=== PATIENT | female | born 1930 | race Asian ===

== ENCOUNTER 2017-04-20 22:50 | Inpatient (IN) | payer BC ==
[~2017-04-20] VITALS: Ht 160 cm; Wt 69.9 kg
[~2017-04-20 22:50] MED LIST: APIX2.5T PO; FAMO-129 PO; FERR-57 PO; FURO-150 PO; GABA-531 PO; GLIM4TAB PO; LEVO75TA7 PO; POTA20TA83 PO; SOLI5TAB6 PO; TRAM50TA2 PO
[2017-04-20 22:52] VITALS: BP_SYST 154
[2017-04-20] MEDS ORDERED: NACL 0.9% 1,000 ML IV ONE (22:59)
[2017-04-20] MEDS ORDERED: ONDANSETRON HCL 4 MG/2 ML VIAL IVP ONE (23:00)
[2017-04-20] MEDS ORDERED: FURO20TA4 PO (23:13)
[2017-04-20 23:25] LABS: BASOPHILS # (AUTO) 0.2 K/uL (0.0-0.2); BASOPHILS % (AUTO) 1.8 % (0.0-2.0); HEMATOCRIT 35.2 % (36-48); HEMOGLOBIN 11.8 g/dL (12.0-16.0); LYMPHOCYTES # (AUTO) 0.6 K/uL (1.0-5.5); LYMPHOCYTES % (AUTO) 4.3 % (20.5-51.5); MEAN CORPUSCULAR HEMOGLOBIN 30 pg (27-31); MEAN CORPUSCULAR HGB CONC 34 % (32-36); MEAN CORPUSCULAR VOLUME 91 fL (79.0-98.0); MONOCYTES % (AUTO) 7.7 % (1.7-9.3); NEUTROPHILS # (AUTO) 11.6 K/uL (1.8-7.7); NEUTROPHILS % (AUTO) 86.2 % (40.0-70.0); PLATELET COUNT (AUTO) 216 K/uL (130-430); RED BLOOD CELL COUNT(AUTO) 3.89 MIL/uL (4.2-6.2); RED CELL DISTRIBUTION WIDTH 13.2 % (9.0-15.0); WHITE BLOOD COUNT (AUTO) 13.4 K/uL (4.8-10.8)
[2017-04-20 23:33] LABS: ANION GAP 9 (5-15); CALCIUM 8.4 mg/dL (8.4-11.0); CHLORIDE 95 mmol/L (98-107); CREATININE 1.43 mg/dL (0.55-1.30); GLUCOSE 311 mg/dL (70-99); POTASSIUM 3.5 mmol/L (3.5-5.1); SODIUM SERUM 127 mmol/L (136-145); UREA NITROGEN, BLOOD 26 mg/dL (8-21)
[2017-04-20 23:37] LABS: PROTHROMBIN TIME 10.8 SECS (9.5-12.5)
[2017-04-20 23:38] LABS: ALANINE AMINOTRANSFERASE 17 U/L (12-78); AMYLASE 35 U/L (0-100); ASPARTATE AMINOTRANSFERASE 18 U/L (10-37); LIPASE 145 U/L (73-393); TOTAL BILIRUBIN 1.3 mg/dL (0.0-1.0); TOTAL PROTEIN, SERUM 7.7 g/dL (6.4-8.3)
[2017-04-21] VITALS (25 sets, daily range): BP systolic 86–164
[2017-04-21] MEDS ORDERED: LOSA25TA3 PO (00:53)
[2017-04-21] MEDS ORDERED: RALO60TA PO (00:53)
[2017-04-21] MEDS ORDERED: INSU100V9 SUBCUT (00:53)
[2017-04-21] MEDS ORDERED: ASPI-1063 PO (00:53)
[2017-04-21 01:10] LABS: BILIRUBIN,URINE NEGATIVE (NEGATIVE); BLOOD, URINE 3+ (NEGATIVE); CLARITY/URINE CLOUDY (CLEAR); COLOR,URINE YELLOW (YELLOW); GLUCOSE,URINE 3+ (NEGATIVE); KETONES,URINE 1+ (NEGATIVE); LEUKOCYTE ESTERASE ,URINE 1+ (NEGATIVE); NITRITE, URINE NEGATIVE (NEGATIVE); PROTEIN URINE 3+ (NEGATIVE); UROBILINOGEN,URINE 0.2 (0.2-1.0)
[2017-04-21 01:37] LABS: BACTERIA,URINE FEW /HPF (None Seen); WBC,URINE 50-80 /HPF (0-3)
[2017-04-21 01:38] LABS: MUCUS,URINE None Seen /LPF (None Seen)
[2017-04-21] MEDS: NACL 0.9% 1,000 ML IV SCH ×3 (01:45→18:46)
[2017-04-21] MEDS ORDERED: INSULIN REGULAR, HUMAN 100 UNITS/ML, 10 ML VIAL (novoLIN R) SUBCUT PRN (01:45)
[2017-04-21] MEDS ORDERED: FERR-57 PO (01:50)
[2017-04-21] MEDS ORDERED: ALBU8.5H8 INH (01:50)
[2017-04-21] MEDS ORDERED: MULT-1164 PO (01:50)
[2017-04-21] MEDS ORDERED: PIPERACILLIN/TAZO 3.375/DEX-IS 50 ML IV SCH (03:15)
[2017-04-21] MEDS ORDERED: PIPERACILLIN/TAZO 3.375/DEX-IS 50 ML IV ONE (04:00)
[2017-04-21] MEDS ORDERED: PIPERACILLIN/TAZOBACTAM 3.375 GM/VIAL (ZOSYN) IV ONE (04:16)
[2017-04-21] MEDS ORDERED: HEPARIN SODIUM,PORCINE 3000 UNITS/0.6 ML BOLUS IVP PRN ×2 (06:00→18:30)
[2017-04-21] MEDS ORDERED: HEPARIN 25,000 UNITS in 250 ML PREMIX IV PRN (06:00)
[2017-04-21] MEDS ORDERED: HEPARIN SODIUM,PORCINE 5000 UNITS/ML VIAL IV ONE (06:00)
[2017-04-21] MEDS ORDERED: HEPARIN SODIUM,PORCINE 2000 UNITS/0.4 ML BOLUS IVP PRN ×2 (06:00→18:30)
[2017-04-21] MEDS ORDERED: LevALBUTEROL HCL 1.25 MG/0.5 ML *CONC.* VIAL.NEB (XOPENEX CONC.) INH PRN (06:15)
[2017-04-21] MEDS ORDERED: DILTIAZEM HCL 25 MG/5 ML VIAL IVP ONE (06:15)
[2017-04-21] MEDS ORDERED: methylPREDNISolone SOD SUCC 40 MG/ML VIAL ONE (06:28)
[2017-04-21 06:30] LABS: BLOOD GAS PH 7.371 (7.350-7.450)
[2017-04-21] MEDS ORDERED: methylPREDNISolone SOD SUCC 40 MG/ML VIAL IVP ONE (06:30)
[2017-04-21 06:31] LABS: ABG TOTAL HEMOGLOBIN 14.1 G/dL (12.0-18.0)
[2017-04-21 06:32] LABS: BLOOD GAS COHb% 0.4 % (0.5-1.5); BLOOD GAS HHB 11.1 % (0.0-6.0); BLOOD O2Hb% 88.2 % (94.0-97.0)
[2017-04-21] MEDS ORDERED: FUROSEMIDE 40 MG/4 ML VIAL IVP ONE (06:40)
[2017-04-21] MEDS ORDERED: FUROSEMIDE 40 MG/4 ML VIAL ONE (06:47)
[2017-04-21] MEDS: LevALBUTEROL HCL 1.25 MG/0.5 ML *CONC.* VIAL.NEB (XOPENEX CONC.) INH SCH ×5 (06:53→23:16)
[2017-04-21] MEDS ORDERED: BUDESONIDE 0.5 MG/2 ML AMPUL.NEB INH SCH ×2 (07:00→09:00)
[2017-04-21] MEDS ORDERED: NACL 0.9% 1,000 ML IV SCH (07:17)
[2017-04-21] MEDS ORDERED: ACETAMINOPHEN 325 MG TABLET PO PRN (07:30)
[2017-04-21] MEDS ORDERED: MORPHINE 2 MG/ML INJ. SYRINGE IVP PRN ×2 (07:30→11:45)
[2017-04-21] MEDS ORDERED: ONDANSETRON HCL 4 MG/2 ML VIAL IVP PRN (07:30)
[2017-04-21] MEDS ORDERED: cefTRIAXone 1 GM in D5W 50 ML IV SCH (07:30)
[2017-04-21] MEDS ORDERED: DEXTROSE 50%-WATER 50 ML DISP.SYRIN IVP PRN ×2 (08:00)
[2017-04-21] MEDS ORDERED: GLUCOSE 15 GM GEL (in 37.5 GM TUBE) PO PRN ×2 (08:00)
[2017-04-21] MEDS ORDERED: SUCCINYLCHOLINE CHLORIDE 20 MG/ML(QUELICIN) ONE (08:00)
[2017-04-21] MEDS ORDERED: ETOMIDATE 20 MG/ 10 ML VIAL (AMIDATE) ONE (08:00)
[2017-04-21 08:13] LABS: ALANINE AMINOTRANSFERASE 19 U/L (12-78); ALBUMIN 2.9 g/dL (3.4-4.8); AMYLASE 46 U/L (0-100); ANION GAP 11 (5-15); ASPARTATE AMINOTRANSFERASE 31 U/L (10-37); CALCIUM 8.3 mg/dL (8.4-11.0); CHLORIDE 98 mmol/L (98-107); CREATININE 1.59 mg/dL (0.55-1.30); GLUCOSE 370 mg/dL (70-99); LIPASE 110 U/L (73-393); PHOSPHORUS 3.6 mg/dL (2.7-4.5); POTASSIUM 3.8 mmol/L (3.5-5.1); SODIUM SERUM 130 mmol/L (136-145); THYROID STIMULATING HORMONE 0.35 uIu/mL (0.34-4.82); TOTAL BILIRUBIN 1.4 mg/dL (0.0-1.0); UREA NITROGEN, BLOOD 26 mg/dL (8-21)
[2017-04-21 08:20] LABS: HEMATOCRIT 40.5 % (36-48); MEAN CORPUSCULAR HEMOGLOBIN 30 pg (27-31); MEAN CORPUSCULAR HGB CONC 32 % (32-36); MEAN CORPUSCULAR VOLUME 92 fL (79.0-98.0); PLATELET COUNT (AUTO) 232 K/uL (130-430); RED BLOOD CELL COUNT(AUTO) 4.39 MIL/uL (4.2-6.2); RED CELL DISTRIBUTION WIDTH 13.3 % (9.0-15.0); WHITE BLOOD COUNT (AUTO) 17.7 K/uL (4.8-10.8)
[2017-04-21 08:21] LABS: BILIRUBIN,URINE NEGATIVE (NEGATIVE); BLOOD, URINE 2+ (NEGATIVE); CLARITY/URINE CLOUDY (CLEAR); COLOR,URINE YELLOW (YELLOW); GLUCOSE,URINE 3+ (NEGATIVE); KETONES,URINE NEGATIVE (NEGATIVE); LEUKOCYTE ESTERASE ,URINE 3+ (NEGATIVE); NITRITE, URINE NEGATIVE (NEGATIVE); PROTEIN URINE 2+ (NEGATIVE); UROBILINOGEN,URINE 0.2 (0.2-1.0)
[2017-04-21] MEDS: PROPOFOL DRIP 100 ML IV PRN ×2 (08:22→21:56)
[2017-04-21] MEDS ORDERED: LEVOTHYROXINE SODIUM 0.075 MG TABLET PO ONE (08:30)
[2017-04-21 08:52] LABS: BACTERIA,URINE FEW /HPF (None Seen); WBC,URINE >100 /HPF (0-3)
[2017-04-21] MEDS ORDERED: DOCUSATE SODIUM 100 MG CAPSULE PO SCH (09:00)
[2017-04-21] MEDS ORDERED: HEPARIN SODIUM,PORCINE 5000 UNITS/ML VIAL SUBCUT SCH (09:00)
[2017-04-21] MEDS ORDERED: ASPIRIN 81 MG TABLET(ECOTRIN) PO SCH (09:00)
[2017-04-21] MEDS ORDERED: APIXABAN 2.5 MG TABLET PO SCH (09:00)
[2017-04-21] MEDS ORDERED: *HEPARIN PER PHARMACY XX PRN (09:00)
[2017-04-21] MEDS ORDERED: RALOXIFENE HCL 60 MG TABLET (EVISTA) PO SCH (09:00)
[2017-04-21] MEDS ORDERED: POTASSIUM CHLORIDE 20 MEQ TAB.PRT.SR PO SCH (09:00)
[2017-04-21] MEDS ORDERED: LOSARTAN POTASSIUM 25 MG TABLET PO SCH (09:00)
[2017-04-21] MEDS: METOPROLOL TARTRATE 25 MG TABLET PO SCH ×2 (09:00→21:00)
[2017-04-21] MEDS ORDERED: NACL 0.9% 1,000 ML IV ONE (10:00)
[2017-04-21 10:24] LABS: BLOOD GAS PH 7.405 (7.350-7.450)
[2017-04-21] MEDS: FERROUS SULFATE 325 MG TABLET.DR PO SCH ×2 (10:24→21:00)
[2017-04-21] MEDS: GABAPENTIN 300 MG CAPSULE PO SCH ×2 (10:24→22:06)
[2017-04-21 10:25] LABS: ABG TOTAL HEMOGLOBIN 13.2 G/dL (12.0-18.0); BLOOD GAS BASE EXCESS -5.8 mmol/L (-3.0-3.0); BLOOD GAS COHb% 0.2 % (0.5-1.5); BLOOD GAS HHB 2.2 % (0.0-6.0); BLOOD O2Hb% 97.1 % (94.0-97.0)
[2017-04-21 10:38] LABS: BAND % (MANUAL) 14 % (0-6)
[2017-04-21 10:39] LABS: ATYPICAL LYMPHOCYTES % 4 % (0-0); BASOPHILS % (MANUAL) 0 % (0-2); EOSINOPHILS % (MANUAL) 0 % (0-7); LYMPHOCYTES % (MANUAL) 3 % (20-46); MONOCYTES % (MANUAL) 3 % (0-11)
[2017-04-21] MEDS: PIPERACILLIN/TAZO 2.25G/DEX-IS 50 ML IV SCH ×2 (11:08→18:12)
[2017-04-21] MEDS ORDERED: LORazepam 2 MG/ML VIAL IVP PRN (11:45)
[2017-04-21] MEDS ORDERED: INSULIN REGULAR, HUMAN 100 UNITS/ML, 10 ML VIAL SUBCUT ONE ×2 (13:15→18:15)
[2017-04-21] MEDS ORDERED: SUCCINYLCHOLINE CHLORIDE 20 MG/ML(QUELICIN) IVP ONE (15:00)
[2017-04-21] MEDS ORDERED: ETOMIDATE 20 MG/ 10 ML VIAL (AMIDATE) IVP ONE (15:00)
[2017-04-21] MEDS: INSULIN REGULAR, HUMAN 100 UNITS/ML, 10 ML VIAL (novoLIN R) SUBCUT PRN ×2 (17:01→22:27)
[2017-04-21] MEDS ORDERED: COMMUNICATION ORDER XX ONE (17:45)
[2017-04-21] MEDS: NOREPINEPHRINE BITARTRATE 4 MG in D5W 246 ML IV PRN (18:15)
[2017-04-21] MEDS: HEPARIN 25,000 UNITS/D5W 250ML 250 ML IV PRN (18:49)
[2017-04-21 19:33] LABS: ANION GAP 9 (5-15); CALCIUM 7.9 mg/dL (8.4-11.0); CHLORIDE 103 mmol/L (98-107); CREATININE 1.89 mg/dL (0.55-1.30); POTASSIUM 3.5 mmol/L (3.5-5.1); SODIUM SERUM 133 mmol/L (136-145); UREA NITROGEN, BLOOD 36 mg/dL (8-21)
[2017-04-21 19:36] LABS: GLUCOSE 424 mg/dL (70-99)
[2017-04-21] MEDS ORDERED: INSULIN GLARGINE 100 UNITS/ML 10 ML VIAL SUBCUT SCH (21:00)
[2017-04-21] MEDS ORDERED: methylPREDNISolone SOD SUCC 40 MG/ML VIAL IVP SCH (21:00)
[2017-04-21] MEDS ORDERED: SIMVASTATIN 20 MG TABLET PO SCH (21:00)
[2017-04-22] VITALS (29 sets, daily range): BP systolic 90–125
[2017-04-22] MEDS: PIPERACILLIN/TAZO 2.25G/DEX-IS 50 ML IV SCH ×4 (00:45→17:37)
[2017-04-22] MEDS: LevALBUTEROL HCL 1.25 MG/0.5 ML *CONC.* VIAL.NEB (XOPENEX CONC.) INH SCH ×6 (04:12→23:04)
[2017-04-22] MEDS: INSULIN REGULAR, HUMAN 100 UNITS/ML, 10 ML VIAL (novoLIN R) SUBCUT PRN ×3 (06:46→21:23)
[2017-04-22] MEDS: NACL 0.9% 1,000 ML IV SCH (06:47)
[2017-04-22 06:49] LABS: BASOPHILS % (AUTO) 0.1 % (0.0-2.0); HEMATOCRIT 31.2 % (36-48); HEMOGLOBIN 10.4 g/dL (12.0-16.0); LYMPHOCYTES # (AUTO) 0.6 K/uL (1.0-5.5); LYMPHOCYTES % (AUTO) 3.2 % (20.5-51.5); MEAN CORPUSCULAR HEMOGLOBIN 31 pg (27-31); MEAN CORPUSCULAR HGB CONC 34 % (32-36); MEAN CORPUSCULAR VOLUME 92 fL (79.0-98.0); MONOCYTES # (AUTO) 1.5 K/uL (0.0-1.0); MONOCYTES % (AUTO) 8.6 % (1.7-9.3); NEUTROPHILS # (AUTO) 15.6 K/uL (1.8-7.7); NEUTROPHILS % (AUTO) 88.1 % (40.0-70.0); PLATELET COUNT (AUTO) 180 K/uL (130-430); RED BLOOD CELL COUNT(AUTO) 3.38 MIL/uL (4.2-6.2); RED CELL DISTRIBUTION WIDTH 13.4 % (9.0-15.0)
[2017-04-22 06:54] LABS: WHITE BLOOD COUNT (AUTO) 17.7 K/uL (4.8-10.8)
[2017-04-22] MEDS ORDERED: LEVOTHYROXINE SODIUM 0.075 MG TABLET PO SCH (07:00)
[2017-04-22 07:26] LABS: ALANINE AMINOTRANSFERASE 19 U/L (12-78); ALBUMIN 2.1 g/dL (3.4-4.8); ANION GAP 9 (5-15); ASPARTATE AMINOTRANSFERASE 40 U/L (10-37); CALCIUM 7.8 mg/dL (8.4-11.0); CHLORIDE 106 mmol/L (98-107); CHOLESTEROL 141 mg/dL (<200); CREATININE 1.68 mg/dL (0.55-1.30); GLUCOSE 290 mg/dL (70-99); HDL CHOLESTEROL 42 mg/dL (>55); LDL CHOLESTEROL 74 mg/dL (<100); SODIUM SERUM 137 mmol/L (136-145); TOTAL BILIRUBIN 0.4 mg/dL (0.0-1.0); TOTAL PROTEIN, SERUM 6.2 g/dL (6.4-8.3); TRIGLYCERIDES 96 mg/dL (30-150); UREA NITROGEN, BLOOD 38 mg/dL (8-21)
[2017-04-22 07:34] LABS: POTASSIUM 2.9 mmol/L (3.5-5.1)
[2017-04-22 07:38] LABS: BLOOD GAS BASE EXCESS -2.4 mmol/L (-3.0-3.0); BLOOD GAS COHb% 0.3 % (0.5-1.5); BLOOD GAS PH 7.405 (7.350-7.450)
[2017-04-22 07:39] LABS: BLOOD GAS HHB 2.4 % (0.0-6.0)
[2017-04-22 08:08] LABS: T4 (THYROXINE) 5.8 ug/dL (4.5-12.0)
[2017-04-22] MEDS ORDERED: POTASSIUM CHLORIDE 40 MEQ, LIDOCAINE JECT 2% PF 100 MG 50 MG in NS 250 ML IV ONE (08:15)
[2017-04-22] MEDS ORDERED: D5NS 1,000 ML IV SCH (08:45)
[2017-04-22] MEDS ORDERED: ACETAMINOPHEN 325 MG TABLET GT PRN ×2 (08:45→09:00)
[2017-04-22] MEDS ORDERED: MAGNESIUM SULFATE 50 ML IV PRN (08:45)
[2017-04-22] MEDS ORDERED: POTASSIUM CHLORIDE 10 MEQ TAB.PRT.SR GT PRN (08:45)
[2017-04-22] MEDS ORDERED: ONDANSETRON HCL 4 MG/2 ML VIAL IVP PRN (08:45)
[2017-04-22] MEDS ORDERED: ZOLPIDEM TARTRATE 5 MG TABLET GT PRN (08:45)
[2017-04-22] MEDS ORDERED: DOCUSATE SODIUM 100 MG/10 ML UDC GT PRN (08:45)
[2017-04-22] MEDS ORDERED: LORazepam 2 MG/ML VIAL IVP PRN ×2 (08:45→10:00)
[2017-04-22] MEDS: METOPROLOL TARTRATE 25 MG TABLET GT SCH ×2 (09:00→21:00)
[2017-04-22] MEDS ORDERED: GLUCOSE 15 GM GEL (in 37.5 GM TUBE) GT PRN ×2 (09:00)
[2017-04-22] MEDS: RALOXIFENE HCL 60 MG TABLET (EVISTA) GT SCH (09:13)
[2017-04-22] MEDS: GABAPENTIN 300 MG CAPSULE GT SCH ×2 (09:15→21:02)
[2017-04-22] MEDS: FERROUS SULFATE 325 MG TABLET.DR GT SCH ×2 (09:17→21:01)
[2017-04-22] MEDS: POTASSIUM CHLORIDE 20 MEQ TAB.PRT.SR GT SCH (09:18)
[2017-04-22] MEDS: LOSARTAN POTASSIUM 25 MG TABLET GT SCH (09:18)
[2017-04-22] MEDS: ASPIRIN 81 MG TABLET(ECOTRIN) GT SCH (09:24)
[2017-04-22] MEDS: PROPOFOL DRIP 100 ML IV PRN (09:45)
[2017-04-22] MEDS ORDERED: VANCOMYCIN HCL 1,000 MG in NS 250 ML IV SCH (10:00)
[2017-04-22] MEDS: 0.45% NACL 1,000 ML IV SCH (11:56)
[2017-04-22] MEDS: NOREPINEPHRINE BITARTRATE 4 MG in D5W 246 ML IV PRN (15:58)
[2017-04-22 17:02] LABS: HEMOGLOBIN A1C 7.4 % (4.8-5.6)
[2017-04-22] MEDS: SIMVASTATIN 20 MG TABLET GT SCH (21:02)
[2017-04-22] MEDS: HEPARIN 25,000 UNITS/D5W 250ML 250 ML IV PRN (21:06)
[2017-04-22] MEDS: MORPHINE 2 MG/ML INJ. SYRINGE IVP PRN (22:18)
[2017-04-23] VITALS (30 sets, daily range): BP systolic 91–131
[2017-04-23] MEDS: PIPERACILLIN/TAZO 2.25G/DEX-IS 50 ML IV SCH ×5 (00:34→23:51)
[2017-04-23] MEDS: LevALBUTEROL HCL 1.25 MG/0.5 ML *CONC.* VIAL.NEB (XOPENEX CONC.) INH SCH ×6 (03:08→23:14)
[2017-04-23] MEDS: 0.45% NACL 1,000 ML IV SCH (05:03)
[2017-04-23] MEDS: LEVOTHYROXINE SODIUM 0.075 MG TABLET GT SCH (06:04)
[2017-04-23 06:38] LABS: BASOPHILS % (AUTO) 0.1 % (0.0-2.0); EOSINOPHILS % (AUTO) 0.1 % (0.0-4.0); HEMATOCRIT 29.8 % (36-48); HEMOGLOBIN 9.9 g/dL (12.0-16.0); LYMPHOCYTES # (AUTO) 0.7 K/uL (1.0-5.5); LYMPHOCYTES % (AUTO) 5.3 % (20.5-51.5); MEAN CORPUSCULAR HEMOGLOBIN 30 pg (27-31); MEAN CORPUSCULAR HGB CONC 33 % (32-36); MEAN CORPUSCULAR VOLUME 92 fL (79.0-98.0); MONOCYTES % (AUTO) 7.2 % (1.7-9.3); NEUTROPHILS % (AUTO) 87.3 % (40.0-70.0); PLATELET COUNT (AUTO) 183 K/uL (130-430); RED BLOOD CELL COUNT(AUTO) 3.25 MIL/uL (4.2-6.2); RED CELL DISTRIBUTION WIDTH 13.8 % (9.0-15.0); WHITE BLOOD COUNT (AUTO) 13.7 K/uL (4.8-10.8)
[2017-04-23 07:11] LABS: ALANINE AMINOTRANSFERASE 20 U/L (12-78); ALBUMIN 2.1 g/dL (3.4-4.8); ANION GAP 8 (5-15); ASPARTATE AMINOTRANSFERASE 30 U/L (10-37); CALCIUM 7.7 mg/dL (8.4-11.0); CHLORIDE 111 mmol/L (98-107); CREATININE 1.51 mg/dL (0.55-1.30); GLUCOSE 110 mg/dL (70-99); POTASSIUM 3.6 mmol/L (3.5-5.1); SODIUM SERUM 141 mmol/L (136-145); TOTAL BILIRUBIN 0.4 mg/dL (0.0-1.0); UREA NITROGEN, BLOOD 37 mg/dL (8-21)
[2017-04-23] MEDS: ASPIRIN 81 MG TABLET(ECOTRIN) GT SCH (09:00)
[2017-04-23] MEDS: GABAPENTIN 300 MG CAPSULE GT SCH ×2 (09:01→21:45)
[2017-04-23] MEDS: FERROUS SULFATE 325 MG TABLET.DR GT SCH ×2 (09:01→21:45)
[2017-04-23] MEDS: RALOXIFENE HCL 60 MG TABLET (EVISTA) GT SCH (09:01)
[2017-04-23] MEDS: POTASSIUM CHLORIDE 20 MEQ TAB.PRT.SR GT SCH (09:02)
[2017-04-23] MEDS: LOSARTAN POTASSIUM 25 MG TABLET GT SCH (09:02)
[2017-04-23] MEDS ORDERED: FUROSEMIDE 20 MG/2 ML VIAL IVP ONE (09:15)
[2017-04-23] MEDS: METOPROLOL TARTRATE 25 MG TABLET GT SCH ×2 (09:30→21:46)
[2017-04-23 09:39] LABS: BLOOD GAS BASE EXCESS -3.7 mmol/L (-3.0-3.0); BLOOD GAS PH 7.381 (7.350-7.450)
[2017-04-23 09:40] LABS: ABG TOTAL HEMOGLOBIN 10.5 G/dL (12.0-18.0); BLOOD GAS COHb% 0.3 % (0.5-1.5); BLOOD GAS HHB 2.5 % (0.0-6.0); BLOOD O2Hb% 96.9 % (94.0-97.0)
[2017-04-23] MEDS: MORPHINE 2 MG/ML INJ. SYRINGE IVP PRN (10:11)
[2017-04-23] MEDS ORDERED: GENTAMICIN 100 mg/50 mL NS 50 ML IV ONE (11:00)
[2017-04-23 11:04] LABS: ABG TOTAL HEMOGLOBIN 10.3 G/dL (12.0-18.0); BLOOD GAS COHb% 0.1 % (0.5-1.5); BLOOD GAS PH 7.376 (7.350-7.450)
[2017-04-23] MEDS: D5NS 1,000 ML IV SCH (12:58)
[2017-04-23] MEDS: INSULIN REGULAR, HUMAN 100 UNITS/ML, 10 ML VIAL (novoLIN R) SUBCUT PRN (21:10)
[2017-04-23] MEDS: SIMVASTATIN 20 MG TABLET GT SCH (21:45)
[2017-04-23] MEDS: HEPARIN 25,000 UNITS/D5W 250ML 250 ML IV PRN (21:52)
[2017-04-24] VITALS (20 sets, daily range): BP systolic 102–132
[2017-04-24] MEDS: LevALBUTEROL HCL 1.25 MG/0.5 ML *CONC.* VIAL.NEB (XOPENEX CONC.) INH SCH ×6 (03:14→23:48)
[2017-04-24] MEDS: D5NS 1,000 ML IV SCH (05:08)
[2017-04-24] MEDS: PIPERACILLIN/TAZO 2.25G/DEX-IS 50 ML IV SCH ×2 (05:38→11:27)
[2017-04-24] MEDS: LEVOTHYROXINE SODIUM 0.075 MG TABLET GT SCH (06:28)
[2017-04-24] MEDS: INSULIN REGULAR, HUMAN 100 UNITS/ML, 10 ML VIAL (novoLIN R) SUBCUT PRN ×4 (06:42→20:47)
[2017-04-24 07:03] LABS: BASOPHILS % (AUTO) 0.3 % (0.0-2.0); EOSINOPHILS % (AUTO) 0.6 % (0.0-4.0); HEMATOCRIT 28.6 % (36-48); HEMOGLOBIN 9.5 g/dL (12.0-16.0); LYMPHOCYTES # (AUTO) 1.6 K/uL (1.0-5.5); LYMPHOCYTES % (AUTO) 19.9 % (20.5-51.5); MEAN CORPUSCULAR HEMOGLOBIN 31 pg (27-31); MEAN CORPUSCULAR HGB CONC 33 % (32-36); MEAN CORPUSCULAR VOLUME 92 fL (79.0-98.0); MONOCYTES # (AUTO) 0.6 K/uL (0.0-1.0); NEUTROPHILS # (AUTO) 5.6 K/uL (1.8-7.7); NEUTROPHILS % (AUTO) 71.2 % (40.0-70.0); PLATELET COUNT (AUTO) 189 K/uL (130-430); RED BLOOD CELL COUNT(AUTO) 3.12 MIL/uL (4.2-6.2); RED CELL DISTRIBUTION WIDTH 13.6 % (9.0-15.0)
[2017-04-24 07:04] LABS: ALANINE AMINOTRANSFERASE 19 U/L (12-78); ALBUMIN 1.9 g/dL (3.4-4.8); ANION GAP 6 (5-15); ASPARTATE AMINOTRANSFERASE 21 U/L (10-37); CHLORIDE 111 mmol/L (98-107); CREATININE 1.39 mg/dL (0.55-1.30); GLUCOSE 221 mg/dL (70-99); POTASSIUM 3.5 mmol/L (3.5-5.1); SODIUM SERUM 140 mmol/L (136-145); TOTAL BILIRUBIN 0.5 mg/dL (0.0-1.0); TOTAL PROTEIN, SERUM 5.7 g/dL (6.4-8.3); UREA NITROGEN, BLOOD 28 mg/dL (8-21)
[2017-04-24 07:06] LABS: WHITE BLOOD COUNT (AUTO) 7.8 K/uL (4.8-10.8)
[2017-04-24] MEDS: FERROUS SULFATE 325 MG TABLET.DR GT SCH ×2 (08:17→20:39)
[2017-04-24] MEDS: GABAPENTIN 300 MG CAPSULE GT SCH ×2 (08:17→20:39)
[2017-04-24] MEDS: LOSARTAN POTASSIUM 25 MG TABLET GT SCH (08:17)
[2017-04-24] MEDS: ASPIRIN 81 MG TABLET(ECOTRIN) GT SCH (08:17)
[2017-04-24] MEDS: POTASSIUM CHLORIDE 20 MEQ TAB.PRT.SR GT SCH (08:17)
[2017-04-24] MEDS: RALOXIFENE HCL 60 MG TABLET (EVISTA) GT SCH (08:19)
[2017-04-24] MEDS: METOPROLOL TARTRATE 25 MG TABLET GT SCH ×2 (08:29→20:39)
[2017-04-24] MEDS ORDERED: FUROSEMIDE 20 MG/2 ML VIAL IVP ONE (09:30)
[2017-04-24] MEDS: NACL 0.9% 1,000 ML IV SCH ×2 (11:09→22:03)
[2017-04-24] MEDS ORDERED: APIXABAN 2.5 MG TABLET PO ONE (12:15)
[2017-04-24] MEDS: SIMVASTATIN 20 MG TABLET GT SCH (20:40)
[2017-04-24] MEDS: APIXABAN 2.5 MG TABLET PO SCH (20:40)
[2017-04-25] MEDS: LevALBUTEROL HCL 1.25 MG/0.5 ML *CONC.* VIAL.NEB (XOPENEX CONC.) INH SCH ×5 (03:47→20:05)
[2017-04-25] MEDS: NACL 0.9% 1,000 ML IV SCH (06:09)
[2017-04-25] MEDS: LEVOTHYROXINE SODIUM 0.075 MG TABLET GT SCH (07:04)
[2017-04-25 08:02] VITALS: BP_SYST 128
[2017-04-25 08:02] LABS: BASOPHILS % (AUTO) 0.2 % (0.0-2.0); EOSINOPHILS # (AUTO) 0.1 K/uL (0.0-0.4); EOSINOPHILS % (AUTO) 1.8 % (0.0-4.0); HEMATOCRIT 30.2 % (36-48); HEMOGLOBIN 9.9 g/dL (12.0-16.0); LYMPHOCYTES # (AUTO) 1.7 K/uL (1.0-5.5); LYMPHOCYTES % (AUTO) 24.4 % (20.5-51.5); MEAN CORPUSCULAR HEMOGLOBIN 30 pg (27-31); MEAN CORPUSCULAR HGB CONC 33 % (32-36); MEAN CORPUSCULAR VOLUME 92 fL (79.0-98.0); MONOCYTES # (AUTO) 0.6 K/uL (0.0-1.0); MONOCYTES % (AUTO) 8.7 % (1.7-9.3); NEUTROPHILS # (AUTO) 4.6 K/uL (1.8-7.7); NEUTROPHILS % (AUTO) 64.9 % (40.0-70.0); PLATELET COUNT (AUTO) 218 K/uL (130-430); RED BLOOD CELL COUNT(AUTO) 3.28 MIL/uL (4.2-6.2); RED CELL DISTRIBUTION WIDTH 13.4 % (9.0-15.0)
[2017-04-25 08:19] LABS: ANION GAP 6 (5-15); CHLORIDE 110 mmol/L (98-107); CREATININE 1.07 mg/dL (0.55-1.30); GLUCOSE 103 mg/dL (70-99); POTASSIUM 3.2 mmol/L (3.5-5.1); SODIUM SERUM 142 mmol/L (136-145); UREA NITROGEN, BLOOD 18 mg/dL (8-21)
[2017-04-25] MEDS: POTASSIUM CHLORIDE 20 MEQ TAB.PRT.SR GT SCH (08:56)
[2017-04-25] MEDS: APIXABAN 2.5 MG TABLET PO SCH ×2 (08:56→21:08)
[2017-04-25] MEDS: LOSARTAN POTASSIUM 25 MG TABLET GT SCH (08:57)
[2017-04-25] MEDS: ASPIRIN 81 MG TABLET(ECOTRIN) GT SCH (08:57)
[2017-04-25] MEDS: GABAPENTIN 300 MG CAPSULE GT SCH (08:57)
[2017-04-25] MEDS: FERROUS SULFATE 325 MG TABLET.DR GT SCH (08:57)
[2017-04-25] MEDS: METOPROLOL TARTRATE 25 MG TABLET GT SCH (08:58)
[2017-04-25] MEDS: RALOXIFENE HCL 60 MG TABLET (EVISTA) GT SCH (09:26)
[2017-04-25] MEDS: MORPHINE 2 MG/ML INJ. SYRINGE IVP PRN (10:45)
[2017-04-25] MEDS ORDERED: COMMUNICATION ORDER XX ONE (11:45)
[2017-04-25 12:01] LABS: BILIRUBIN,URINE NEGATIVE (NEGATIVE); BLOOD, URINE 3+ (NEGATIVE); CLARITY/URINE SL HAZY (CLEAR); COLOR,URINE RED (YELLOW); GLUCOSE,URINE NEGATIVE (NEGATIVE); KETONES,URINE NEGATIVE (NEGATIVE); LEUKOCYTE ESTERASE ,URINE TRACE (NEGATIVE); NITRITE, URINE NEGATIVE (NEGATIVE); PH,URINE 6.5 (5.0-8.0); PROTEIN URINE 2+ (NEGATIVE); UROBILINOGEN,URINE 0.2 (0.2-1.0)
[2017-04-25 12:09] LABS: BACTERIA,URINE FEW /HPF (None Seen); MUCUS,URINE 1+ /LPF (None Seen); RBC,URINE 50-80 /HPF (0-3)
[2017-04-25] MEDS: INSULIN REGULAR, HUMAN 100 UNITS/ML, 10 ML VIAL (novoLIN R) SUBCUT PRN ×3 (12:13→21:23)
[2017-04-25 12:19] VITALS: BP_SYST 116
[2017-04-25] MEDS ORDERED: GLUCOSE 15 GM GEL (in 37.5 GM TUBE) PO PRN ×2 (12:30)
[2017-04-25] MEDS ORDERED: DOCUSATE SODIUM 100 MG CAPSULE PO PRN (12:30)
[2017-04-25] MEDS ORDERED: POTASSIUM CHLORIDE 10 MEQ TAB.PRT.SR PO PRN (12:30)
[2017-04-25] MEDS ORDERED: ACETAMINOPHEN 325 MG TABLET PO PRN (14:00)
[2017-04-25 16:03] VITALS: BP_SYST 121
[2017-04-25 19:05] VITALS: BP_SYST 118
[2017-04-25] MEDS: SIMVASTATIN 20 MG TABLET PO SCH (21:08)
[2017-04-25] MEDS: GABAPENTIN 300 MG CAPSULE PO SCH (21:08)
[2017-04-25] MEDS: FERROUS SULFATE 325 MG TABLET.DR PO SCH (21:09)
[2017-04-25] MEDS: METOPROLOL TARTRATE 25 MG TABLET PO SCH (21:10)
[2017-04-25 23:45] VITALS: BP_SYST 122
[2017-04-26] VITALS (7 sets, daily range): BP systolic 126–138
[2017-04-26] MEDS: LevALBUTEROL HCL 1.25 MG/0.5 ML *CONC.* VIAL.NEB (XOPENEX CONC.) INH SCH ×7 (00:37→23:05)
[2017-04-26] MEDS: NACL 0.9% 1,000 ML IV SCH ×2 (06:17→10:47)
[2017-04-26] MEDS: LEVOTHYROXINE SODIUM 0.075 MG TABLET PO SCH (06:18)
[2017-04-26 07:25] LABS: BASOPHILS % (AUTO) 0.4 % (0.0-2.0); EOSINOPHILS # (AUTO) 0.2 K/uL (0.0-0.4); EOSINOPHILS % (AUTO) 2.2 % (0.0-4.0); HEMATOCRIT 30.2 % (36-48); HEMOGLOBIN 10.1 g/dL (12.0-16.0); LYMPHOCYTES # (AUTO) 1.8 K/uL (1.0-5.5); MEAN CORPUSCULAR HEMOGLOBIN 31 pg (27-31); MEAN CORPUSCULAR HGB CONC 33 % (32-36); MEAN CORPUSCULAR VOLUME 92 fL (79.0-98.0); MONOCYTES # (AUTO) 0.5 K/uL (0.0-1.0); MONOCYTES % (AUTO) 7.4 % (1.7-9.3); NEUTROPHILS # (AUTO) 4.5 K/uL (1.8-7.7); PLATELET COUNT (AUTO) 259 K/uL (130-430); RED BLOOD CELL COUNT(AUTO) 3.28 MIL/uL (4.2-6.2); RED CELL DISTRIBUTION WIDTH 13.3 % (9.0-15.0)
[2017-04-26 07:47] LABS: ANION GAP 5 (5-15); CALCIUM 8.1 mg/dL (8.4-11.0); CHLORIDE 111 mmol/L (98-107); CREATININE 1.05 mg/dL (0.55-1.30); GLUCOSE 138 mg/dL (70-99); SODIUM SERUM 141 mmol/L (136-145); UREA NITROGEN, BLOOD 17 mg/dL (8-21)
[2017-04-26] MEDS: POTASSIUM CHLORIDE 20 MEQ TAB.PRT.SR PO SCH (08:43)
[2017-04-26] MEDS: GABAPENTIN 300 MG CAPSULE PO SCH ×2 (08:43→20:43)
[2017-04-26] MEDS: ASPIRIN 81 MG TABLET(ECOTRIN) PO SCH (08:43)
[2017-04-26] MEDS: LOSARTAN POTASSIUM 25 MG TABLET PO SCH (08:43)
[2017-04-26] MEDS: METOPROLOL TARTRATE 25 MG TABLET PO SCH ×2 (08:44→20:45)
[2017-04-26] MEDS: APIXABAN 2.5 MG TABLET PO SCH ×2 (08:44→20:43)
[2017-04-26] MEDS: FERROUS SULFATE 325 MG TABLET.DR PO SCH ×2 (08:44→20:43)
[2017-04-26] MEDS ORDERED: POTASSIUM CHLORIDE 20 MEQ TAB.PRT.SR PO SCH (09:00)
[2017-04-26] MEDS: RALOXIFENE HCL 60 MG TABLET (EVISTA) PO SCH (10:06)
[2017-04-26] MEDS: INSULIN REGULAR, HUMAN 100 UNITS/ML, 10 ML VIAL (novoLIN R) SUBCUT PRN ×3 (11:38→20:54)
[2017-04-26] MEDS: SIMVASTATIN 20 MG TABLET PO SCH (20:44)
[2017-04-27 03:41] VITALS: BP_SYST 137
[2017-04-27] MEDS: LevALBUTEROL HCL 1.25 MG/0.5 ML *CONC.* VIAL.NEB (XOPENEX CONC.) INH SCH ×6 (04:11→23:30)
[2017-04-27] MEDS: NACL 0.9% 1,000 ML IV SCH (05:26)
[2017-04-27] MEDS: LEVOTHYROXINE SODIUM 0.075 MG TABLET PO SCH (06:40)
[2017-04-27 06:50] LABS: BASOPHILS % (AUTO) 0.3 % (0.0-2.0); EOSINOPHILS # (AUTO) 0.2 K/uL (0.0-0.4); EOSINOPHILS % (AUTO) 2.9 % (0.0-4.0); HEMATOCRIT 30.5 % (36-48); LYMPHOCYTES # (AUTO) 1.8 K/uL (1.0-5.5); LYMPHOCYTES % (AUTO) 29.2 % (20.5-51.5); MEAN CORPUSCULAR HEMOGLOBIN 30 pg (27-31); MEAN CORPUSCULAR HGB CONC 33 % (32-36); MEAN CORPUSCULAR VOLUME 92 fL (79.0-98.0); MONOCYTES # (AUTO) 0.5 K/uL (0.0-1.0); NEUTROPHILS # (AUTO) 3.6 K/uL (1.8-7.7); NEUTROPHILS % (AUTO) 59.6 % (40.0-70.0); PLATELET COUNT (AUTO) 292 K/uL (130-430); RED CELL DISTRIBUTION WIDTH 13.4 % (9.0-15.0); WHITE BLOOD COUNT (AUTO) 6.1 K/uL (4.8-10.8)
[2017-04-27 07:35] LABS: ANION GAP 5 (5-15); CALCIUM 8.5 mg/dL (8.4-11.0); CHLORIDE 110 mmol/L (98-107); CREATININE 1.03 mg/dL (0.55-1.30); GLUCOSE 137 mg/dL (70-99); POTASSIUM 3.9 mmol/L (3.5-5.1); SODIUM SERUM 140 mmol/L (136-145); UREA NITROGEN, BLOOD 15 mg/dL (8-21)
[2017-04-27 08:00] VITALS: BP_SYST 131
[2017-04-27] MEDS: POTASSIUM CHLORIDE 20 MEQ TAB.PRT.SR PO SCH (10:08)
[2017-04-27] MEDS: APIXABAN 2.5 MG TABLET PO SCH ×2 (10:08→20:54)
[2017-04-27] MEDS: LOSARTAN POTASSIUM 25 MG TABLET PO SCH (10:08)
[2017-04-27] MEDS: GABAPENTIN 300 MG CAPSULE PO SCH ×2 (10:08→20:54)
[2017-04-27] MEDS: METOPROLOL TARTRATE 25 MG TABLET PO SCH ×2 (10:11→20:56)
[2017-04-27] MEDS: ASPIRIN 81 MG TABLET(ECOTRIN) PO SCH (10:12)
[2017-04-27] MEDS: RALOXIFENE HCL 60 MG TABLET (EVISTA) PO SCH (10:19)
[2017-04-27 11:30] VITALS: BP_SYST 143
[2017-04-27] MEDS: INSULIN REGULAR, HUMAN 100 UNITS/ML, 10 ML VIAL (novoLIN R) SUBCUT PRN ×3 (12:55→21:29)
[2017-04-27 14:35] VITALS: BP_SYST 140
[2017-04-27] MEDS: FERROUS SULFATE 325 MG TABLET.DR PO SCH ×2 (15:11→20:55)
[2017-04-27 17:03] VITALS: BP_SYST 126
[2017-04-27 20:00] VITALS: BP_SYST 129
[2017-04-27] MEDS: SIMVASTATIN 20 MG TABLET PO SCH (20:54)
[2017-04-28] VITALS (7 sets, daily range): BP systolic 120–137
[2017-04-28] MEDS: LevALBUTEROL HCL 1.25 MG/0.5 ML *CONC.* VIAL.NEB (XOPENEX CONC.) INH SCH ×5 (03:46→19:43)
[2017-04-28] MEDS: LEVOTHYROXINE SODIUM 0.075 MG TABLET PO SCH (06:44)
[2017-04-28] MEDS: INSULIN REGULAR, HUMAN 100 UNITS/ML, 10 ML VIAL (novoLIN R) SUBCUT PRN ×4 (06:45→21:17)
[2017-04-28] MEDS: GABAPENTIN 300 MG CAPSULE PO SCH ×2 (08:36→21:10)
[2017-04-28] MEDS: FERROUS SULFATE 325 MG TABLET.DR PO SCH ×2 (08:37→21:10)
[2017-04-28] MEDS: ASPIRIN 81 MG TABLET(ECOTRIN) PO SCH (08:37)
[2017-04-28] MEDS: POTASSIUM CHLORIDE 20 MEQ TAB.PRT.SR PO SCH (08:37)
[2017-04-28] MEDS: APIXABAN 2.5 MG TABLET PO SCH ×2 (08:37→21:10)
[2017-04-28] MEDS: RALOXIFENE HCL 60 MG TABLET (EVISTA) PO SCH (08:38)
[2017-04-28] MEDS: METOPROLOL TARTRATE 25 MG TABLET PO SCH ×2 (08:39→21:10)
[2017-04-28] MEDS: LOSARTAN POTASSIUM 25 MG TABLET PO SCH (08:39)
[2017-04-28] MEDS: SIMVASTATIN 20 MG TABLET PO SCH (21:10)
== END 2017-04-28 22:10 | DRG 871 ==
LOC: SED 22:50 → STU 04-21 01:34 → SIC 04-21 07:01 → STU 04-24 15:10
PROVIDERS: ADMIT Family Medicine; ATTEND Family Medicine
PROC: 5A1945Z Respiratory Ventilation, 24-96 Consecutive Hours (ICD-10-PCS; principal; 2017-04-21)
PROC: 0BH17EZ Insertion of Endotracheal Airway into Trachea, Via Natural or Artificial Opening (ICD-10-PCS; 2017-04-21)
PROC: 06HM33Z Insertion of Infusion Device into Right Femoral Vein, Percutaneous Approach (ICD-10-PCS; 2017-04-21)
PROC: B54BZZA Ultrasonography of Right Lower Extremity Veins, Guidance (ICD-10-PCS; 2017-04-21)
PROC: 5A09357 Assistance with Respiratory Ventilation, Less than 24 Consecutive Hours, Continuous Positive Airway Pressure (ICD-10-PCS; 2017-04-23)
DX: A41.50 Gram-negative sepsis, unspecified (principal); J69.0 Pneumonitis due to inhalation of food and vomit; R65.21 Severe sepsis with septic shock; N17.0 Acute kidney failure with tubular necrosis; J96.01 Acute respiratory failure with hypoxia; I21.3 ST elevation (STEMI) myocardial infarction of unspecified site; E87.1 Hypo-osmolality and hyponatremia; I13.0 Hypertensive heart and chronic kidney disease with heart failure and stage 1 through stage 4 chronic kidney disease, or unspecified chronic kidney disease; N10 Acute pyelonephritis; I24.9 Acute ischemic heart disease, unspecified; K21.9 Gastro-esophageal reflux disease without esophagitis; E11.22 Type 2 diabetes mellitus with diabetic chronic kidney disease; N18.9 Chronic kidney disease, unspecified; I50.9 Heart failure, unspecified; E11.65 Type 2 diabetes mellitus with hyperglycemia; G89.4 Chronic pain syndrome; E11.40 Type 2 diabetes mellitus with diabetic neuropathy, unspecified; I25.10 Atherosclerotic heart disease of native coronary artery without angina pectoris; E03.9 Hypothyroidism, unspecified; E86.0 Dehydration; B96.20 Unspecified Escherichia coli [E. coli] as the cause of diseases classified elsewhere; Z79.01 Long term (current) use of anticoagulants; Z79.899 Other long term (current) drug therapy; Z79.82 Long term (current) use of aspirin; Z86.718 Personal history of other venous thrombosis and embolism; Z95.5 Presence of coronary angioplasty implant and graft
CPT/HCPCS: 36415; 36600; 71010; 80048; 80053; 80061; 81000-TC; 82150-TC; 82803-TC; 82962; 83036; 83605; 83690-TC; 83735-TC; 83880; 84100-TC; 84436; 84439; 84443-TC; 84479; 84484; 85007; 85025; 85027; 85610-TC; 85730-TC; 87040-TC; 87070-TC; 87081; 87086; 87186-TC; 87205-TC; 93005; 93306; 94002; 94003; 94640; 94660; 94760; 96361; 96374; 97116-GP; 97530-GP; 99285; C1751; J0330; J0696; J1030; J1580; J1644; J1815; J1940; J2270; J2405; J2543; J2704; J3370; J3480; J3490; J7030; J7042; J7050; J7060

== ENCOUNTER 2017-05-23 15:53 | Inpatient (IN) | payer BC ==
[~2017-05-23] VITALS: Ht 160 cm; Wt 59.9 kg
[~2017-05-23 15:53] MED LIST changes: +ALBU8.5H8 INH; +ASPI-1063 PO; -FURO-150 PO; +FURO20TA4 PO; +INSU100V9 SUBCUT; +LOSA25TA3 PO; +MULT-1164 PO; +RALO60TA PO
[2017-05-23 16:06] VITALS: BP_SYST 102
[2017-05-23] MEDS ORDERED: ACETAMINOPHEN 325 MG TABLET PO ONE (16:45)
[2017-05-23 17:02] LABS: HEMATOCRIT 33.8 % (36-48); HEMOGLOBIN 11.3 g/dL (12.0-16.0); MEAN CORPUSCULAR HEMOGLOBIN 31 pg (27-31); MEAN CORPUSCULAR HGB CONC 33 % (32-36); MEAN CORPUSCULAR VOLUME 92 fL (79.0-98.0); PLATELET COUNT (AUTO) 288 K/uL (130-430); RED BLOOD CELL COUNT(AUTO) 3.67 MIL/uL (4.2-6.2); RED CELL DISTRIBUTION WIDTH 13.4 % (9.0-15.0)
[2017-05-23 17:12] LABS: ANION GAP 11 (5-15); CALCIUM 8.7 mg/dL (8.4-11.0); CHLORIDE 98 mmol/L (98-107); CREATININE 1.96 mg/dL (0.55-1.30); GLUCOSE 108 mg/dL (70-99); POTASSIUM 4.5 mmol/L (3.5-5.1); SODIUM SERUM 128 mmol/L (136-145); UREA NITROGEN, BLOOD 31 mg/dL (8-21)
[2017-05-23 17:16] LABS: PROTHROMBIN TIME 10.8 SECS (9.5-12.5); WHITE BLOOD COUNT (AUTO) 34.5 K/uL (4.8-10.8)
[2017-05-23] MEDS ORDERED: INSU100V11 SQ (17:16)
[2017-05-23] MEDS ORDERED: SIMV20TA2 PO (17:16)
[2017-05-23] MEDS ORDERED: SSREG SUBCUT (17:16)
[2017-05-23] MEDS ORDERED: METO25TA6 PO (17:16)
[2017-05-23] MEDS ORDERED: [UNRECOGNIZED DRUG - OTHER] PO (17:16)
[2017-05-23] MEDS ORDERED: LEVA1.25 INH (17:16)
[2017-05-23] MEDS ORDERED: ACET-2165 PO (17:16)
[2017-05-23 17:17] LABS: ALANINE AMINOTRANSFERASE 15 U/L (12-78); ALBUMIN 2.6 g/dL (3.4-4.8); ASPARTATE AMINOTRANSFERASE 15 U/L (10-37); TOTAL BILIRUBIN 0.7 mg/dL (0.0-1.0)
[2017-05-23 17:23] LABS: ALCOHOL, BLOOD < 3 mg/dL (<10)
[2017-05-23] MEDS ORDERED: PIPERACILLIN/TAZO 3.375 GM in NS 50 ML IV ONE (17:30)
[2017-05-23] MEDS ORDERED: PIPERACILLIN/TAZOBACTAM 3.375 GM/VIAL (ZOSYN) IV ONE (17:36)
[2017-05-23 17:40] LABS: FREE T4 (FREE THYROXINE) 1.3 ng/dL (0.6-1.6)
[2017-05-23 17:40] LABS: BILIRUBIN,URINE NEGATIVE (NEGATIVE); BLOOD, URINE 2+ (NEGATIVE); CLARITY/URINE SL CLOUDY (CLEAR); COLOR,URINE YELLOW (YELLOW); GLUCOSE,URINE NEGATIVE (NEGATIVE); KETONES,URINE NEGATIVE (NEGATIVE); LEUKOCYTE ESTERASE ,URINE 3+ (NEGATIVE); NITRITE, URINE POSITIVE (NEGATIVE); PROTEIN URINE 2+ (NEGATIVE); UROBILINOGEN,URINE 0.2 (0.2-1.0)
[2017-05-23 17:49] LABS: ATYPICAL LYMPHOCYTES % 4 % (0-0); BAND % (MANUAL) 24 % (0-6); BASOPHILS % (MANUAL) 0 % (0-2); EOSINOPHILS % (MANUAL) 0 % (0-7); LYMPHOCYTES % (MANUAL) 6 % (20-46); METAMYELOCYTES % 1 % (0-0); MONOCYTES % (MANUAL) 1 % (0-11)
[2017-05-23 17:51] LABS: BARBITURATE, URINE NEGATIVE (NEG <=200); BENZODIAZEPINE, URINE NEGATIVE (NEG <=150); CANNABINOID, URINE NEGATIVE (NEG <=50); COCAINE, URINE NEGATIVE (NEG <=150); METHAMPHETAMINES SCREEN,URINE NEGATIVE (NEG <=500); OPIATE, URINE NEGATIVE (NEG <=100); PHENCYCLIDINE SCREEN,URINE NEGATIVE (NEG <=25); UR TRICYCLIC ANTIDEPRESSANTS NEGATIVE (NEG <=300); URINE AMPHETAMINE NEGATIVE (NEG <=500); URINE METHADONE NEGATIVE (NEG <=200); URINE OXYCODONE SCREEN NEGATIVE (NEG <=100); URINE PROPOXYPHENE SCREEN NEGATIVE (NEG <=300)
[2017-05-23 18:05] LABS: BACTERIA,URINE MANY /HPF (None Seen); WBC,URINE >100 /HPF (0-3)
[2017-05-23 18:58] VITALS: BP_SYST 106
[2017-05-23] MEDS ORDERED: ACETAMINOPHEN 325 MG TABLET PO PRN ×2 (19:30→19:45)
[2017-05-23] MEDS ORDERED: NACL 0.9% 1,000 ML IV SCH (19:30)
[2017-05-23] MEDS: GLIMEPIRIDE 2 MG TABLET PO SCH (21:00)
[2017-05-23] MEDS ORDERED: [UNRECOGNIZED DRUG - OTHER] PO SCH (21:00)
[2017-05-23] MEDS: GABAPENTIN 300 MG CAPSULE PO SCH (21:08)
[2017-05-23] MEDS: FERROUS SULFATE 325 MG TABLET.DR PO SCH (21:09)
[2017-05-23] MEDS: APIXABAN 2.5 MG TABLET PO SCH (21:09)
[2017-05-23] MEDS: SIMVASTATIN 20 MG TABLET PO SCH (21:12)
[2017-05-23] MEDS ORDERED: metroNIDAZOLE 500 mg/NS 200 ML IV ONE (21:24)
[2017-05-23] MEDS ORDERED: PIPERACILLIN/TAZOBACTAM 2.25 GM VIAL IV ONE (21:25)
[2017-05-23] MEDS: OXYBUTYNIN CHLORIDE 5 MG TABLET PO SCH (21:41)
[2017-05-23] MEDS: metroNIDAZOLE 500 mg/NS 100 ML IV SCH (21:43)
[2017-05-23] MEDS ORDERED: DEXTROSE 50% JECT 50 ML DISP.SYRIN IVP PRN ×2 (22:00)
[2017-05-23] MEDS ORDERED: GLUCOSE 15 GM GEL (in 37.5 GM TUBE) PO PRN ×2 (22:00)
[2017-05-23] MEDS: D5NS 1,000 ML IV SCH (22:18)
[2017-05-24] VITALS (8 sets, daily range): BP systolic 66–111
[2017-05-24] MEDS: PIPERACILLIN/TAZO 2.25G/DEX-IS 50 ML IV SCH ×2 (00:20→05:33)
[2017-05-24] MEDS: traMADol HCL HCL 50 MG TABLET (ULTRAM) PO PRN (03:19)
[2017-05-24] MEDS: LEVOTHYROXINE SODIUM 0.075 MG TABLET PO SCH (06:26)
[2017-05-24] MEDS: metroNIDAZOLE 500 mg/NS 100 ML IV SCH ×3 (06:27→22:11)
[2017-05-24] MEDS: INSULIN REGULAR, HUMAN 100 UNITS/ML, 10 ML VIAL (novoLIN R) SUBCUT PRN ×4 (06:28→22:09)
[2017-05-24 07:56] LABS: BASOPHILS % (AUTO) 0.1 % (0.0-2.0); LYMPHOCYTES # (AUTO) 0.9 K/uL (1.0-5.5)
[2017-05-24 08:12] LABS: EOSINOPHILS # (AUTO) 0.2 K/uL (0.0-0.4); EOSINOPHILS % (AUTO) 0.6 % (0.0-4.0); HEMATOCRIT 30.7 % (36-48); HEMOGLOBIN 10.5 g/dL (12.0-16.0); LYMPHOCYTES % (AUTO) 2.1 % (20.5-51.5); MEAN CORPUSCULAR HEMOGLOBIN 32 pg (27-31); MEAN CORPUSCULAR HGB CONC 34 % (32-36); MEAN CORPUSCULAR VOLUME 92 fL (79.0-98.0); MONOCYTES # (AUTO) 1.8 K/uL (0.0-1.0); MONOCYTES % (AUTO) 4.5 % (1.7-9.3); NEUTROPHILS # (AUTO) 37.9 K/uL (1.8-7.7); NEUTROPHILS % (AUTO) 92.7 % (40.0-70.0); PLATELET COUNT (AUTO) 275 K/uL (130-430); RED BLOOD CELL COUNT(AUTO) 3.33 MIL/uL (4.2-6.2); RED CELL DISTRIBUTION WIDTH 13.5 % (9.0-15.0)
[2017-05-24 08:19] LABS: WHITE BLOOD COUNT (AUTO) 40.8 K/uL (4.8-10.8)
[2017-05-24 08:34] LABS: CHLORIDE 99 mmol/L (98-107); POTASSIUM 4.5 mmol/L (3.5-5.1); SODIUM SERUM 130 mmol/L (136-145)
[2017-05-24 08:35] LABS: ALANINE AMINOTRANSFERASE 11 U/L (12-78); ANION GAP 12 (5-15); ASPARTATE AMINOTRANSFERASE 11 U/L (10-37); CALCIUM 7.9 mg/dL (8.4-11.0); GLUCOSE 244 mg/dL (70-99); UREA NITROGEN, BLOOD 36 mg/dL (8-21)
[2017-05-24 08:36] LABS: ALBUMIN 2.1 g/dL (3.4-4.8); CHOLESTEROL 62 mg/dL (<200); HDL CHOLESTEROL 45 mg/dL (>55); LDL CHOLESTEROL 16 mg/dL (<100); TRIGLYCERIDES 72 mg/dL (30-150)
[2017-05-24] MEDS ORDERED: SOLIFENACIN SUCCINATE 5 MG TABLET PO SCH (09:00)
[2017-05-24] MEDS: OXYBUTYNIN CHLORIDE 5 MG TABLET PO SCH ×2 (09:07→21:55)
[2017-05-24] MEDS: APIXABAN 2.5 MG TABLET PO SCH ×2 (09:07→21:54)
[2017-05-24] MEDS: GLIMEPIRIDE 2 MG TABLET PO SCH ×2 (09:07→21:55)
[2017-05-24] MEDS: FAMOTIDINE 20 MG TABLET PO SCH (09:08)
[2017-05-24] MEDS: GABAPENTIN 300 MG CAPSULE PO SCH ×2 (09:08→22:03)
[2017-05-24] MEDS: LOSARTAN POTASSIUM 25 MG TABLET PO SCH (09:08)
[2017-05-24] MEDS: METOPROLOL TARTRATE 25 MG TABLET PO SCH (09:09)
[2017-05-24] MEDS: ASPIRIN 81 MG TABLET(ECOTRIN) PO SCH (09:09)
[2017-05-24] MEDS: POTASSIUM CHLORIDE 20 MEQ TAB.PRT.SR PO SCH (09:10)
[2017-05-24] MEDS: FERROUS SULFATE 325 MG TABLET.DR PO SCH ×2 (09:10→21:54)
[2017-05-24] MEDS: FUROSEMIDE 20 MG TABLET PO SCH (09:10)
[2017-05-24] MEDS: MULTIVITS,CA,MINERALS/IRON/FA 1 TABLET PO SCH (09:11)
[2017-05-24] MEDS: RALOXIFENE HCL 60 MG TABLET (EVISTA) PO SCH (09:11)
[2017-05-24] MEDS: VANCOMYCIN HCL 250 MG CAPSULE PO SCH ×3 (10:19→21:55)
[2017-05-24] MEDS: D5NS 1,000 ML IV SCH (18:33)
[2017-05-24] MEDS: SIMVASTATIN 20 MG TABLET PO SCH (21:55)
[2017-05-24] MEDS ORDERED: NACL 0.9% 1,000 ML IV ONE (23:15)
[2017-05-24] MEDS ORDERED: NOREPINEPHRINE 4 MG/4 ML VIAL IV ONE (23:58)
[2017-05-25] VITALS (24 sets, daily range): BP systolic 81–133
[2017-05-25] MEDS: NOREPINEPHRINE BITARTRATE 4 MG in NS 246 ML IV PRN ×3 (01:13→22:52)
[2017-05-25] MEDS: D5NS 1,000 ML IV SCH ×3 (05:20→20:15)
[2017-05-25] MEDS: metroNIDAZOLE 500 mg/NS 100 ML IV SCH ×3 (05:20→21:26)
[2017-05-25] MEDS: INSULIN REGULAR, HUMAN 100 UNITS/ML, 10 ML VIAL (novoLIN R) SUBCUT PRN ×4 (05:27→20:32)
[2017-05-25 06:48] LABS: HEMATOCRIT 30.2 % (36-48); HEMOGLOBIN 10.2 g/dL (12.0-16.0); MEAN CORPUSCULAR HEMOGLOBIN 31 pg (27-31); MEAN CORPUSCULAR HGB CONC 34 % (32-36); MEAN CORPUSCULAR VOLUME 92 fL (79.0-98.0); PLATELET COUNT (AUTO) 277 K/uL (130-430); RED BLOOD CELL COUNT(AUTO) 3.27 MIL/uL (4.2-6.2); RED CELL DISTRIBUTION WIDTH 13.3 % (9.0-15.0)
[2017-05-25 06:57] LABS: ALANINE AMINOTRANSFERASE 11 U/L (12-78); ALBUMIN 1.9 g/dL (3.4-4.8); ANION GAP 12 (5-15); ASPARTATE AMINOTRANSFERASE 10 U/L (10-37); CALCIUM 7.5 mg/dL (8.4-11.0); CHLORIDE 100 mmol/L (98-107); GLUCOSE 170 mg/dL (70-99); POTASSIUM 3.8 mmol/L (3.5-5.1); SODIUM SERUM 129 mmol/L (136-145); TOTAL BILIRUBIN 0.6 mg/dL (0.0-1.0); UREA NITROGEN, BLOOD 42 mg/dL (8-21)
[2017-05-25] MEDS: LEVOTHYROXINE SODIUM 0.075 MG TABLET PO SCH (07:00)
[2017-05-25 07:17] LABS: CREATININE 2.72 mg/dL (0.55-1.30)
[2017-05-25 07:33] LABS: WHITE BLOOD COUNT (AUTO) 38.4 K/uL (4.8-10.8)
[2017-05-25] MEDS: RALOXIFENE HCL 60 MG TABLET (EVISTA) PO SCH (08:48)
[2017-05-25] MEDS: MULTIVITS,CA,MINERALS/IRON/FA 1 TABLET PO SCH (08:49)
[2017-05-25] MEDS: GABAPENTIN 300 MG CAPSULE PO SCH ×2 (08:49→20:16)
[2017-05-25] MEDS: FAMOTIDINE 20 MG TABLET PO SCH (08:49)
[2017-05-25] MEDS: APIXABAN 2.5 MG TABLET PO SCH ×2 (08:49→20:16)
[2017-05-25] MEDS: FERROUS SULFATE 325 MG TABLET.DR PO SCH ×2 (08:49→20:16)
[2017-05-25] MEDS: GLIMEPIRIDE 2 MG TABLET PO SCH ×2 (08:49→20:16)
[2017-05-25] MEDS: ASPIRIN 81 MG TABLET(ECOTRIN) PO SCH (08:49)
[2017-05-25] MEDS: VANCOMYCIN HCL 250 MG CAPSULE PO SCH ×3 (08:50→20:15)
[2017-05-25] MEDS: POTASSIUM CHLORIDE 20 MEQ TAB.PRT.SR PO SCH (08:50)
[2017-05-25] MEDS: LOSARTAN POTASSIUM 25 MG TABLET PO SCH (08:50)
[2017-05-25] MEDS: OXYBUTYNIN CHLORIDE 5 MG TABLET PO SCH ×2 (08:50→20:16)
[2017-05-25] MEDS: FUROSEMIDE 20 MG TABLET PO SCH (08:51)
[2017-05-25] MEDS: METOPROLOL TARTRATE 25 MG TABLET PO SCH (08:51)
[2017-05-25 09:35] LABS: BAND % (MANUAL) 12 % (0-6)
[2017-05-25 09:36] LABS: ATYPICAL LYMPHOCYTES % 0 % (0-0); BASOPHILS % (MANUAL) 0 % (0-2); EOSINOPHILS % (MANUAL) 0 % (0-7); LYMPHOCYTES % (MANUAL) 2 % (20-46); MONOCYTES % (MANUAL) 3 % (0-11)
[2017-05-25] MEDS ORDERED: NOREPINEPHRINE 4 MG/4 ML VIAL IV ONE ×2 (09:52→23:10)
[2017-05-25] MEDS ORDERED: NEPHROVITE, (FOLIC ACID/VITAMIN B COMP W-C 1 TAB) PO ONE (16:45)
[2017-05-25] MEDS: SIMVASTATIN 20 MG TABLET PO SCH (20:16)
[2017-05-26] VITALS (25 sets, daily range): BP systolic 88–132
[2017-05-26] MEDS: metroNIDAZOLE 500 mg/NS 100 ML IV SCH ×3 (06:02→21:55)
[2017-05-26] MEDS: LEVOTHYROXINE SODIUM 0.075 MG TABLET PO SCH (06:04)
[2017-05-26] MEDS: NOREPINEPHRINE BITARTRATE 4 MG in NS 246 ML IV PRN ×2 (06:04→14:39)
[2017-05-26] MEDS: INSULIN REGULAR, HUMAN 100 UNITS/ML, 10 ML VIAL (novoLIN R) SUBCUT PRN ×4 (06:13→21:04)
[2017-05-26 07:53] LABS: INR 1.3 (0.8-1.2); PROTHROMBIN TIME 13.7 SECS (9.5-12.5)
[2017-05-26] MEDS: LOSARTAN POTASSIUM 25 MG TABLET PO SCH (09:00)
[2017-05-26] MEDS: MULTIVITS,CA,MINERALS/IRON/FA 1 TABLET PO SCH (09:19)
[2017-05-26] MEDS: RALOXIFENE HCL 60 MG TABLET (EVISTA) PO SCH (09:19)
[2017-05-26] MEDS: VANCOMYCIN HCL 250 MG CAPSULE PO SCH ×3 (09:19→20:53)
[2017-05-26] MEDS: GABAPENTIN 300 MG CAPSULE PO SCH ×2 (09:20→20:53)
[2017-05-26] MEDS: POTASSIUM CHLORIDE 20 MEQ TAB.PRT.SR PO SCH (09:20)
[2017-05-26] MEDS: NEPHROVITE, (FOLIC ACID/VITAMIN B COMP W-C 1 TAB) PO SCH (09:20)
[2017-05-26] MEDS: FERROUS SULFATE 325 MG TABLET.DR PO SCH ×2 (09:20→20:53)
[2017-05-26] MEDS: GLIMEPIRIDE 2 MG TABLET PO SCH ×2 (09:20→20:53)
[2017-05-26] MEDS: ASPIRIN 81 MG TABLET(ECOTRIN) PO SCH (09:21)
[2017-05-26] MEDS: OXYBUTYNIN CHLORIDE 5 MG TABLET PO SCH ×2 (09:21→20:53)
[2017-05-26] MEDS: FAMOTIDINE 20 MG TABLET PO SCH (09:21)
[2017-05-26] MEDS: APIXABAN 2.5 MG TABLET PO SCH ×2 (09:21→20:53)
[2017-05-26] MEDS: FUROSEMIDE 20 MG TABLET PO SCH (09:22)
[2017-05-26] MEDS: METOPROLOL TARTRATE 25 MG TABLET PO SCH (09:25)
[2017-05-26] MEDS: D5NS 1,000 ML IV SCH (09:50)
[2017-05-26 13:11] LABS: ANION GAP 11 (5-15); CALCIUM 7.5 mg/dL (8.4-11.0); CHLORIDE 107 mmol/L (98-107); CREATININE 1.92 mg/dL (0.55-1.30); GLUCOSE 171 mg/dL (70-99); POTASSIUM 3.5 mmol/L (3.5-5.1); SODIUM SERUM 132 mmol/L (136-145); UREA NITROGEN, BLOOD 37 mg/dL (8-21)
[2017-05-26 13:15] LABS: MEAN CORPUSCULAR HEMOGLOBIN 31 pg (27-31)
[2017-05-26 13:17] LABS: HEMATOCRIT 31.1 % (36-48); HEMOGLOBIN 10.4 g/dL (12.0-16.0); MEAN CORPUSCULAR HGB CONC 33 % (32-36); MEAN CORPUSCULAR VOLUME 91 fL (79.0-98.0)
[2017-05-26 13:18] LABS: PLATELET COUNT (AUTO) 273 K/uL (130-430); RED CELL DISTRIBUTION WIDTH 13.6 % (9.0-15.0); WHITE BLOOD COUNT (AUTO) 23.3 K/uL (4.8-10.8)
[2017-05-26 14:01] LABS: ATYPICAL LYMPHOCYTES % 0 % (0-0); BAND % (MANUAL) 15 % (0-6); BASOPHILS % (MANUAL) 0 % (0-2); EOSINOPHILS % (MANUAL) 1 % (0-7); LYMPHOCYTES % (MANUAL) 2 % (20-46); MONOCYTES % (MANUAL) 3 % (0-11)
[2017-05-26] MEDS ORDERED: LOPERAMIDE HCL 2 MG CAPSULE PO PRN (19:15)
[2017-05-26] MEDS: SIMVASTATIN 20 MG TABLET PO SCH (20:53)
[2017-05-27] VITALS (24 sets, daily range): BP systolic 87–139
[2017-05-27] MEDS: D5NS 1,000 ML IV SCH ×2 (00:10→11:32)
[2017-05-27] MEDS: NOREPINEPHRINE BITARTRATE 4 MG in NS 246 ML IV PRN (02:21)
[2017-05-27] MEDS: traMADol HCL HCL 50 MG TABLET (ULTRAM) PO PRN (02:38)
[2017-05-27] MEDS: metroNIDAZOLE 500 mg/NS 100 ML IV SCH ×3 (05:29→21:51)
[2017-05-27] MEDS: INSULIN REGULAR, HUMAN 100 UNITS/ML, 10 ML VIAL (novoLIN R) SUBCUT PRN (06:20)
[2017-05-27] MEDS: LEVOTHYROXINE SODIUM 0.075 MG TABLET PO SCH (06:21)
[2017-05-27 06:39] LABS: BASOPHILS # (AUTO) 0.1 K/uL (0.0-0.2); BASOPHILS % (AUTO) 0.8 % (0.0-2.0); EOSINOPHILS # (AUTO) 0.2 K/uL (0.0-0.4); EOSINOPHILS % (AUTO) 1.4 % (0.0-4.0); HEMATOCRIT 29.8 % (36-48); HEMOGLOBIN 9.7 g/dL (12.0-16.0); LYMPHOCYTES # (AUTO) 0.6 K/uL (1.0-5.5); LYMPHOCYTES % (AUTO) 3.7 % (20.5-51.5); MEAN CORPUSCULAR HEMOGLOBIN 30 pg (27-31); MEAN CORPUSCULAR HGB CONC 33 % (32-36); MEAN CORPUSCULAR VOLUME 92 fL (79.0-98.0); MONOCYTES # (AUTO) 0.3 K/uL (0.0-1.0); MONOCYTES % (AUTO) 2.2 % (1.7-9.3); NEUTROPHILS # (AUTO) 14.5 K/uL (1.8-7.7); NEUTROPHILS % (AUTO) 91.9 % (40.0-70.0); PLATELET COUNT (AUTO) 277 K/uL (130-430); RED BLOOD CELL COUNT(AUTO) 3.24 MIL/uL (4.2-6.2); RED CELL DISTRIBUTION WIDTH 13.4 % (9.0-15.0)
[2017-05-27 06:56] LABS: ANION GAP 12 (5-15); CALCIUM 7.5 mg/dL (8.4-11.0); CHLORIDE 108 mmol/L (98-107); GLUCOSE 95 mg/dL (70-99); POTASSIUM 3.1 mmol/L (3.5-5.1); SODIUM SERUM 134 mmol/L (136-145); UREA NITROGEN, BLOOD 28 mg/dL (8-21)
[2017-05-27 07:01] LABS: WHITE BLOOD COUNT (AUTO) 15.7 K/uL (4.8-10.8)
[2017-05-27] MEDS: MULTIVITS,CA,MINERALS/IRON/FA 1 TABLET PO SCH (08:24)
[2017-05-27] MEDS: APIXABAN 2.5 MG TABLET PO SCH ×2 (08:24→21:49)
[2017-05-27] MEDS: FAMOTIDINE 20 MG TABLET PO SCH (08:24)
[2017-05-27] MEDS: OXYBUTYNIN CHLORIDE 5 MG TABLET PO SCH ×2 (08:25→21:50)
[2017-05-27] MEDS: NEPHROVITE, (FOLIC ACID/VITAMIN B COMP W-C 1 TAB) PO SCH (08:25)
[2017-05-27] MEDS: GLIMEPIRIDE 2 MG TABLET PO SCH (08:25)
[2017-05-27] MEDS: VANCOMYCIN HCL 250 MG CAPSULE PO SCH ×3 (08:25→21:49)
[2017-05-27] MEDS: FERROUS SULFATE 325 MG TABLET.DR PO SCH ×2 (08:25→21:50)
[2017-05-27] MEDS: ASPIRIN 81 MG TABLET(ECOTRIN) PO SCH (08:25)
[2017-05-27] MEDS: POTASSIUM CHLORIDE 20 MEQ TAB.PRT.SR PO SCH (08:25)
[2017-05-27] MEDS: GABAPENTIN 300 MG CAPSULE PO SCH ×2 (08:25→21:49)
[2017-05-27] MEDS: RALOXIFENE HCL 60 MG TABLET (EVISTA) PO SCH (08:26)
[2017-05-27] MEDS: METOPROLOL TARTRATE 25 MG TABLET PO SCH (08:26)
[2017-05-27] MEDS: FUROSEMIDE 20 MG TABLET PO SCH (08:27)
[2017-05-27] MEDS: LOSARTAN POTASSIUM 25 MG TABLET PO SCH (08:27)
[2017-05-27] MEDS ORDERED: QUEtiapine FUMARATE 25 MG TABLET PO SCH (09:00)
[2017-05-27] MEDS ORDERED: *TPN PER PHARMACY XX PRN (14:00)
[2017-05-27] MEDS ORDERED: KCL 40 mEq in 100 mL (PREMIX) 100 ML IV ONE (14:00)
[2017-05-27] MEDS ORDERED: DEXTROSE 50% JECT 50 ML DISP.SYRIN IVP PRN (14:00)
[2017-05-27] MEDS: D5LR 1,000 ML IV SCH (16:43)
[2017-05-27] MEDS: QUEtiapine FUMARATE 25 MG TABLET PO SCH (21:49)
[2017-05-27] MEDS: SIMVASTATIN 20 MG TABLET PO SCH (21:49)
[2017-05-28] VITALS (25 sets, daily range): BP systolic 83–126
[2017-05-28] MEDS: D5LR 1,000 ML IV SCH ×2 (02:27→12:53)
[2017-05-28] MEDS: LevALBUTEROL HCL 1.25 MG/0.5 ML *CONC.* VIAL.NEB (XOPENEX CONC.) INH SCH ×5 (02:41→20:48)
[2017-05-28] MEDS ORDERED: COMMUNICATION ORDER XX ONE (04:30)
[2017-05-28] MEDS: metroNIDAZOLE 500 mg/NS 100 ML IV SCH ×3 (06:16→23:18)
[2017-05-28 06:28] LABS: BASOPHILS % (AUTO) 0.1 % (0.0-2.0); EOSINOPHILS # (AUTO) 0.1 K/uL (0.0-0.4); EOSINOPHILS % (AUTO) 0.8 % (0.0-4.0); HEMATOCRIT 28.5 % (36-48); HEMOGLOBIN 9.5 g/dL (12.0-16.0); LYMPHOCYTES # (AUTO) 0.6 K/uL (1.0-5.5); LYMPHOCYTES % (AUTO) 4.9 % (20.5-51.5); MEAN CORPUSCULAR HEMOGLOBIN 31 pg (27-31); MEAN CORPUSCULAR HGB CONC 33 % (32-36); MEAN CORPUSCULAR VOLUME 91 fL (79.0-98.0); MONOCYTES # (AUTO) 0.2 K/uL (0.0-1.0); MONOCYTES % (AUTO) 1.9 % (1.7-9.3); NEUTROPHILS # (AUTO) 10.4 K/uL (1.8-7.7); NEUTROPHILS % (AUTO) 92.3 % (40.0-70.0); PLATELET COUNT (AUTO) 280 K/uL (130-430); RED BLOOD CELL COUNT(AUTO) 3.13 MIL/uL (4.2-6.2); RED CELL DISTRIBUTION WIDTH 13.7 % (9.0-15.0); WHITE BLOOD COUNT (AUTO) 11.3 K/uL (4.8-10.8)
[2017-05-28] MEDS: LEVOTHYROXINE SODIUM 0.075 MG TABLET PO SCH (06:29)
[2017-05-28 06:41] LABS: ALANINE AMINOTRANSFERASE 7 U/L (12-78); ALBUMIN 1.7 g/dL (3.4-4.8); ANION GAP 9 (5-15); ASPARTATE AMINOTRANSFERASE 15 U/L (10-37); CALCIUM 7.7 mg/dL (8.4-11.0); CHLORIDE 112 mmol/L (98-107); CREATININE 1.35 mg/dL (0.55-1.30); GLUCOSE 132 mg/dL (70-99); PHOSPHORUS 2.5 mg/dL (2.7-4.5); POTASSIUM 3.7 mmol/L (3.5-5.1); SODIUM SERUM 137 mmol/L (136-145); TOTAL BILIRUBIN 0.4 mg/dL (0.0-1.0); TRIGLYCERIDES 53 mg/dL (30-150); UREA NITROGEN, BLOOD 22 mg/dL (8-21)
[2017-05-28 06:55] LABS: TOTAL IRON BIND. CAPACITY 89 ug/dL (250-450)
[2017-05-28 07:01] LABS: FREE T4 (FREE THYROXINE) 1.3 ng/dl (0.8-1.5)
[2017-05-28] MEDS: NOREPINEPHRINE BITARTRATE 4 MG in NS 246 ML IV PRN ×2 (09:01→23:18)
[2017-05-28] MEDS: RALOXIFENE HCL 60 MG TABLET (EVISTA) PO SCH (09:01)
[2017-05-28] MEDS: LOSARTAN POTASSIUM 25 MG TABLET PO SCH (09:02)
[2017-05-28] MEDS: NEPHROVITE, (FOLIC ACID/VITAMIN B COMP W-C 1 TAB) PO SCH (09:02)
[2017-05-28] MEDS: MULTIVITS,CA,MINERALS/IRON/FA 1 TABLET PO SCH (09:02)
[2017-05-28] MEDS: FERROUS SULFATE 325 MG TABLET.DR PO SCH ×2 (09:02→23:35)
[2017-05-28] MEDS: FAMOTIDINE 20 MG TABLET PO SCH (09:03)
[2017-05-28] MEDS: METOPROLOL TARTRATE 25 MG TABLET PO SCH (09:03)
[2017-05-28] MEDS: POTASSIUM CHLORIDE 20 MEQ TAB.PRT.SR PO SCH (09:04)
[2017-05-28] MEDS: ASPIRIN 81 MG TABLET(ECOTRIN) PO SCH (09:04)
[2017-05-28] MEDS: APIXABAN 2.5 MG TABLET PO SCH (09:04)
[2017-05-28] MEDS: VANCOMYCIN HCL 250 MG CAPSULE PO SCH (09:04)
[2017-05-28] MEDS: FUROSEMIDE 20 MG TABLET PO SCH (09:04)
[2017-05-28] MEDS: GABAPENTIN 300 MG CAPSULE PO SCH ×2 (09:04→23:18)
[2017-05-28] MEDS: OXYBUTYNIN CHLORIDE 5 MG TABLET PO SCH ×2 (09:04→23:19)
[2017-05-28] MEDS: traMADol HCL HCL 50 MG TABLET (ULTRAM) PO PRN (09:20)
[2017-05-28] MEDS: MORPHINE 2 MG/ML INJ. SYRINGE IVP PRN ×3 (10:30→18:54)
[2017-05-28] MEDS: VANCOMYCIN HCL ORAL SOLUTION 250 MG/5 ML, 80 ML NG SCH ×3 (11:40→21:00)
[2017-05-28] MEDS: INSULIN REGULAR, HUMAN 100 UNITS/ML, 10 ML VIAL (novoLIN R) SUBCUT PRN ×2 (12:36→23:37)
[2017-05-28] MEDS ORDERED: EPOETIN ALFA 4,000 UNITS/ML VIAL SUBCUT ONE (13:00)
[2017-05-28] MEDS ORDERED: NAPH,MB-DB/K PH,MBDB 250 MG TAB PO ONE (13:30)
[2017-05-28] MEDS: ERGOCALCIFEROL 8000 UNITS/ML ORAL SOLUTION, 60 ML BOTTLE PO SCH (14:29)
[2017-05-28] MEDS ORDERED: D5LR 1,000 ML IV SCH (18:00)
[2017-05-28] MEDS: K PHOS IV SCH ×10 (18:46)
[2017-05-28] MEDS: [UNRECOGNIZED DRUG - OTHER] IV SCH ×10 (18:46)
[2017-05-28] MEDS: SODIUM ACETATE IV SCH ×10 (18:46)
[2017-05-28] MEDS: POTASSIUM ACETATE IV SCH ×10 (18:46)
[2017-05-28] MEDS: TPN CENTRAL IV SCH ×10 (18:46)
[2017-05-28] MEDS: FAT EMULSIONS 250 ML IV SCH (18:51)
[2017-05-28] MEDS: CALCIUM CARBONATE 500 MG/ TAB.CHEW PO SCH ×2 (18:52→23:18)
[2017-05-28] MEDS: NAPH,MB-DB/K PH,MBDB 250 MG TAB PO SCH ×2 (18:52→23:18)
[2017-05-28] MEDS ORDERED: ENOXAPARIN SODIUM 30 MG/0.3 ML SYRINGE SUBCUT SCH (21:00)
[2017-05-28] MEDS: QUEtiapine FUMARATE 25 MG TABLET PO SCH (23:18)
[2017-05-28] MEDS: SIMVASTATIN 20 MG TABLET PO SCH (23:36)
[2017-05-29] VITALS (23 sets, daily range): BP systolic 83–139
[2017-05-29] MEDS: LORazepam 2 MG/ML VIAL IVP PRN ×3 (00:19→21:02)
[2017-05-29] MEDS: MORPHINE 2 MG/ML INJ. SYRINGE IVP PRN (01:03)
[2017-05-29] MEDS: metroNIDAZOLE 500 mg/NS 100 ML IV SCH ×3 (05:40→22:25)
[2017-05-29] MEDS: LEVOTHYROXINE SODIUM 0.075 MG TABLET PO SCH (06:07)
[2017-05-29] MEDS: INSULIN REGULAR, HUMAN 100 UNITS/ML, 10 ML VIAL (novoLIN R) SUBCUT PRN ×4 (06:07→20:53)
[2017-05-29] MEDS: D5LR 1,000 ML IV SCH (06:08)
[2017-05-29] MEDS: LevALBUTEROL HCL 1.25 MG/0.5 ML *CONC.* VIAL.NEB (XOPENEX CONC.) INH SCH ×4 (07:45→23:55)
[2017-05-29] MEDS: NEPHROVITE, (FOLIC ACID/VITAMIN B COMP W-C 1 TAB) PO SCH (08:26)
[2017-05-29] MEDS: OXYBUTYNIN CHLORIDE 5 MG TABLET PO SCH ×2 (08:26→20:54)
[2017-05-29] MEDS: CALCIUM CARBONATE 500 MG/ TAB.CHEW PO SCH ×4 (08:26→20:56)
[2017-05-29] MEDS: POTASSIUM CHLORIDE 20 MEQ TAB.PRT.SR PO SCH (08:26)
[2017-05-29] MEDS: GABAPENTIN 300 MG CAPSULE PO SCH ×2 (08:27→20:54)
[2017-05-29] MEDS: FUROSEMIDE 20 MG TABLET PO SCH (08:27)
[2017-05-29] MEDS: MULTIVITS,CA,MINERALS/IRON/FA 1 TABLET PO SCH (08:27)
[2017-05-29] MEDS: FAMOTIDINE 20 MG TABLET PO SCH (08:27)
[2017-05-29] MEDS: FERROUS SULFATE 325 MG TABLET.DR PO SCH ×2 (08:27→20:55)
[2017-05-29] MEDS: NAPH,MB-DB/K PH,MBDB 250 MG TAB PO SCH ×4 (08:27→20:54)
[2017-05-29] MEDS: LOSARTAN POTASSIUM 25 MG TABLET PO SCH (08:28)
[2017-05-29] MEDS ORDERED: DILTIAZEM HCL 25 MG/5 ML VIAL ONE (09:29)
[2017-05-29] MEDS ORDERED: DILTIAZEM HCL 25 MG/5 ML VIAL IV ONE (09:30)
[2017-05-29] MEDS ORDERED: DIGOXIN 0.5 MG/2 ML AMP IVP ONE (09:30)
[2017-05-29] MEDS ORDERED: DILTIAZEM HCL 25 MG/5 ML VIAL IVP ONE (09:30)
[2017-05-29] MEDS ORDERED: MAGNESIUM SULFATE 50 ML IV ONE (09:30)
[2017-05-29] MEDS: RALOXIFENE HCL 60 MG TABLET (EVISTA) PO SCH (09:46)
[2017-05-29] MEDS: ERGOCALCIFEROL 8000 UNITS/ML ORAL SOLUTION, 60 ML BOTTLE PO SCH (09:47)
[2017-05-29] MEDS: METOPROLOL TARTRATE 25 MG TABLET PO SCH ×3 (09:55→17:33)
[2017-05-29 10:23] LABS: BASOPHILS % (AUTO) 0.1 % (0.0-2.0); EOSINOPHILS # (AUTO) 0.1 K/uL (0.0-0.4); EOSINOPHILS % (AUTO) 0.8 % (0.0-4.0); HEMATOCRIT 28.2 % (36-48); HEMOGLOBIN 9.4 g/dL (12.0-16.0); LYMPHOCYTES # (AUTO) 0.5 K/uL (1.0-5.5); LYMPHOCYTES % (AUTO) 4.3 % (20.5-51.5); MEAN CORPUSCULAR HEMOGLOBIN 31 pg (27-31); MEAN CORPUSCULAR HGB CONC 33 % (32-36); MEAN CORPUSCULAR VOLUME 92 fL (79.0-98.0); MONOCYTES # (AUTO) 0.6 K/uL (0.0-1.0); MONOCYTES % (AUTO) 5.5 % (1.7-9.3); NEUTROPHILS # (AUTO) 10.3 K/uL (1.8-7.7); NEUTROPHILS % (AUTO) 89.3 % (40.0-70.0); PLATELET COUNT (AUTO) 307 K/uL (130-430); RED BLOOD CELL COUNT(AUTO) 3.05 MIL/uL (4.2-6.2); RED CELL DISTRIBUTION WIDTH 13.7 % (9.0-15.0); WHITE BLOOD COUNT (AUTO) 11.5 K/uL (4.8-10.8)
[2017-05-29] MEDS: VANCOMYCIN HCL ORAL SOLUTION 250 MG/5 ML, 80 ML NG SCH ×3 (10:24→20:56)
[2017-05-29 10:46] LABS: ANION GAP 10 (5-15); CALCIUM 7.4 mg/dL (8.4-11.0); CHLORIDE 110 mmol/L (98-107); CREATININE 1.38 mg/dL (0.55-1.30); GLUCOSE 287 mg/dL (70-99); LIPASE 154 U/L (73-393); PHOSPHORUS 3.1 mg/dL (2.7-4.5); POTASSIUM 3.9 mmol/L (3.5-5.1); SODIUM SERUM 138 mmol/L (136-145); UREA NITROGEN, BLOOD 18 mg/dL (8-21)
[2017-05-29] MEDS: APIXABAN 2.5 MG TABLET PO SCH ×2 (11:45→20:54)
[2017-05-29] MEDS ORDERED: D5W IV ONE ×5 (11:45→12:15)
[2017-05-29] MEDS ORDERED: AMIODARONE HCL IV ONE ×5 (11:45→12:15)
[2017-05-29] MEDS ORDERED: METOPROLOL TARTRATE 25 MG TABLET PO ONE (12:00)
[2017-05-29] MEDS ORDERED: APIXABAN 2.5 MG TABLET PO STA (12:19)
[2017-05-29] MEDS: NOREPINEPHRINE BITARTRATE 4 MG in NS 246 ML IV PRN (12:37)
[2017-05-29] MEDS: AMIODARONE HCL 900 MG in D5W 482 ML IV SCH (12:47)
[2017-05-29] MEDS ORDERED: FUROSEMIDE 20 MG/2 ML VIAL IVP ONE (14:45)
[2017-05-29] MEDS: K PHOS IV SCH ×10 (17:39)
[2017-05-29] MEDS: SODIUM ACETATE IV SCH ×10 (17:39)
[2017-05-29] MEDS: POTASSIUM ACETATE IV SCH ×10 (17:39)
[2017-05-29] MEDS: TPN CENTRAL IV SCH ×10 (17:39)
[2017-05-29] MEDS: [UNRECOGNIZED DRUG - OTHER] IV SCH ×10 (17:39)
[2017-05-29] MEDS: FAT EMULSIONS 250 ML IV SCH (17:41)
[2017-05-29] MEDS ORDERED: K PHOS IV SCH ×10 (18:00)
[2017-05-29] MEDS ORDERED: TPN CENTRAL IV SCH ×10 (18:00)
[2017-05-29] MEDS ORDERED: SODIUM ACETATE IV SCH ×10 (18:00)
[2017-05-29] MEDS ORDERED: [UNRECOGNIZED DRUG - OTHER] IV SCH ×10 (18:00)
[2017-05-29] MEDS ORDERED: POTASSIUM ACETATE IV SCH ×10 (18:00)
[2017-05-29] MEDS: QUEtiapine FUMARATE 25 MG TABLET PO SCH (20:54)
[2017-05-29] MEDS: SIMVASTATIN 20 MG TABLET PO SCH (20:54)
[2017-05-29] MEDS: LevALBUTEROL HCL 1.25 MG/0.5 ML *CONC.* VIAL.NEB (XOPENEX CONC.) INH PRN (21:38)
[2017-05-30] VITALS (23 sets, daily range): BP systolic 108–154
[2017-05-30] MEDS: LevALBUTEROL HCL 1.25 MG/0.5 ML *CONC.* VIAL.NEB (XOPENEX CONC.) INH SCH ×6 (03:32→23:57)
[2017-05-30] MEDS: METOPROLOL TARTRATE 25 MG TABLET PO SCH ×4 (06:00→17:32)
[2017-05-30] MEDS: metroNIDAZOLE 500 mg/NS 100 ML IV SCH ×3 (06:36→21:27)
[2017-05-30] MEDS: LEVOTHYROXINE SODIUM 0.075 MG TABLET PO SCH (06:36)
[2017-05-30 06:37] LABS: BASOPHILS % (AUTO) 0.1 % (0.0-2.0); EOSINOPHILS # (AUTO) 0.1 K/uL (0.0-0.4); EOSINOPHILS % (AUTO) 0.7 % (0.0-4.0); HEMATOCRIT 27.4 % (36-48); LYMPHOCYTES # (AUTO) 0.4 K/uL (1.0-5.5); LYMPHOCYTES % (AUTO) 3.9 % (20.5-51.5); MEAN CORPUSCULAR HEMOGLOBIN 31 pg (27-31); MEAN CORPUSCULAR HGB CONC 33 % (32-36); MEAN CORPUSCULAR VOLUME 93 fL (79.0-98.0); MONOCYTES # (AUTO) 0.4 K/uL (0.0-1.0); MONOCYTES % (AUTO) 3.4 % (1.7-9.3); NEUTROPHILS # (AUTO) 10.5 K/uL (1.8-7.7); NEUTROPHILS % (AUTO) 91.9 % (40.0-70.0); PLATELET COUNT (AUTO) 282 K/uL (130-430); RED BLOOD CELL COUNT(AUTO) 2.94 MIL/uL (4.2-6.2); RED CELL DISTRIBUTION WIDTH 13.5 % (9.0-15.0); WHITE BLOOD COUNT (AUTO) 11.4 K/uL (4.8-10.8)
[2017-05-30] MEDS: INSULIN REGULAR, HUMAN 100 UNITS/ML, 10 ML VIAL (novoLIN R) SUBCUT PRN ×4 (06:39→21:22)
[2017-05-30] MEDS: D5LR 1,000 ML IV SCH ×2 (06:40→13:44)
[2017-05-30 07:02] LABS: ALANINE AMINOTRANSFERASE 9 U/L (12-78); ALBUMIN 1.5 g/dL (3.4-4.8); ANION GAP 8 (5-15); ASPARTATE AMINOTRANSFERASE 13 U/L (10-37); BILIRUBIN,DIRECT 0.1 mg/dL (0.0-0.3); CALCIUM 7.7 mg/dL (8.4-11.0); CHLORIDE 110 mmol/L (98-107); CREATININE 1.27 mg/dL (0.55-1.30); GLUCOSE 280 mg/dL (70-99); PHOSPHORUS 4.2 mg/dL (2.7-4.5); POTASSIUM 3.8 mmol/L (3.5-5.1); SODIUM SERUM 137 mmol/L (136-145); TOTAL BILIRUBIN 0.3 mg/dL (0.0-1.0); UREA NITROGEN, BLOOD 21 mg/dL (8-21)
[2017-05-30] MEDS: FAMOTIDINE 20 MG TABLET PO SCH (09:44)
[2017-05-30] MEDS: GABAPENTIN 300 MG CAPSULE PO SCH ×2 (09:44→20:57)
[2017-05-30] MEDS: MULTIVITS,CA,MINERALS/IRON/FA 1 TABLET PO SCH (09:44)
[2017-05-30] MEDS: CALCIUM CARBONATE 500 MG/ TAB.CHEW PO SCH ×4 (09:44→20:57)
[2017-05-30] MEDS: NEPHROVITE, (FOLIC ACID/VITAMIN B COMP W-C 1 TAB) PO SCH (09:45)
[2017-05-30] MEDS: FERROUS SULFATE 325 MG TABLET.DR PO SCH ×2 (09:45→20:57)
[2017-05-30] MEDS: POTASSIUM CHLORIDE 20 MEQ TAB.PRT.SR PO SCH (09:45)
[2017-05-30] MEDS: NAPH,MB-DB/K PH,MBDB 250 MG TAB PO SCH ×4 (09:45→20:57)
[2017-05-30] MEDS: FUROSEMIDE 20 MG TABLET PO SCH (09:45)
[2017-05-30] MEDS: OXYBUTYNIN CHLORIDE 5 MG TABLET PO SCH ×2 (09:45→20:57)
[2017-05-30] MEDS: APIXABAN 2.5 MG TABLET PO SCH ×2 (09:46→20:57)
[2017-05-30] MEDS: ERGOCALCIFEROL 8000 UNITS/ML ORAL SOLUTION, 60 ML BOTTLE PO SCH (09:55)
[2017-05-30] MEDS: VANCOMYCIN HCL ORAL SOLUTION 250 MG/5 ML, 80 ML NG SCH ×3 (10:04→20:58)
[2017-05-30] MEDS ORDERED: LACTOBACILLUS RHAMNOSUS GG 1 CAP CAPSULE PO ONE (10:30)
[2017-05-30] MEDS: AMIODARONE HCL 900 MG in D5W 482 ML IV SCH (11:05)
[2017-05-30] MEDS: LOSARTAN POTASSIUM 25 MG TABLET PO SCH (12:09)
[2017-05-30] MEDS: MORPHINE 2 MG/ML INJ. SYRINGE IVP PRN (12:44)
[2017-05-30] MEDS: FAT EMULSIONS 250 ML IV SCH (16:50)
[2017-05-30] MEDS ORDERED: TPN CENTRAL IV SCH ×20 (17:00→18:00)
[2017-05-30] MEDS ORDERED: POTASSIUM ACETATE IV SCH ×20 (17:00→18:00)
[2017-05-30] MEDS ORDERED: SODIUM ACETATE IV SCH ×20 (17:00→18:00)
[2017-05-30] MEDS ORDERED: K PHOS IV SCH ×20 (17:00→18:00)
[2017-05-30] MEDS ORDERED: [UNRECOGNIZED DRUG - OTHER] IV SCH ×20 (17:00→18:00)
[2017-05-30] MEDS: LACTOBACILLUS RHAMNOSUS GG 1 CAP CAPSULE PO SCH (20:57)
[2017-05-30] MEDS: SIMVASTATIN 20 MG TABLET PO SCH (20:57)
[2017-05-30] MEDS: QUEtiapine FUMARATE 25 MG TABLET PO SCH (20:57)
[2017-05-30] MEDS: LevALBUTEROL HCL 1.25 MG/0.5 ML *CONC.* VIAL.NEB (XOPENEX CONC.) INH PRN (21:35)
[2017-05-31] VITALS (24 sets, daily range): BP systolic 85–145
[2017-05-31] MEDS: METOPROLOL TARTRATE 25 MG TABLET PO SCH ×2 (00:17→05:46)
[2017-05-31] MEDS: LevALBUTEROL HCL 1.25 MG/0.5 ML *CONC.* VIAL.NEB (XOPENEX CONC.) INH SCH ×6 (03:40→23:18)
[2017-05-31] MEDS: metroNIDAZOLE 500 mg/NS 100 ML IV SCH ×3 (05:45→22:28)
[2017-05-31] MEDS: D5LR 1,000 ML IV SCH (05:46)
[2017-05-31] MEDS: LEVOTHYROXINE SODIUM 0.075 MG TABLET PO SCH (06:45)
[2017-05-31] MEDS: INSULIN REGULAR, HUMAN 100 UNITS/ML, 10 ML VIAL (novoLIN R) SUBCUT PRN ×4 (06:49→22:25)
[2017-05-31 07:03] LABS: BASOPHILS % (AUTO) 0.2 % (0.0-2.0); EOSINOPHILS # (AUTO) 0.1 K/uL (0.0-0.4); EOSINOPHILS % (AUTO) 0.4 % (0.0-4.0); HEMATOCRIT 26.1 % (36-48); HEMOGLOBIN 8.6 g/dL (12.0-16.0); LYMPHOCYTES # (AUTO) 0.3 K/uL (1.0-5.5); LYMPHOCYTES % (AUTO) 2.3 % (20.5-51.5); MEAN CORPUSCULAR HEMOGLOBIN 31 pg (27-31); MEAN CORPUSCULAR HGB CONC 33 % (32-36); MEAN CORPUSCULAR VOLUME 92 fL (79.0-98.0); MONOCYTES # (AUTO) 0.5 K/uL (0.0-1.0); MONOCYTES % (AUTO) 3.9 % (1.7-9.3); NEUTROPHILS # (AUTO) 12.2 K/uL (1.8-7.7); NEUTROPHILS % (AUTO) 93.2 % (40.0-70.0); PLATELET COUNT (AUTO) 297 K/uL (130-430); RED BLOOD CELL COUNT(AUTO) 2.84 MIL/uL (4.2-6.2); RED CELL DISTRIBUTION WIDTH 13.9 % (9.0-15.0); WHITE BLOOD COUNT (AUTO) 13.1 K/uL (4.8-10.8)
[2017-05-31 07:20] LABS: ALANINE AMINOTRANSFERASE 9 U/L (12-78); ALBUMIN 1.5 g/dL (3.4-4.8); ANION GAP 6 (5-15); ASPARTATE AMINOTRANSFERASE 12 U/L (10-37); CALCIUM 7.6 mg/dL (8.4-11.0); CHLORIDE 105 mmol/L (98-107); CREATININE 1.28 mg/dL (0.55-1.30); GLUCOSE 396 mg/dL (70-99); POTASSIUM 3.7 mmol/L (3.5-5.1); SODIUM SERUM 134 mmol/L (136-145); TOTAL BILIRUBIN 0.3 mg/dL (0.0-1.0); UREA NITROGEN, BLOOD 24 mg/dL (8-21)
[2017-05-31] MEDS: VANCOMYCIN HCL ORAL SOLUTION 250 MG/5 ML, 80 ML NG SCH ×3 (08:16→21:12)
[2017-05-31] MEDS: POTASSIUM CHLORIDE 20 MEQ TAB.PRT.SR PO SCH (08:16)
[2017-05-31] MEDS: FAMOTIDINE 20 MG TABLET PO SCH (08:17)
[2017-05-31] MEDS: NAPH,MB-DB/K PH,MBDB 250 MG TAB PO SCH ×4 (08:17→21:13)
[2017-05-31] MEDS: LACTOBACILLUS RHAMNOSUS GG 1 CAP CAPSULE PO SCH ×2 (08:17→21:13)
[2017-05-31] MEDS: OXYBUTYNIN CHLORIDE 5 MG TABLET PO SCH (08:17)
[2017-05-31] MEDS: MULTIVITS,CA,MINERALS/IRON/FA 1 TABLET PO SCH (08:17)
[2017-05-31] MEDS: LOSARTAN POTASSIUM 25 MG TABLET PO SCH (08:18)
[2017-05-31] MEDS: GABAPENTIN 300 MG CAPSULE PO SCH (08:18)
[2017-05-31] MEDS: FERROUS SULFATE 325 MG TABLET.DR PO SCH ×2 (08:18→21:13)
[2017-05-31] MEDS: APIXABAN 2.5 MG TABLET PO SCH (08:18)
[2017-05-31] MEDS: NEPHROVITE, (FOLIC ACID/VITAMIN B COMP W-C 1 TAB) PO SCH (08:19)
[2017-05-31] MEDS: CALCIUM CARBONATE 500 MG/ TAB.CHEW PO SCH (08:19)
[2017-05-31] MEDS: FUROSEMIDE 20 MG TABLET PO SCH (08:19)
[2017-05-31] MEDS: ERGOCALCIFEROL 8000 UNITS/ML ORAL SOLUTION, 60 ML BOTTLE PO SCH (09:17)
[2017-05-31] MEDS ORDERED: FUROSEMIDE 20 MG/2 ML VIAL IVP ONE (10:45)
[2017-05-31] MEDS ORDERED: MIDAZOLAM HCL 5 MG/5 ML VIAL ONE (13:47)
[2017-05-31] MEDS ORDERED: NOREPINEPHRINE 4 MG/4 ML VIAL IV ONE (14:19)
[2017-05-31] MEDS: FAT EMULSIONS 250 ML IV SCH (17:37)
[2017-05-31] MEDS: TPN CENTRAL IV SCH ×11 (17:38)
[2017-05-31] MEDS: SODIUM ACETATE IV SCH ×11 (17:38)
[2017-05-31] MEDS: [UNRECOGNIZED DRUG - OTHER] IV SCH ×11 (17:38)
[2017-05-31] MEDS: SODIUM CHLORIDE IV SCH ×11 (17:38)
[2017-05-31] MEDS: AMIODARONE HCL 900 MG in D5W 482 ML IV SCH (18:49)
[2017-05-31] MEDS: ENOXAPARIN SODIUM 40 MG/0.4 ML SYRINGE SUBCUT SCH (21:14)
[2017-05-31] MEDS: MORPHINE 2 MG/ML INJ. SYRINGE IVP PRN (21:15)
[2017-05-31] MEDS ORDERED: FUROSEMIDE 40 MG/4 ML VIAL IVP ONE (21:15)
[2017-06-01] VITALS (29 sets, daily range): BP systolic 78–170
[2017-06-01] MEDS: LevALBUTEROL HCL 1.25 MG/0.5 ML *CONC.* VIAL.NEB (XOPENEX CONC.) INH SCH ×6 (03:53→23:55)
[2017-06-01] MEDS: LORazepam 2 MG/ML VIAL IVP PRN ×2 (04:39→21:23)
[2017-06-01] MEDS: metroNIDAZOLE 500 mg/NS 100 ML IV SCH ×3 (06:23→21:27)
[2017-06-01 06:40] LABS: EOSINOPHILS # (AUTO) 0.1 K/uL (0.0-0.4); EOSINOPHILS % (AUTO) 0.6 % (0.0-4.0); HEMATOCRIT 24.2 % (36-48); HEMOGLOBIN 8.2 g/dL (12.0-16.0); LYMPHOCYTES # (AUTO) 0.4 K/uL (1.0-5.5); LYMPHOCYTES % (AUTO) 2.5 % (20.5-51.5); MEAN CORPUSCULAR HEMOGLOBIN 31 pg (27-31); MEAN CORPUSCULAR HGB CONC 34 % (32-36); MEAN CORPUSCULAR VOLUME 92 fL (79.0-98.0); MONOCYTES # (AUTO) 0.8 K/uL (0.0-1.0); MONOCYTES % (AUTO) 5.2 % (1.7-9.3); NEUTROPHILS # (AUTO) 13.6 K/uL (1.8-7.7); NEUTROPHILS % (AUTO) 91.7 % (40.0-70.0); PLATELET COUNT (AUTO) 296 K/uL (130-430); RED BLOOD CELL COUNT(AUTO) 2.64 MIL/uL (4.2-6.2); RED CELL DISTRIBUTION WIDTH 13.5 % (9.0-15.0); WHITE BLOOD COUNT (AUTO) 14.9 K/uL (4.8-10.8)
[2017-06-01] MEDS: INSULIN REGULAR, HUMAN 100 UNITS/ML, 10 ML VIAL (novoLIN R) SUBCUT PRN ×4 (06:57→22:00)
[2017-06-01 07:01] LABS: ANION GAP 8 (5-15); CALCIUM 7.7 mg/dL (8.4-11.0); CHLORIDE 104 mmol/L (98-107); GLUCOSE 368 mg/dL (70-99); PHOSPHORUS 3.9 mg/dL (2.7-4.5); POTASSIUM 3.6 mmol/L (3.5-5.1); SODIUM SERUM 135 mmol/L (136-145); UREA NITROGEN, BLOOD 34 mg/dL (8-21)
[2017-06-01] MEDS: NEPHROVITE, (FOLIC ACID/VITAMIN B COMP W-C 1 TAB) PO SCH (08:23)
[2017-06-01] MEDS: NAPH,MB-DB/K PH,MBDB 250 MG TAB PO SCH ×4 (08:24→21:24)
[2017-06-01] MEDS: VANCOMYCIN HCL ORAL SOLUTION 250 MG/5 ML, 80 ML NG SCH ×3 (08:24→21:25)
[2017-06-01] MEDS: FAMOTIDINE PF 20 MG/2 ML VIAL IVP SCH (08:24)
[2017-06-01] MEDS: FERROUS SULFATE 325 MG TABLET.DR PO SCH ×2 (08:24→21:24)
[2017-06-01] MEDS: LEVOTHYROXINE SODIUM 0.1 MG VIAL IVP SCH (08:25)
[2017-06-01] MEDS: LACTOBACILLUS RHAMNOSUS GG 1 CAP CAPSULE PO SCH ×2 (08:26→21:24)
[2017-06-01] MEDS: ERGOCALCIFEROL 8000 UNITS/ML ORAL SOLUTION, 60 ML BOTTLE PO SCH (08:26)
[2017-06-01] MEDS: MORPHINE 2 MG/ML INJ. SYRINGE IVP PRN ×4 (08:52→23:05)
[2017-06-01] MEDS ORDERED: FUROSEMIDE 20 MG/2 ML VIAL IVP ONE (10:15)
[2017-06-01] MEDS ORDERED: VECURONIUM BROMIDE 10 MG/VIAL (NORCURON) IV ONE (10:51)
[2017-06-01] MEDS ORDERED: SUCCINYLCHOLINE CHLORIDE 20 MG/ML(QUELICIN) IVP ONE (10:51)
[2017-06-01] MEDS: FAT EMULSIONS 250 ML IV SCH (17:07)
[2017-06-01] MEDS: TPN CENTRAL IV SCH ×11 (17:08)
[2017-06-01] MEDS: [UNRECOGNIZED DRUG - OTHER] IV SCH ×11 (17:08)
[2017-06-01] MEDS: SODIUM CHLORIDE IV SCH ×11 (17:08)
[2017-06-01] MEDS: SODIUM ACETATE IV SCH ×11 (17:08)
[2017-06-01] MEDS: ENOXAPARIN SODIUM 40 MG/0.4 ML SYRINGE SUBCUT SCH (21:26)
[2017-06-01] MEDS ORDERED: VANCOMYCIN HCL 250 MG CAPSULE ONE (21:27)
[2017-06-02] VITALS (30 sets, daily range): BP systolic 102–189
[2017-06-02] MEDS: AMIODARONE HCL 900 MG in D5W 482 ML IV SCH ×2 (00:51→16:17)
[2017-06-02] MEDS: LevALBUTEROL HCL 1.25 MG/0.5 ML *CONC.* VIAL.NEB (XOPENEX CONC.) INH SCH ×6 (04:06→23:11)
[2017-06-02] MEDS: MORPHINE 2 MG/ML INJ. SYRINGE IVP PRN ×4 (05:10→22:25)
[2017-06-02] MEDS: LORazepam 2 MG/ML VIAL IVP PRN ×3 (05:59→22:32)
[2017-06-02] MEDS: metroNIDAZOLE 500 mg/NS 100 ML IV SCH ×3 (06:00→21:09)
[2017-06-02 06:39] LABS: BASOPHILS # (AUTO) 0.1 K/uL (0.0-0.2); BASOPHILS % (AUTO) 0.7 % (0.0-2.0); EOSINOPHILS % (AUTO) 0.1 % (0.0-4.0); HEMATOCRIT 26.5 % (36-48); MEAN CORPUSCULAR HEMOGLOBIN 31 pg (27-31); MEAN CORPUSCULAR HGB CONC 33 % (32-36); MEAN CORPUSCULAR VOLUME 93 fL (79.0-98.0); MONOCYTES # (AUTO) 0.5 K/uL (0.0-1.0); NEUTROPHILS % (AUTO) 93.9 % (40.0-70.0)
[2017-06-02] MEDS: INSULIN REGULAR, HUMAN 100 UNITS/ML, 10 ML VIAL (novoLIN R) SUBCUT PRN ×4 (06:49→20:55)
[2017-06-02 06:51] LABS: HEMOGLOBIN 8.8 g/dL (12.0-16.0); LYMPHOCYTES # (AUTO) 0.4 K/uL (1.0-5.5); LYMPHOCYTES % (AUTO) 2.5 % (20.5-51.5); MONOCYTES % (AUTO) 2.8 % (1.7-9.3); NEUTROPHILS # (AUTO) 16.9 K/uL (1.8-7.7); PLATELET COUNT (AUTO) 310 K/uL (130-430); RED BLOOD CELL COUNT(AUTO) 2.86 MIL/uL (4.2-6.2); RED CELL DISTRIBUTION WIDTH 13.7 % (9.0-15.0); WHITE BLOOD COUNT (AUTO) 17.9 K/uL (4.8-10.8)
[2017-06-02 07:07] LABS: ALANINE AMINOTRANSFERASE 10 U/L (12-78); ALBUMIN 1.6 g/dL (3.4-4.8); ANION GAP 9 (5-15); ASPARTATE AMINOTRANSFERASE 12 U/L (10-37); CHLORIDE 103 mmol/L (98-107); CREATININE 1.59 mg/dL (0.55-1.30); GLUCOSE 354 mg/dL (70-99); PHOSPHORUS 4.6 mg/dL (2.7-4.5); POTASSIUM 3.9 mmol/L (3.5-5.1); SODIUM SERUM 135 mmol/L (136-145); TOTAL BILIRUBIN 0.6 mg/dL (0.0-1.0); UREA NITROGEN, BLOOD 38 mg/dL (8-21)
[2017-06-02] MEDS: NEPHROVITE, (FOLIC ACID/VITAMIN B COMP W-C 1 TAB) PO SCH (09:11)
[2017-06-02] MEDS: FERROUS SULFATE 325 MG TABLET.DR PO SCH ×2 (09:11→20:44)
[2017-06-02] MEDS: ERGOCALCIFEROL 8000 UNITS/ML ORAL SOLUTION, 60 ML BOTTLE PO SCH (09:13)
[2017-06-02] MEDS: FAMOTIDINE PF 20 MG/2 ML VIAL IVP SCH (09:13)
[2017-06-02] MEDS: LEVOTHYROXINE SODIUM 0.1 MG VIAL IVP SCH (09:18)
[2017-06-02] MEDS: LACTOBACILLUS RHAMNOSUS GG 1 CAP CAPSULE PO SCH ×2 (09:22→20:44)
[2017-06-02] MEDS: NAPH,MB-DB/K PH,MBDB 250 MG TAB PO SCH ×4 (09:29→20:44)
[2017-06-02] MEDS: VANCOMYCIN HCL ORAL SOLUTION 250 MG/5 ML, 80 ML NG SCH ×3 (09:33→20:43)
[2017-06-02] MEDS ORDERED: FUROSEMIDE 40 MG/4 ML VIAL IVP ONE (09:45)
[2017-06-02] MEDS: FAT EMULSIONS 250 ML IV SCH (16:30)
[2017-06-02] MEDS: SODIUM ACETATE IV SCH ×11 (17:20)
[2017-06-02] MEDS: TPN CENTRAL IV SCH ×11 (17:20)
[2017-06-02] MEDS: [UNRECOGNIZED DRUG - OTHER] IV SCH ×11 (17:20)
[2017-06-02] MEDS: SODIUM CHLORIDE IV SCH ×11 (17:20)
[2017-06-02] MEDS ORDERED: MENTHOL/ZINC OXIDE 113 GM OINT. TP PRN (20:15)
[2017-06-02] MEDS: ENOXAPARIN SODIUM 40 MG/0.4 ML SYRINGE SUBCUT SCH (20:44)
[2017-06-02] MEDS: MENTHOL/ZINC OXIDE 113 GM OINT. TP SCH (21:14)
[2017-06-03] VITALS (32 sets, daily range): BP systolic 104–165
[2017-06-03] MEDS: MORPHINE 2 MG/ML INJ. SYRINGE IVP PRN (01:17)
[2017-06-03] MEDS: LORazepam 2 MG/ML VIAL IVP PRN ×2 (01:18→13:35)
[2017-06-03] MEDS: LevALBUTEROL HCL 1.25 MG/0.5 ML *CONC.* VIAL.NEB (XOPENEX CONC.) INH SCH ×6 (04:16→23:35)
[2017-06-03] MEDS: metroNIDAZOLE 500 mg/NS 100 ML IV SCH ×3 (05:30→22:36)
[2017-06-03] MEDS: INSULIN REGULAR, HUMAN 100 UNITS/ML, 10 ML VIAL (novoLIN R) SUBCUT PRN ×4 (06:22→22:58)
[2017-06-03 06:40] LABS: BASOPHILS % (AUTO) 0.1 % (0.0-2.0); EOSINOPHILS # (AUTO) 0.1 K/uL (0.0-0.4); EOSINOPHILS % (AUTO) 0.4 % (0.0-4.0); HEMATOCRIT 25.6 % (36-48); HEMOGLOBIN 8.5 g/dL (12.0-16.0); LYMPHOCYTES # (AUTO) 0.6 K/uL (1.0-5.5); LYMPHOCYTES % (AUTO) 4.4 % (20.5-51.5); MEAN CORPUSCULAR HEMOGLOBIN 31 pg (27-31); MEAN CORPUSCULAR HGB CONC 33 % (32-36); MEAN CORPUSCULAR VOLUME 93 fL (79.0-98.0); MONOCYTES # (AUTO) 0.8 K/uL (0.0-1.0); MONOCYTES % (AUTO) 5.6 % (1.7-9.3); NEUTROPHILS # (AUTO) 12.6 K/uL (1.8-7.7); NEUTROPHILS % (AUTO) 89.5 % (40.0-70.0); PLATELET COUNT (AUTO) 295 K/uL (130-430); RED BLOOD CELL COUNT(AUTO) 2.75 MIL/uL (4.2-6.2); WHITE BLOOD COUNT (AUTO) 14.1 K/uL (4.8-10.8)
[2017-06-03 06:57] LABS: ALANINE AMINOTRANSFERASE 7 U/L (12-78); ALBUMIN 1.5 g/dL (3.4-4.8); ANION GAP 9 (5-15); ASPARTATE AMINOTRANSFERASE 11 U/L (10-37); CALCIUM 7.8 mg/dL (8.4-11.0); CHLORIDE 105 mmol/L (98-107); CREATININE 1.41 mg/dL (0.55-1.30); GLUCOSE 296 mg/dL (70-99); POTASSIUM 3.6 mmol/L (3.5-5.1); SODIUM SERUM 136 mmol/L (136-145); TOTAL BILIRUBIN 0.7 mg/dL (0.0-1.0); UREA NITROGEN, BLOOD 39 mg/dL (8-21)
[2017-06-03] MEDS ORDERED: FUROSEMIDE 40 MG/4 ML VIAL IVP ONE (08:45)
[2017-06-03] MEDS: NEPHROVITE, (FOLIC ACID/VITAMIN B COMP W-C 1 TAB) PO SCH (09:22)
[2017-06-03] MEDS: FERROUS SULFATE 325 MG TABLET.DR PO SCH ×2 (09:23→22:37)
[2017-06-03] MEDS: NAPH,MB-DB/K PH,MBDB 250 MG TAB PO SCH ×4 (09:23→22:37)
[2017-06-03] MEDS: FAMOTIDINE PF 20 MG/2 ML VIAL IVP SCH (09:24)
[2017-06-03] MEDS: ERGOCALCIFEROL 8000 UNITS/ML ORAL SOLUTION, 60 ML BOTTLE PO SCH (09:24)
[2017-06-03] MEDS: VANCOMYCIN HCL ORAL SOLUTION 250 MG/5 ML, 80 ML NG SCH ×3 (09:24→22:42)
[2017-06-03] MEDS: LEVOTHYROXINE SODIUM 0.1 MG VIAL IVP SCH (09:24)
[2017-06-03] MEDS: MENTHOL/ZINC OXIDE 113 GM OINT. TP SCH ×4 (09:25→22:42)
[2017-06-03] MEDS: LACTOBACILLUS RHAMNOSUS GG 1 CAP CAPSULE PO SCH ×2 (09:26→22:37)
[2017-06-03] MEDS: FAT EMULSIONS 250 ML IV SCH (18:44)
[2017-06-03] MEDS: [UNRECOGNIZED DRUG - OTHER] IV SCH ×11 (18:45)
[2017-06-03] MEDS: SODIUM CHLORIDE IV SCH ×11 (18:45)
[2017-06-03] MEDS: TPN CENTRAL IV SCH ×11 (18:45)
[2017-06-03] MEDS: SODIUM ACETATE IV SCH ×11 (18:45)
[2017-06-03] MEDS ORDERED: AMIODARONE HCL 900 MG/18 ML VIAL IV ONE (22:29)
[2017-06-03] MEDS: ENOXAPARIN SODIUM 40 MG/0.4 ML SYRINGE SUBCUT SCH (22:36)
[2017-06-03] MEDS: AMIODARONE HCL 900 MG in D5W 482 ML IV SCH (22:36)
[2017-06-04] VITALS (34 sets, daily range): BP systolic 100–155
[2017-06-04] MEDS: LevALBUTEROL HCL 1.25 MG/0.5 ML *CONC.* VIAL.NEB (XOPENEX CONC.) INH SCH ×6 (03:53→23:54)
[2017-06-04] MEDS: metroNIDAZOLE 500 mg/NS 100 ML IV SCH ×3 (06:02→22:06)
[2017-06-04 06:37] LABS: HEMATOCRIT 23.9 % (36-48); HEMOGLOBIN 8.1 g/dL (12.0-16.0); MEAN CORPUSCULAR HEMOGLOBIN 31 pg (27-31); MEAN CORPUSCULAR HGB CONC 34 % (32-36); MEAN CORPUSCULAR VOLUME 92 fL (79.0-98.0); PLATELET COUNT (AUTO) 285 K/uL (130-430); RED BLOOD CELL COUNT(AUTO) 2.61 MIL/uL (4.2-6.2); RED CELL DISTRIBUTION WIDTH 14.1 % (9.0-15.0); WHITE BLOOD COUNT (AUTO) 15.5 K/uL (4.8-10.8)
[2017-06-04] MEDS: INSULIN REGULAR, HUMAN 100 UNITS/ML, 10 ML VIAL (novoLIN R) SUBCUT PRN ×4 (06:44→22:11)
[2017-06-04 07:03] LABS: ANION GAP 10 (5-15); CALCIUM 7.8 mg/dL (8.4-11.0); CHLORIDE 102 mmol/L (98-107); CREATININE 1.39 mg/dL (0.55-1.30); GLUCOSE 322 mg/dL (70-99); POTASSIUM 3.4 mmol/L (3.5-5.1); SODIUM SERUM 137 mmol/L (136-145); UREA NITROGEN, BLOOD 39 mg/dL (8-21)
[2017-06-04 07:25] LABS: ALBUMIN 1.5 g/dL (3.4-4.8); ASPARTATE AMINOTRANSFERASE 14 U/L (10-37); TOTAL BILIRUBIN 0.5 mg/dL (0.0-1.0)
[2017-06-04 07:55] LABS: ATYPICAL LYMPHOCYTES % 0 % (0-0); BAND % (MANUAL) 2 % (0-6); BASOPHILS % (MANUAL) 0 % (0-2); EOSINOPHILS % (MANUAL) 1 % (0-7); LYMPHOCYTES % (MANUAL) 4 % (20-46); MONOCYTES % (MANUAL) 3 % (0-11)
[2017-06-04 08:01] LABS: ALANINE AMINOTRANSFERASE 6 U/L (12-78)
[2017-06-04] MEDS: NAPH,MB-DB/K PH,MBDB 250 MG TAB PO SCH ×4 (09:00→22:08)
[2017-06-04] MEDS: FERROUS SULFATE 325 MG TABLET.DR PO SCH (09:00)
[2017-06-04] MEDS: FAMOTIDINE PF 20 MG/2 ML VIAL IVP SCH (09:01)
[2017-06-04] MEDS: LEVOTHYROXINE SODIUM 0.1 MG VIAL IVP SCH (09:01)
[2017-06-04] MEDS: NEPHROVITE, (FOLIC ACID/VITAMIN B COMP W-C 1 TAB) PO SCH (09:02)
[2017-06-04] MEDS: LACTOBACILLUS RHAMNOSUS GG 1 CAP CAPSULE PO SCH ×2 (09:02→22:08)
[2017-06-04] MEDS: ERGOCALCIFEROL 8000 UNITS/ML ORAL SOLUTION, 60 ML BOTTLE PO SCH (09:02)
[2017-06-04] MEDS: VANCOMYCIN HCL ORAL SOLUTION 250 MG/5 ML, 80 ML NG SCH ×3 (09:02→22:08)
[2017-06-04] MEDS ORDERED: FUROSEMIDE 40 MG/4 ML VIAL IVP ONE (09:15)
[2017-06-04] MEDS: MENTHOL/ZINC OXIDE 113 GM OINT. TP SCH ×4 (09:37→22:07)
[2017-06-04] MEDS: ceFAZolin SODIUM 1 GM in D5W 50 ML IV SCH ×2 (13:00→22:09)
[2017-06-04] MEDS: LORazepam 2 MG/ML VIAL IVP PRN (15:41)
[2017-06-04] MEDS: FAT EMULSIONS 250 ML IV SCH (17:39)
[2017-06-04] MEDS: ENOXAPARIN SODIUM 40 MG/0.4 ML SYRINGE SUBCUT SCH (22:07)
[2017-06-04] MEDS: FERROUS SULFATE 300 MG/5 ML UDC GT SCH (22:09)
[2017-06-04] MEDS: TPN CENTRAL IV SCH ×11 (22:10)
[2017-06-04] MEDS: SODIUM CHLORIDE IV SCH ×11 (22:10)
[2017-06-04] MEDS: SODIUM ACETATE IV SCH ×11 (22:10)
[2017-06-04] MEDS: [UNRECOGNIZED DRUG - OTHER] IV SCH ×11 (22:10)
[2017-06-05] VITALS (34 sets, daily range): BP systolic 85–149
[2017-06-05] MEDS: LevALBUTEROL HCL 1.25 MG/0.5 ML *CONC.* VIAL.NEB (XOPENEX CONC.) INH SCH ×6 (03:29→23:48)
[2017-06-05] MEDS: metroNIDAZOLE 500 mg/NS 100 ML IV SCH ×2 (05:54→13:14)
[2017-06-05] MEDS: INSULIN REGULAR, HUMAN 100 UNITS/ML, 10 ML VIAL (novoLIN R) SUBCUT PRN ×4 (06:29→21:24)
[2017-06-05 06:39] LABS: BASOPHILS % (AUTO) 0.2 % (0.0-2.0); EOSINOPHILS # (AUTO) 0.1 K/uL (0.0-0.4); EOSINOPHILS % (AUTO) 0.9 % (0.0-4.0); HEMATOCRIT 25.7 % (36-48); HEMOGLOBIN 8.6 g/dL (12.0-16.0); LYMPHOCYTES # (AUTO) 0.6 K/uL (1.0-5.5); LYMPHOCYTES % (AUTO) 6.2 % (20.5-51.5); MEAN CORPUSCULAR HEMOGLOBIN 30 pg (27-31); MEAN CORPUSCULAR HGB CONC 33 % (32-36); MEAN CORPUSCULAR VOLUME 90 fL (79.0-98.0); MONOCYTES # (AUTO) 0.6 K/uL (0.0-1.0); MONOCYTES % (AUTO) 6.6 % (1.7-9.3); NEUTROPHILS # (AUTO) 8.3 K/uL (1.8-7.7); NEUTROPHILS % (AUTO) 86.1 % (40.0-70.0); PLATELET COUNT (AUTO) 240 K/uL (130-430); RED BLOOD CELL COUNT(AUTO) 2.85 MIL/uL (4.2-6.2); RED CELL DISTRIBUTION WIDTH 15.4 % (9.0-15.0); WHITE BLOOD COUNT (AUTO) 9.6 K/uL (4.8-10.8)
[2017-06-05 07:17] LABS: ANION GAP 10 (5-15); CALCIUM 7.7 mg/dL (8.4-11.0); CHLORIDE 105 mmol/L (98-107); CREATININE 1.14 mg/dL (0.55-1.30); GLUCOSE 262 mg/dL (70-99); SODIUM SERUM 141 mmol/L (136-145); UREA NITROGEN, BLOOD 35 mg/dL (8-21)
[2017-06-05 07:34] LABS: ALBUMIN 1.3 g/dL (3.4-4.8); ASPARTATE AMINOTRANSFERASE 10 U/L (10-37); PHOSPHORUS 3.4 mg/dL (2.7-4.5); TOTAL BILIRUBIN 0.4 mg/dL (0.0-1.0)
[2017-06-05 09:05] LABS: ALANINE AMINOTRANSFERASE 5 U/L (12-78)
[2017-06-05] MEDS ORDERED: FUROSEMIDE 40 MG/4 ML VIAL IVP ONE (09:15)
[2017-06-05] MEDS ORDERED: POTASSIUM CHLORIDE 40 MEQ in NS 250 ML IV ONE (09:15)
[2017-06-05] MEDS: FAMOTIDINE PF 20 MG/2 ML VIAL IVP SCH (09:16)
[2017-06-05] MEDS: ceFAZolin SODIUM 1 GM in D5W 50 ML IV SCH ×2 (09:16→20:52)
[2017-06-05] MEDS: LEVOTHYROXINE SODIUM 0.1 MG VIAL IVP SCH (09:17)
[2017-06-05] MEDS: VANCOMYCIN HCL ORAL SOLUTION 250 MG/5 ML, 80 ML NG SCH ×3 (09:17→20:53)
[2017-06-05] MEDS: ERGOCALCIFEROL 8000 UNITS/ML ORAL SOLUTION, 60 ML BOTTLE PO SCH (09:18)
[2017-06-05] MEDS: NAPH,MB-DB/K PH,MBDB 250 MG TAB PO SCH ×4 (09:18→20:53)
[2017-06-05] MEDS: LACTOBACILLUS RHAMNOSUS GG 1 CAP CAPSULE PO SCH ×2 (09:18→20:53)
[2017-06-05] MEDS: MENTHOL/ZINC OXIDE 113 GM OINT. TP SCH ×4 (09:19→20:54)
[2017-06-05] MEDS: FERROUS SULFATE 300 MG/5 ML UDC GT SCH ×2 (10:18→20:53)
[2017-06-05] MEDS: NEPHROVITE, (FOLIC ACID/VITAMIN B COMP W-C 1 TAB) PO SCH (11:42)
[2017-06-05] MEDS ORDERED: [UNRECOGNIZED DRUG - OTHER] IV SCH ×11 (12:30)
[2017-06-05] MEDS ORDERED: TPN CENTRAL IV SCH ×11 (12:30)
[2017-06-05] MEDS ORDERED: SODIUM CHLORIDE IV SCH ×11 (12:30)
[2017-06-05] MEDS ORDERED: SODIUM ACETATE IV SCH ×11 (12:30)
[2017-06-05] MEDS: LORazepam 2 MG/ML VIAL IVP PRN ×2 (14:02→23:51)
[2017-06-05] MEDS: POTASSIUM CHLORIDE 20 MEQ/PKT PACKET PO SCH (15:17)
[2017-06-05] MEDS: MORPHINE 2 MG/ML INJ. SYRINGE IVP PRN (16:18)
[2017-06-05] MEDS: SODIUM ACETATE IV SCH ×22 (17:35→17:57)
[2017-06-05] MEDS: FAT EMULSIONS 250 ML IV SCH (17:35)
[2017-06-05] MEDS: [UNRECOGNIZED DRUG - OTHER] IV SCH ×22 (17:35→17:57)
[2017-06-05] MEDS: SODIUM CHLORIDE IV SCH ×22 (17:35→17:57)
[2017-06-05] MEDS: TPN CENTRAL IV SCH ×22 (17:35→17:57)
[2017-06-05] MEDS: ENOXAPARIN SODIUM 40 MG/0.4 ML SYRINGE SUBCUT SCH (20:53)
[2017-06-05] MEDS: ANTIFUNGAL CLEAR OINTMENT TP SCH (21:33)
[2017-06-05] MEDS: AMIODARONE HCL 900 MG in D5W 482 ML IV SCH (22:06)
[2017-06-06] VITALS (35 sets, daily range): BP systolic 82–173
[2017-06-06] MEDS: LevALBUTEROL HCL 1.25 MG/0.5 ML *CONC.* VIAL.NEB (XOPENEX CONC.) INH SCH ×6 (03:35→23:21)
[2017-06-06] MEDS ORDERED: ROCURONIUM BROMIDE 10 MG/ML (ZEMURON) IV ONE (04:30)
[2017-06-06] MEDS ORDERED: HALOPERIDOL LACTATE 5 MG/ML VIAL IM ONE (04:30)
[2017-06-06] MEDS ORDERED: HALOPERIDOL LACTATE 5 MG/ML VIAL ONE (04:31)
[2017-06-06] MEDS: INSULIN REGULAR, HUMAN 100 UNITS/ML, 10 ML VIAL (novoLIN R) SUBCUT PRN ×3 (06:41→17:15)
[2017-06-06 06:44] LABS: BASOPHILS # (AUTO) 0.3 K/uL (0.0-0.2); BASOPHILS % (AUTO) 2.2 % (0.0-2.0); EOSINOPHILS # (AUTO) 0.1 K/uL (0.0-0.4); EOSINOPHILS % (AUTO) 0.4 % (0.0-4.0); HEMOGLOBIN 10.6 g/dL (12.0-16.0); LYMPHOCYTES # (AUTO) 0.4 K/uL (1.0-5.5); LYMPHOCYTES % (AUTO) 3.4 % (20.5-51.5); MEAN CORPUSCULAR HEMOGLOBIN 30 pg (27-31); MEAN CORPUSCULAR HGB CONC 33 % (32-36); MEAN CORPUSCULAR VOLUME 89 fL (79.0-98.0); MONOCYTES # (AUTO) 0.7 K/uL (0.0-1.0); MONOCYTES % (AUTO) 5.8 % (1.7-9.3); NEUTROPHILS # (AUTO) 11.4 K/uL (1.8-7.7); NEUTROPHILS % (AUTO) 88.2 % (40.0-70.0); PLATELET COUNT (AUTO) 283 K/uL (130-430); RED BLOOD CELL COUNT(AUTO) 3.58 MIL/uL (4.2-6.2); RED CELL DISTRIBUTION WIDTH 16.5 % (9.0-15.0); WHITE BLOOD COUNT (AUTO) 12.9 K/uL (4.8-10.8)
[2017-06-06] MEDS: LORazepam 2 MG/ML VIAL IVP PRN (06:49)
[2017-06-06 07:15] LABS: ANION GAP 8 (5-15); CALCIUM 7.4 mg/dL (8.4-11.0); CHLORIDE 107 mmol/L (98-107); CREATININE 1.15 mg/dL (0.55-1.30); GLUCOSE 358 mg/dL (70-99); PHOSPHORUS 4.1 mg/dL (2.7-4.5); POTASSIUM 4.1 mmol/L (3.5-5.1); SODIUM SERUM 139 mmol/L (136-145); TRIGLYCERIDES 63 mg/dL (30-150); UREA NITROGEN, BLOOD 31 mg/dL (8-21)
[2017-06-06] MEDS ORDERED: MAGNESIUM SULFATE IN WATER 100 ML IV ONE (07:45)
[2017-06-06] MEDS: ERGOCALCIFEROL 8000 UNITS/ML ORAL SOLUTION, 60 ML BOTTLE GT SCH ×2 (09:00→10:01)
[2017-06-06] MEDS ORDERED: FUROSEMIDE 40 MG/4 ML VIAL IVP SCH (09:00)
[2017-06-06] MEDS: VANCOMYCIN HCL ORAL SOLUTION 250 MG/5 ML, 80 ML NG SCH ×3 (10:00→21:52)
[2017-06-06] MEDS: FERROUS SULFATE 300 MG/5 ML UDC GT SCH ×2 (10:02→21:51)
[2017-06-06] MEDS: NAPH,MB-DB/K PH,MBDB 250 MG TAB PO SCH ×4 (10:02→21:52)
[2017-06-06] MEDS: LACTOBACILLUS RHAMNOSUS GG 1 CAP CAPSULE PO SCH ×2 (10:02→21:52)
[2017-06-06] MEDS: NEPHROVITE, (FOLIC ACID/VITAMIN B COMP W-C 1 TAB) PO SCH (10:03)
[2017-06-06] MEDS: ceFAZolin SODIUM 1 GM in D5W 50 ML IV SCH ×2 (10:04→21:51)
[2017-06-06] MEDS: LEVOTHYROXINE SODIUM 0.1 MG VIAL IVP SCH (10:16)
[2017-06-06] MEDS: POTASSIUM CHLORIDE 20 MEQ/PKT PACKET PO SCH (10:16)
[2017-06-06] MEDS: FAMOTIDINE PF 20 MG/2 ML VIAL IVP SCH (10:16)
[2017-06-06] MEDS: MORPHINE 2 MG/ML INJ. SYRINGE IVP PRN (11:34)
[2017-06-06] MEDS: MENTHOL/ZINC OXIDE 113 GM OINT. TP SCH ×4 (11:35→21:53)
[2017-06-06] MEDS: ANTIFUNGAL CLEAR OINTMENT TP SCH ×2 (11:42→21:54)
[2017-06-06] MEDS: SODIUM ACETATE IV SCH ×11 (17:33)
[2017-06-06] MEDS: TPN CENTRAL IV SCH ×11 (17:33)
[2017-06-06] MEDS: SODIUM CHLORIDE IV SCH ×11 (17:33)
[2017-06-06] MEDS: [UNRECOGNIZED DRUG - OTHER] IV SCH ×11 (17:33)
[2017-06-06] MEDS: FAT EMULSIONS 250 ML IV SCH (17:34)
[2017-06-06] MEDS: ENOXAPARIN SODIUM 40 MG/0.4 ML SYRINGE SUBCUT SCH (21:52)
[2017-06-07] VITALS (30 sets, daily range): BP systolic 125–188
[2017-06-07] MEDS: LevALBUTEROL HCL 1.25 MG/0.5 ML *CONC.* VIAL.NEB (XOPENEX CONC.) INH SCH ×6 (03:02→23:11)
[2017-06-07 07:09] LABS: BASOPHILS % (AUTO) 0.2 % (0.0-2.0); EOSINOPHILS # (AUTO) 0.1 K/uL (0.0-0.4); EOSINOPHILS % (AUTO) 0.9 % (0.0-4.0); HEMATOCRIT 27.5 % (36-48); HEMOGLOBIN 9.3 g/dL (12.0-16.0); LYMPHOCYTES # (AUTO) 0.8 K/uL (1.0-5.5); LYMPHOCYTES % (AUTO) 8.8 % (20.5-51.5); MEAN CORPUSCULAR HEMOGLOBIN 30 pg (27-31); MEAN CORPUSCULAR HGB CONC 34 % (32-36); MEAN CORPUSCULAR VOLUME 90 fL (79.0-98.0); MONOCYTES # (AUTO) 0.6 K/uL (0.0-1.0); MONOCYTES % (AUTO) 6.9 % (1.7-9.3); NEUTROPHILS # (AUTO) 7.6 K/uL (1.8-7.7); NEUTROPHILS % (AUTO) 83.2 % (40.0-70.0); PLATELET COUNT (AUTO) 275 K/uL (130-430); RED BLOOD CELL COUNT(AUTO) 3.06 MIL/uL (4.2-6.2); RED CELL DISTRIBUTION WIDTH 16.5 % (9.0-15.0); WHITE BLOOD COUNT (AUTO) 9.1 K/uL (4.8-10.8)
[2017-06-07 07:10] LABS: ALANINE AMINOTRANSFERASE 5 U/L (12-78); ALBUMIN 1.3 g/dL (3.4-4.8); ANION GAP 6 (5-15); ASPARTATE AMINOTRANSFERASE 16 U/L (10-37); CALCIUM 7.6 mg/dL (8.4-11.0); CHLORIDE 105 mmol/L (98-107); CREATININE 1.18 mg/dL (0.55-1.30); GLUCOSE 303 mg/dL (70-99); POTASSIUM 4.3 mmol/L (3.5-5.1); SODIUM SERUM 138 mmol/L (136-145); TOTAL BILIRUBIN 0.3 mg/dL (0.0-1.0); UREA NITROGEN, BLOOD 34 mg/dL (8-21)
[2017-06-07] MEDS: INSULIN REGULAR, HUMAN 100 UNITS/ML, 10 ML VIAL (novoLIN R) SUBCUT PRN ×4 (08:00→20:35)
[2017-06-07] MEDS: NAPH,MB-DB/K PH,MBDB 250 MG TAB PO SCH ×4 (08:30→20:11)
[2017-06-07] MEDS: FERROUS SULFATE 300 MG/5 ML UDC GT SCH ×2 (08:49→20:11)
[2017-06-07] MEDS: ceFAZolin SODIUM 1 GM in D5W 50 ML IV SCH ×2 (08:49→20:14)
[2017-06-07] MEDS: LACTOBACILLUS RHAMNOSUS GG 1 CAP CAPSULE PO SCH ×2 (08:50→20:11)
[2017-06-07] MEDS: FAMOTIDINE PF 20 MG/2 ML VIAL IVP SCH (08:50)
[2017-06-07] MEDS: POTASSIUM CHLORIDE 20 MEQ/PKT PACKET PO SCH (08:51)
[2017-06-07] MEDS: NEPHROVITE, (FOLIC ACID/VITAMIN B COMP W-C 1 TAB) PO SCH (08:51)
[2017-06-07] MEDS: MENTHOL/ZINC OXIDE 113 GM OINT. TP SCH ×4 (08:52→20:15)
[2017-06-07] MEDS: ANTIFUNGAL CLEAR OINTMENT TP SCH ×2 (08:53→20:42)
[2017-06-07] MEDS: AMIODARONE HCL 900 MG in D5W 482 ML IV SCH (08:54)
[2017-06-07] MEDS: VANCOMYCIN HCL ORAL SOLUTION 250 MG/5 ML, 80 ML NG SCH ×3 (08:55→20:27)
[2017-06-07] MEDS: LEVOTHYROXINE SODIUM 0.1 MG VIAL IVP SCH (08:57)
[2017-06-07] MEDS: ERGOCALCIFEROL 8000 UNITS/ML ORAL SOLUTION, 60 ML BOTTLE GT SCH ×2 (08:58)
[2017-06-07] MEDS: FUROSEMIDE 40 MG/4 ML VIAL IVP SCH ×2 (08:59→20:13)
[2017-06-07] MEDS: [UNRECOGNIZED DRUG - OTHER] IV SCH ×12 (18:08)
[2017-06-07] MEDS: SODIUM CHLORIDE IV SCH ×12 (18:08)
[2017-06-07] MEDS: SODIUM ACETATE IV SCH ×12 (18:08)
[2017-06-07] MEDS: TPN CENTRAL IV SCH ×12 (18:08)
[2017-06-07] MEDS: FAT EMULSIONS 250 ML IV SCH (18:10)
[2017-06-07] MEDS: ENOXAPARIN SODIUM 40 MG/0.4 ML SYRINGE SUBCUT SCH (20:14)
[2017-06-07] MEDS: MORPHINE 2 MG/ML INJ. SYRINGE IVP PRN (20:41)
[2017-06-08] VITALS (31 sets, daily range): BP systolic 118–176
[2017-06-08] MEDS: LevALBUTEROL HCL 1.25 MG/0.5 ML *CONC.* VIAL.NEB (XOPENEX CONC.) INH SCH ×6 (04:31→23:18)
[2017-06-08] MEDS: MORPHINE 2 MG/ML INJ. SYRINGE IVP PRN (05:17)
[2017-06-08] MEDS: INSULIN REGULAR, HUMAN 100 UNITS/ML, 10 ML VIAL (novoLIN R) SUBCUT PRN ×3 (06:45→18:07)
[2017-06-08 06:47] LABS: BASOPHILS # (AUTO) 0.1 K/uL (0.0-0.2); BASOPHILS % (AUTO) 0.5 % (0.0-2.0); EOSINOPHILS # (AUTO) 0.1 K/uL (0.0-0.4); EOSINOPHILS % (AUTO) 0.6 % (0.0-4.0); HEMATOCRIT 31.6 % (36-48); HEMOGLOBIN 10.4 g/dL (12.0-16.0); LYMPHOCYTES # (AUTO) 0.9 K/uL (1.0-5.5); LYMPHOCYTES % (AUTO) 7.4 % (20.5-51.5); MEAN CORPUSCULAR HEMOGLOBIN 30 pg (27-31); MEAN CORPUSCULAR HGB CONC 33 % (32-36); MEAN CORPUSCULAR VOLUME 90 fL (79.0-98.0); MONOCYTES % (AUTO) 8.7 % (1.7-9.3); NEUTROPHILS % (AUTO) 82.8 % (40.0-70.0); PLATELET COUNT (AUTO) 327 K/uL (130-430); RED BLOOD CELL COUNT(AUTO) 3.52 MIL/uL (4.2-6.2); RED CELL DISTRIBUTION WIDTH 16.3 % (9.0-15.0)
[2017-06-08 07:07] LABS: ALANINE AMINOTRANSFERASE 6 U/L (12-78); ALBUMIN 1.6 g/dL (3.4-4.8); ANION GAP 6 (5-15); ASPARTATE AMINOTRANSFERASE 15 U/L (10-37); CALCIUM 7.6 mg/dL (8.4-11.0); CHLORIDE 102 mmol/L (98-107); GLUCOSE 241 mg/dL (70-99); PHOSPHORUS 3.7 mg/dL (2.7-4.5); POTASSIUM 4.5 mmol/L (3.5-5.1); SODIUM SERUM 137 mmol/L (136-145); TOTAL BILIRUBIN 0.8 mg/dL (0.0-1.0); UREA NITROGEN, BLOOD 34 mg/dL (8-21)
[2017-06-08 07:24] LABS: WHITE BLOOD COUNT (AUTO) 12.1 K/uL (4.8-10.8)
[2017-06-08] MEDS: NEPHROVITE, (FOLIC ACID/VITAMIN B COMP W-C 1 TAB) PO SCH (10:59)
[2017-06-08] MEDS: POTASSIUM CHLORIDE 20 MEQ/PKT PACKET PO SCH (10:59)
[2017-06-08] MEDS: FUROSEMIDE 40 MG/4 ML VIAL IVP SCH ×2 (11:00→21:18)
[2017-06-08] MEDS: LACTOBACILLUS RHAMNOSUS GG 1 CAP CAPSULE PO SCH ×2 (11:01→21:18)
[2017-06-08] MEDS: FAMOTIDINE PF 20 MG/2 ML VIAL IVP SCH (11:01)
[2017-06-08] MEDS: LEVOTHYROXINE SODIUM 0.1 MG VIAL IVP SCH (11:01)
[2017-06-08] MEDS: VANCOMYCIN HCL ORAL SOLUTION 250 MG/5 ML, 80 ML NG SCH ×3 (11:02→21:18)
[2017-06-08] MEDS: ERGOCALCIFEROL 8000 UNITS/ML ORAL SOLUTION, 60 ML BOTTLE GT SCH ×2 (11:03→11:21)
[2017-06-08] MEDS: ANTIFUNGAL CLEAR OINTMENT TP SCH ×2 (11:31→21:19)
[2017-06-08] MEDS: MENTHOL/ZINC OXIDE 113 GM OINT. TP SCH ×4 (11:31→21:19)
[2017-06-08] MEDS: ceFAZolin SODIUM 1 GM in D5W 50 ML IV SCH ×2 (11:35→21:17)
[2017-06-08] MEDS: FERROUS SULFATE 300 MG/5 ML UDC GT SCH ×2 (11:36→21:16)
[2017-06-08] MEDS: NAPH,MB-DB/K PH,MBDB 250 MG TAB PO SCH ×4 (11:36→21:18)
[2017-06-08] MEDS ORDERED: AMIODARONE HCL 900 MG in D5W 482 ML IV SCH (17:15)
[2017-06-08] MEDS: FAT EMULSIONS 250 ML IV SCH (17:41)
[2017-06-08] MEDS: SODIUM CHLORIDE IV SCH ×12 (17:43)
[2017-06-08] MEDS: SODIUM ACETATE IV SCH ×12 (17:43)
[2017-06-08] MEDS: [UNRECOGNIZED DRUG - OTHER] IV SCH ×12 (17:43)
[2017-06-08] MEDS: TPN CENTRAL IV SCH ×12 (17:43)
[2017-06-08] MEDS ORDERED: SODIUM ACETATE IV SCH ×12 (18:00)
[2017-06-08] MEDS ORDERED: TPN CENTRAL IV SCH ×12 (18:00)
[2017-06-08] MEDS ORDERED: SODIUM CHLORIDE IV SCH ×12 (18:00)
[2017-06-08] MEDS ORDERED: [UNRECOGNIZED DRUG - OTHER] IV SCH ×12 (18:00)
[2017-06-08] MEDS: ENOXAPARIN SODIUM 40 MG/0.4 ML SYRINGE SUBCUT SCH (21:18)
[2017-06-09] VITALS (34 sets, daily range): BP systolic 100–168
[2017-06-09] MEDS: INSULIN REGULAR, HUMAN 100 UNITS/ML, 10 ML VIAL (novoLIN R) SUBCUT PRN ×4 (01:24→17:48)
[2017-06-09] MEDS: LevALBUTEROL HCL 1.25 MG/0.5 ML *CONC.* VIAL.NEB (XOPENEX CONC.) INH SCH ×6 (03:16→23:31)
[2017-06-09 06:55] LABS: EOSINOPHILS # (AUTO) 0.1 K/uL (0.0-0.4); EOSINOPHILS % (AUTO) 0.6 % (0.0-4.0); HEMATOCRIT 28.5 % (36-48); HEMOGLOBIN 9.5 g/dL (12.0-16.0); LYMPHOCYTES # (AUTO) 0.7 K/uL (1.0-5.5); LYMPHOCYTES % (AUTO) 7.4 % (20.5-51.5); MEAN CORPUSCULAR HEMOGLOBIN 30 pg (27-31); MEAN CORPUSCULAR HGB CONC 33 % (32-36); MEAN CORPUSCULAR VOLUME 90 fL (79.0-98.0); MONOCYTES # (AUTO) 0.7 K/uL (0.0-1.0); MONOCYTES % (AUTO) 7.5 % (1.7-9.3); NEUTROPHILS # (AUTO) 7.9 K/uL (1.8-7.7); NEUTROPHILS % (AUTO) 84.5 % (40.0-70.0); PLATELET COUNT (AUTO) 300 K/uL (130-430); RED BLOOD CELL COUNT(AUTO) 3.18 MIL/uL (4.2-6.2); RED CELL DISTRIBUTION WIDTH 16.3 % (9.0-15.0); WHITE BLOOD COUNT (AUTO) 9.4 K/uL (4.8-10.8)
[2017-06-09 07:36] LABS: ALANINE AMINOTRANSFERASE 7 U/L (12-78); ALBUMIN 1.5 g/dL (3.4-4.8); ANION GAP 6 (5-15); ASPARTATE AMINOTRANSFERASE 15 U/L (10-37); CALCIUM 7.5 mg/dL (8.4-11.0); CHLORIDE 103 mmol/L (98-107); CREATININE 1.23 mg/dL (0.55-1.30); GLUCOSE 227 mg/dL (70-99); PHOSPHORUS 3.6 mg/dL (2.7-4.5); POTASSIUM 4.3 mmol/L (3.5-5.1); SODIUM SERUM 139 mmol/L (136-145); TOTAL BILIRUBIN 0.3 mg/dL (0.0-1.0); UREA NITROGEN, BLOOD 34 mg/dL (8-21)
[2017-06-09] MEDS ORDERED: AMIODARONE HCL 200 MG TABLET NG SCH (09:00)
[2017-06-09] MEDS: ERGOCALCIFEROL 8000 UNITS/ML ORAL SOLUTION, 60 ML BOTTLE GT SCH ×2 (09:00→10:35)
[2017-06-09] MEDS: LEVOTHYROXINE SODIUM 0.1 MG VIAL IVP SCH (09:58)
[2017-06-09] MEDS: FUROSEMIDE 40 MG/4 ML VIAL IVP SCH ×2 (10:02→22:12)
[2017-06-09] MEDS: FAMOTIDINE PF 20 MG/2 ML VIAL IVP SCH (10:02)
[2017-06-09] MEDS: NEPHROVITE, (FOLIC ACID/VITAMIN B COMP W-C 1 TAB) PO SCH (10:04)
[2017-06-09] MEDS: FERROUS SULFATE 300 MG/5 ML UDC GT SCH ×2 (10:04→22:11)
[2017-06-09] MEDS: LACTOBACILLUS RHAMNOSUS GG 1 CAP CAPSULE PO SCH ×2 (10:04→22:12)
[2017-06-09] MEDS: POTASSIUM CHLORIDE 20 MEQ/PKT PACKET PO SCH (10:05)
[2017-06-09] MEDS: ANTIFUNGAL CLEAR OINTMENT TP SCH ×2 (10:06→22:13)
[2017-06-09] MEDS: AMIODARONE HCL 200 MG TABLET PO SCH (10:06)
[2017-06-09] MEDS: MENTHOL/ZINC OXIDE 113 GM OINT. TP SCH ×4 (10:07→22:14)
[2017-06-09] MEDS: NAPH,MB-DB/K PH,MBDB 250 MG TAB PO SCH ×4 (10:11→22:12)
[2017-06-09] MEDS: ceFAZolin SODIUM 1 GM in D5W 50 ML IV SCH ×2 (10:11→22:11)
[2017-06-09] MEDS: VANCOMYCIN HCL ORAL SOLUTION 250 MG/5 ML, 80 ML NG SCH ×3 (10:12→22:12)
[2017-06-09] MEDS: TPN CENTRAL IV SCH ×12 (17:49)
[2017-06-09] MEDS: [UNRECOGNIZED DRUG - OTHER] IV SCH ×12 (17:49)
[2017-06-09] MEDS: SODIUM CHLORIDE IV SCH ×12 (17:49)
[2017-06-09] MEDS: POTASSIUM CHLORIDE IV SCH ×12 (17:49)
[2017-06-09] MEDS: FAT EMULSIONS 250 ML IV SCH (19:44)
[2017-06-09] MEDS: ENOXAPARIN SODIUM 40 MG/0.4 ML SYRINGE SUBCUT SCH (22:13)
[2017-06-10] VITALS (35 sets, daily range): BP systolic 110–189
[2017-06-10] MEDS: INSULIN REGULAR, HUMAN 100 UNITS/ML, 10 ML VIAL (novoLIN R) SUBCUT PRN ×4 (00:15→17:40)
[2017-06-10] MEDS: LevALBUTEROL HCL 1.25 MG/0.5 ML *CONC.* VIAL.NEB (XOPENEX CONC.) INH SCH ×5 (03:54→22:19)
[2017-06-10 06:37] LABS: BASOPHILS % (AUTO) 0.4 % (0.0-2.0); EOSINOPHILS % (AUTO) 0.3 % (0.0-4.0); HEMATOCRIT 29.1 % (36-48); HEMOGLOBIN 9.6 g/dL (12.0-16.0); LYMPHOCYTES # (AUTO) 0.7 K/uL (1.0-5.5); LYMPHOCYTES % (AUTO) 6.4 % (20.5-51.5); MEAN CORPUSCULAR HEMOGLOBIN 30 pg (27-31); MEAN CORPUSCULAR HGB CONC 33 % (32-36); MEAN CORPUSCULAR VOLUME 90 fL (79.0-98.0); MONOCYTES # (AUTO) 0.9 K/uL (0.0-1.0); MONOCYTES % (AUTO) 8.3 % (1.7-9.3); NEUTROPHILS # (AUTO) 9.2 K/uL (1.8-7.7); NEUTROPHILS % (AUTO) 84.6 % (40.0-70.0); PLATELET COUNT (AUTO) 334 K/uL (130-430); RED BLOOD CELL COUNT(AUTO) 3.22 MIL/uL (4.2-6.2); RED CELL DISTRIBUTION WIDTH 16.3 % (9.0-15.0); WHITE BLOOD COUNT (AUTO) 10.8 K/uL (4.8-10.8)
[2017-06-10 07:10] LABS: ALANINE AMINOTRANSFERASE 7 U/L (12-78); ALBUMIN 1.4 g/dL (3.4-4.8); ANION GAP 6 (5-15); ASPARTATE AMINOTRANSFERASE 24 U/L (10-37); CALCIUM 7.8 mg/dL (8.4-11.0); CHLORIDE 103 mmol/L (98-107); CREATININE 1.32 mg/dL (0.55-1.30); GLUCOSE 321 mg/dL (70-99); PHOSPHORUS 3.8 mg/dL (2.7-4.5); POTASSIUM 4.2 mmol/L (3.5-5.1); SODIUM SERUM 138 mmol/L (136-145); TOTAL BILIRUBIN 0.3 mg/dL (0.0-1.0); UREA NITROGEN, BLOOD 39 mg/dL (8-21)
[2017-06-10] MEDS: NAPH,MB-DB/K PH,MBDB 250 MG TAB PO SCH ×4 (09:44→21:25)
[2017-06-10] MEDS: NEPHROVITE, (FOLIC ACID/VITAMIN B COMP W-C 1 TAB) PO SCH (09:44)
[2017-06-10] MEDS: ceFAZolin SODIUM 1 GM in D5W 50 ML IV SCH ×2 (09:45→21:24)
[2017-06-10] MEDS: AMIODARONE HCL 200 MG TABLET PO SCH (09:45)
[2017-06-10] MEDS: LEVOTHYROXINE SODIUM 0.1 MG VIAL IVP SCH (09:46)
[2017-06-10] MEDS: FAMOTIDINE PF 20 MG/2 ML VIAL IVP SCH (09:46)
[2017-06-10] MEDS: FERROUS SULFATE 300 MG/5 ML UDC GT SCH ×2 (09:46→21:24)
[2017-06-10] MEDS: FUROSEMIDE 40 MG/4 ML VIAL IVP SCH ×2 (09:46→21:29)
[2017-06-10] MEDS: POTASSIUM CHLORIDE 20 MEQ/PKT PACKET PO SCH (09:48)
[2017-06-10] MEDS: LACTOBACILLUS RHAMNOSUS GG 1 CAP CAPSULE PO SCH ×2 (09:48→21:25)
[2017-06-10] MEDS: ERGOCALCIFEROL 8000 UNITS/ML ORAL SOLUTION, 60 ML BOTTLE GT SCH ×2 (09:49→10:12)
[2017-06-10] MEDS: ANTIFUNGAL CLEAR OINTMENT TP SCH ×2 (10:11→21:30)
[2017-06-10] MEDS: MENTHOL/ZINC OXIDE 113 GM OINT. TP SCH ×4 (10:11→21:27)
[2017-06-10] MEDS: VANCOMYCIN HCL ORAL SOLUTION 250 MG/5 ML, 80 ML NG SCH ×3 (10:12→21:25)
[2017-06-10] MEDS: LORazepam 2 MG/ML VIAL IVP PRN (11:22)
[2017-06-10] MEDS ORDERED: LOPERAMIDE HCL 2 MG CAPSULE PO ONE (11:30)
[2017-06-10] MEDS: FAT EMULSIONS 250 ML IV SCH (17:28)
[2017-06-10] MEDS: SODIUM CHLORIDE IV SCH ×12 (17:32)
[2017-06-10] MEDS: [UNRECOGNIZED DRUG - OTHER] IV SCH ×12 (17:32)
[2017-06-10] MEDS: POTASSIUM CHLORIDE IV SCH ×12 (17:32)
[2017-06-10] MEDS: TPN CENTRAL IV SCH ×12 (17:32)
[2017-06-10] MEDS: ENOXAPARIN SODIUM 40 MG/0.4 ML SYRINGE SUBCUT SCH (21:26)
[2017-06-11] VITALS (35 sets, daily range): BP systolic 97–148
[2017-06-11] MEDS: INSULIN REGULAR, HUMAN 100 UNITS/ML, 10 ML VIAL (novoLIN R) SUBCUT PRN ×4 (00:21→17:39)
[2017-06-11] MEDS: LevALBUTEROL HCL 1.25 MG/0.5 ML *CONC.* VIAL.NEB (XOPENEX CONC.) INH SCH ×6 (03:16→23:40)
[2017-06-11 06:44] LABS: ANION GAP 6 (5-15); CALCIUM 7.9 mg/dL (8.4-11.0); CHLORIDE 103 mmol/L (98-107); CREATININE 1.27 mg/dL (0.55-1.30); GLUCOSE 274 mg/dL (70-99); POTASSIUM 3.7 mmol/L (3.5-5.1); SODIUM SERUM 140 mmol/L (136-145); UREA NITROGEN, BLOOD 41 mg/dL (8-21)
[2017-06-11 07:09] LABS: BASOPHILS % (AUTO) 0.2 % (0.0-2.0); EOSINOPHILS # (AUTO) 0.1 K/uL (0.0-0.4); EOSINOPHILS % (AUTO) 1.4 % (0.0-4.0); HEMATOCRIT 29.3 % (36-48); HEMOGLOBIN 9.8 g/dL (12.0-16.0); LYMPHOCYTES # (AUTO) 0.8 K/uL (1.0-5.5); LYMPHOCYTES % (AUTO) 8.2 % (20.5-51.5); MEAN CORPUSCULAR HEMOGLOBIN 31 pg (27-31); MEAN CORPUSCULAR HGB CONC 34 % (32-36); MEAN CORPUSCULAR VOLUME 91 fL (79.0-98.0); MONOCYTES # (AUTO) 0.9 K/uL (0.0-1.0); MONOCYTES % (AUTO) 9.1 % (1.7-9.3); NEUTROPHILS # (AUTO) 7.7 K/uL (1.8-7.7); NEUTROPHILS % (AUTO) 81.1 % (40.0-70.0); PLATELET COUNT (AUTO) 360 K/uL (130-430); RED BLOOD CELL COUNT(AUTO) 3.22 MIL/uL (4.2-6.2); RED CELL DISTRIBUTION WIDTH 16.5 % (9.0-15.0); WHITE BLOOD COUNT (AUTO) 9.5 K/uL (4.8-10.8)
[2017-06-11] MEDS: ERGOCALCIFEROL 8000 UNITS/ML ORAL SOLUTION, 60 ML BOTTLE GT SCH ×2 (09:00→09:58)
[2017-06-11] MEDS: POTASSIUM CHLORIDE 20 MEQ/PKT PACKET PO SCH (09:55)
[2017-06-11] MEDS: FAMOTIDINE PF 20 MG/2 ML VIAL IVP SCH (09:55)
[2017-06-11] MEDS: ceFAZolin SODIUM 1 GM in D5W 50 ML IV SCH ×2 (09:55→21:25)
[2017-06-11] MEDS: FERROUS SULFATE 300 MG/5 ML UDC GT SCH ×2 (09:56→21:25)
[2017-06-11] MEDS: NEPHROVITE, (FOLIC ACID/VITAMIN B COMP W-C 1 TAB) PO SCH (09:56)
[2017-06-11] MEDS: LACTOBACILLUS RHAMNOSUS GG 1 CAP CAPSULE PO SCH ×2 (09:56→21:26)
[2017-06-11] MEDS: LEVOTHYROXINE SODIUM 0.1 MG VIAL IVP SCH (09:56)
[2017-06-11] MEDS: AMIODARONE HCL 200 MG TABLET PO SCH (09:57)
[2017-06-11] MEDS: FUROSEMIDE 40 MG/4 ML VIAL IVP SCH ×2 (09:59→21:26)
[2017-06-11] MEDS: VANCOMYCIN HCL ORAL SOLUTION 250 MG/5 ML, 80 ML NG SCH ×3 (10:01→21:26)
[2017-06-11] MEDS: MENTHOL/ZINC OXIDE 113 GM OINT. TP SCH ×4 (10:02→21:27)
[2017-06-11] MEDS: ANTIFUNGAL CLEAR OINTMENT TP SCH ×2 (10:02→21:27)
[2017-06-11] MEDS: NAPH,MB-DB/K PH,MBDB 250 MG TAB PO SCH ×4 (10:09→21:26)
[2017-06-11] MEDS: FAT EMULSIONS 250 ML IV SCH (17:40)
[2017-06-11] MEDS ORDERED: K PHOS IV SCH ×11 (18:00)
[2017-06-11] MEDS ORDERED: POTASSIUM CHLORIDE IV SCH ×11 (18:00)
[2017-06-11] MEDS ORDERED: SODIUM CHLORIDE IV SCH ×11 (18:00)
[2017-06-11] MEDS ORDERED: TPN CENTRAL IV SCH ×11 (18:00)
[2017-06-11] MEDS ORDERED: [UNRECOGNIZED DRUG - OTHER] IV SCH ×11 (18:00)
[2017-06-11] MEDS: ENOXAPARIN SODIUM 40 MG/0.4 ML SYRINGE SUBCUT SCH (21:27)
[2017-06-12] VITALS (32 sets, daily range): BP systolic 11–195
[2017-06-12] MEDS: LevALBUTEROL HCL 1.25 MG/0.5 ML *CONC.* VIAL.NEB (XOPENEX CONC.) INH SCH ×5 (04:05→23:46)
[2017-06-12 06:38] LABS: BASOPHILS % (AUTO) 0.3 % (0.0-2.0); EOSINOPHILS # (AUTO) 0.1 K/uL (0.0-0.4); EOSINOPHILS % (AUTO) 1.1 % (0.0-4.0); HEMATOCRIT 27.4 % (36-48); HEMOGLOBIN 8.8 g/dL (12.0-16.0); LYMPHOCYTES # (AUTO) 1.1 K/uL (1.0-5.5); LYMPHOCYTES % (AUTO) 13.6 % (20.5-51.5); MEAN CORPUSCULAR HEMOGLOBIN 29 pg (27-31); MEAN CORPUSCULAR HGB CONC 32 % (32-36); MEAN CORPUSCULAR VOLUME 91 fL (79.0-98.0); MONOCYTES # (AUTO) 0.8 K/uL (0.0-1.0); MONOCYTES % (AUTO) 9.8 % (1.7-9.3); NEUTROPHILS # (AUTO) 6.1 K/uL (1.8-7.7); NEUTROPHILS % (AUTO) 75.2 % (40.0-70.0); PLATELET COUNT (AUTO) 329 K/uL (130-430); RED BLOOD CELL COUNT(AUTO) 3.01 MIL/uL (4.2-6.2); RED CELL DISTRIBUTION WIDTH 17.1 % (9.0-15.0); WHITE BLOOD COUNT (AUTO) 8.1 K/uL (4.8-10.8)
[2017-06-12] MEDS: INSULIN REGULAR, HUMAN 100 UNITS/ML, 10 ML VIAL (novoLIN R) SUBCUT PRN ×4 (06:38→17:22)
[2017-06-12 06:49] LABS: ANION GAP 9 (5-15); CALCIUM 7.7 mg/dL (8.4-11.0); CHLORIDE 104 mmol/L (98-107); CREATININE 1.26 mg/dL (0.55-1.30); GLUCOSE 318 mg/dL (70-99); POTASSIUM 3.6 mmol/L (3.5-5.1); SODIUM SERUM 143 mmol/L (136-145); UREA NITROGEN, BLOOD 44 mg/dL (8-21)
[2017-06-12] MEDS: LACTOBACILLUS RHAMNOSUS GG 1 CAP CAPSULE PO SCH ×2 (08:20→21:15)
[2017-06-12] MEDS: AMIODARONE HCL 200 MG TABLET PO SCH (08:20)
[2017-06-12] MEDS: LEVOTHYROXINE SODIUM 0.1 MG VIAL IVP SCH (08:21)
[2017-06-12] MEDS: FERROUS SULFATE 300 MG/5 ML UDC GT SCH ×2 (08:21→21:15)
[2017-06-12] MEDS: POTASSIUM CHLORIDE 20 MEQ/PKT PACKET PO SCH (08:21)
[2017-06-12] MEDS: FUROSEMIDE 40 MG/4 ML VIAL IVP SCH ×2 (08:23→21:13)
[2017-06-12] MEDS: FAMOTIDINE PF 20 MG/2 ML VIAL IVP SCH (08:23)
[2017-06-12] MEDS: NEPHROVITE, (FOLIC ACID/VITAMIN B COMP W-C 1 TAB) PO SCH (08:23)
[2017-06-12] MEDS: NAPH,MB-DB/K PH,MBDB 250 MG TAB PO SCH ×4 (08:23→21:15)
[2017-06-12] MEDS: VANCOMYCIN HCL ORAL SOLUTION 250 MG/5 ML, 80 ML NG SCH ×3 (08:24→21:16)
[2017-06-12] MEDS: ERGOCALCIFEROL 8000 UNITS/ML ORAL SOLUTION, 60 ML BOTTLE GT SCH ×2 (08:24→08:27)
[2017-06-12] MEDS: ceFAZolin SODIUM 1 GM in D5W 50 ML IV SCH ×2 (08:25→21:15)
[2017-06-12] MEDS: ANTIFUNGAL CLEAR OINTMENT TP SCH ×2 (08:28→21:16)
[2017-06-12] MEDS: MENTHOL/ZINC OXIDE 113 GM OINT. TP SCH ×4 (08:29→21:16)
[2017-06-12] MEDS: K PHOS IV SCH ×11 (17:25)
[2017-06-12] MEDS: POTASSIUM CHLORIDE IV SCH ×11 (17:25)
[2017-06-12] MEDS: [UNRECOGNIZED DRUG - OTHER] IV SCH ×11 (17:25)
[2017-06-12] MEDS: TPN CENTRAL IV SCH ×11 (17:25)
[2017-06-12] MEDS: SODIUM CHLORIDE IV SCH ×11 (17:25)
[2017-06-12] MEDS: FAT EMULSIONS 250 ML IV SCH (17:26)
[2017-06-12] MEDS: MORPHINE 2 MG/ML INJ. SYRINGE IVP PRN ×2 (19:27→22:52)
[2017-06-12] MEDS: ENOXAPARIN SODIUM 40 MG/0.4 ML SYRINGE SUBCUT SCH (21:15)
[2017-06-13] VITALS (32 sets, daily range): BP systolic 102–184
[2017-06-13] MEDS: INSULIN REGULAR, HUMAN 100 UNITS/ML, 10 ML VIAL (novoLIN R) SUBCUT PRN ×4 (00:30→17:10)
[2017-06-13] MEDS: MORPHINE 2 MG/ML INJ. SYRINGE IVP PRN ×3 (02:13→14:31)
[2017-06-13] MEDS: LevALBUTEROL HCL 1.25 MG/0.5 ML *CONC.* VIAL.NEB (XOPENEX CONC.) INH SCH ×6 (04:39→23:25)
[2017-06-13 06:48] LABS: PROTHROMBIN TIME 10.8 SECS (9.5-12.5)
[2017-06-13 06:55] LABS: ALANINE AMINOTRANSFERASE 23 U/L (12-78); ALBUMIN 1.6 g/dL (3.4-4.8); ANION GAP 6 (5-15); ASPARTATE AMINOTRANSFERASE 32 U/L (10-37); BASOPHILS % (AUTO) 0.2 % (0.0-2.0); CALCIUM 8.5 mg/dL (8.4-11.0); CHLORIDE 107 mmol/L (98-107); CREATININE 1.22 mg/dL (0.55-1.30); EOSINOPHILS % (AUTO) 0.2 % (0.0-4.0); GLUCOSE 302 mg/dL (70-99); HEMATOCRIT 29.7 % (36-48); HEMOGLOBIN 9.7 g/dL (12.0-16.0); LYMPHOCYTES # (AUTO) 0.6 K/uL (1.0-5.5); LYMPHOCYTES % (AUTO) 5.5 % (20.5-51.5); MEAN CORPUSCULAR HEMOGLOBIN 30 pg (27-31); MEAN CORPUSCULAR HGB CONC 33 % (32-36); MEAN CORPUSCULAR VOLUME 92 fL (79.0-98.0); MONOCYTES # (AUTO) 0.9 K/uL (0.0-1.0); MONOCYTES % (AUTO) 7.6 % (1.7-9.3); NEUTROPHILS # (AUTO) 10.1 K/uL (1.8-7.7); NEUTROPHILS % (AUTO) 86.5 % (40.0-70.0); PLATELET COUNT (AUTO) 387 K/uL (130-430); RED BLOOD CELL COUNT(AUTO) 3.23 MIL/uL (4.2-6.2); RED CELL DISTRIBUTION WIDTH 16.9 % (9.0-15.0); SODIUM SERUM 144 mmol/L (136-145); TOTAL BILIRUBIN 0.4 mg/dL (0.0-1.0); UREA NITROGEN, BLOOD 41 mg/dL (8-21); WHITE BLOOD COUNT (AUTO) 11.6 K/uL (4.8-10.8)
[2017-06-13] MEDS ORDERED: LR 1,000 ML IV SCH (08:34)
[2017-06-13] MEDS ORDERED: ePHEDrine sulfate 50 MG/ML VIAL IVP PRN (08:45)
[2017-06-13] MEDS ORDERED: HYDROmorphone 1 MG INJ. 1 MG/ML AMPUL IVP PRN (08:45)
[2017-06-13] MEDS ORDERED: MEPERIDINE HCL/PF 25 MG/ML DISP.SYRIN IVP PRN ×2 (08:45)
[2017-06-13] MEDS ORDERED: HYDROmorphone 2 MG/ML VIAL IVP PRN ×2 (08:45)
[2017-06-13] MEDS ORDERED: ONDANSETRON HCL 4 MG/2 ML VIAL IVP PRN (08:45)
[2017-06-13] MEDS: ERGOCALCIFEROL 8000 UNITS/ML ORAL SOLUTION, 60 ML BOTTLE GT SCH ×2 (09:00→09:32)
[2017-06-13] MEDS: ceFAZolin SODIUM 1 GM in D5W 50 ML IV SCH ×2 (09:32→20:27)
[2017-06-13] MEDS: VANCOMYCIN HCL ORAL SOLUTION 250 MG/5 ML, 80 ML NG SCH ×3 (09:33→20:26)
[2017-06-13] MEDS: POTASSIUM CHLORIDE 20 MEQ/PKT PACKET PO SCH (09:34)
[2017-06-13] MEDS: FERROUS SULFATE 300 MG/5 ML UDC GT SCH ×2 (09:34→20:25)
[2017-06-13] MEDS: NEPHROVITE, (FOLIC ACID/VITAMIN B COMP W-C 1 TAB) PO SCH (09:35)
[2017-06-13] MEDS: NAPH,MB-DB/K PH,MBDB 250 MG TAB PO SCH ×4 (09:35→20:26)
[2017-06-13] MEDS: LACTOBACILLUS RHAMNOSUS GG 1 CAP CAPSULE PO SCH ×2 (09:36→20:26)
[2017-06-13] MEDS: AMIODARONE HCL 200 MG TABLET PO SCH (09:36)
[2017-06-13] MEDS: FUROSEMIDE 40 MG/4 ML VIAL IVP SCH ×2 (09:37→20:26)
[2017-06-13] MEDS: LEVOTHYROXINE SODIUM 0.1 MG VIAL IVP SCH (09:37)
[2017-06-13] MEDS: FAMOTIDINE PF 20 MG/2 ML VIAL IVP SCH (09:38)
[2017-06-13] MEDS: ANTIFUNGAL CLEAR OINTMENT TP SCH ×2 (09:39→20:28)
[2017-06-13] MEDS: MENTHOL/ZINC OXIDE 113 GM OINT. TP SCH ×4 (09:40→20:27)
[2017-06-13] MEDS: BALSAM PERU/CASTOR OIL 60 GM OINT...G. TP SCH (09:42)
[2017-06-13] MEDS: LORazepam 2 MG/ML VIAL IVP PRN (17:09)
[2017-06-13] MEDS: FAT EMULSIONS 250 ML IV SCH (17:14)
[2017-06-13] MEDS: K PHOS IV SCH ×11 (17:16)
[2017-06-13] MEDS: POTASSIUM CHLORIDE IV SCH ×11 (17:16)
[2017-06-13] MEDS: SODIUM CHLORIDE IV SCH ×11 (17:16)
[2017-06-13] MEDS: [UNRECOGNIZED DRUG - OTHER] IV SCH ×11 (17:16)
[2017-06-13] MEDS: TPN CENTRAL IV SCH ×11 (17:16)
[2017-06-13] MEDS ORDERED: ROCURONIUM BROMIDE 10 MG/ML (ZEMURON) IV ONE (17:39)
[2017-06-13] MEDS ORDERED: SEVOFLURANE 15 MIN GAS INH ONE (17:39)
[2017-06-13] MEDS ORDERED: LR 1,000 ML IV.SOLN IV ONE (17:39)
[2017-06-13] MEDS: ENOXAPARIN SODIUM 40 MG/0.4 ML SYRINGE SUBCUT SCH (20:26)
[2017-06-14] VITALS (31 sets, daily range): BP systolic 114–192
[2017-06-14] MEDS: INSULIN REGULAR, HUMAN 100 UNITS/ML, 10 ML VIAL (novoLIN R) SUBCUT PRN ×4 (00:12→18:01)
[2017-06-14] MEDS: LORazepam 2 MG/ML VIAL IVP PRN ×7 (00:26→22:42)
[2017-06-14] MEDS: LevALBUTEROL HCL 1.25 MG/0.5 ML *CONC.* VIAL.NEB (XOPENEX CONC.) INH SCH ×6 (03:21→23:15)
[2017-06-14 06:10] LABS: BASOPHILS % (AUTO) 0.2 % (0.0-2.0); EOSINOPHILS % (AUTO) 0.3 % (0.0-4.0); HEMATOCRIT 27.2 % (36-48); HEMOGLOBIN 8.9 g/dL (12.0-16.0); LYMPHOCYTES # (AUTO) 0.9 K/uL (1.0-5.5); LYMPHOCYTES % (AUTO) 6.7 % (20.5-51.5); MEAN CORPUSCULAR HEMOGLOBIN 30 pg (27-31); MEAN CORPUSCULAR HGB CONC 33 % (32-36); MEAN CORPUSCULAR VOLUME 91 fL (79.0-98.0); MONOCYTES % (AUTO) 7.4 % (1.7-9.3); NEUTROPHILS # (AUTO) 11.4 K/uL (1.8-7.7); NEUTROPHILS % (AUTO) 85.4 % (40.0-70.0); PLATELET COUNT (AUTO) 348 K/uL (130-430); RED BLOOD CELL COUNT(AUTO) 2.99 MIL/uL (4.2-6.2); RED CELL DISTRIBUTION WIDTH 16.6 % (9.0-15.0); WHITE BLOOD COUNT (AUTO) 13.3 K/uL (4.8-10.8)
[2017-06-14 06:19] LABS: ALANINE AMINOTRANSFERASE 18 U/L (12-78); ALBUMIN 1.6 g/dL (3.4-4.8); ANION GAP 6 (5-15); ASPARTATE AMINOTRANSFERASE 23 U/L (10-37); CALCIUM 8.4 mg/dL (8.4-11.0); CHLORIDE 109 mmol/L (98-107); CREATININE 1.15 mg/dL (0.55-1.30); GLUCOSE 286 mg/dL (70-99); POTASSIUM 3.5 mmol/L (3.5-5.1); SODIUM SERUM 145 mmol/L (136-145); TOTAL BILIRUBIN 0.4 mg/dL (0.0-1.0); UREA NITROGEN, BLOOD 47 mg/dL (8-21)
[2017-06-14] MEDS: FERROUS SULFATE 300 MG/5 ML UDC GT SCH ×2 (08:54→20:36)
[2017-06-14] MEDS: NEPHROVITE, (FOLIC ACID/VITAMIN B COMP W-C 1 TAB) PO SCH (08:55)
[2017-06-14] MEDS: LACTOBACILLUS RHAMNOSUS GG 1 CAP CAPSULE PO SCH ×2 (08:55→20:36)
[2017-06-14] MEDS: NAPH,MB-DB/K PH,MBDB 250 MG TAB PO SCH ×4 (08:55→20:36)
[2017-06-14] MEDS: POTASSIUM CHLORIDE 20 MEQ/PKT PACKET PO SCH (08:55)
[2017-06-14] MEDS: FAMOTIDINE PF 20 MG/2 ML VIAL IVP SCH (08:55)
[2017-06-14] MEDS: ERGOCALCIFEROL 8000 UNITS/ML ORAL SOLUTION, 60 ML BOTTLE GT SCH ×2 (08:56)
[2017-06-14] MEDS: VANCOMYCIN HCL ORAL SOLUTION 250 MG/5 ML, 80 ML NG SCH ×3 (08:56→20:36)
[2017-06-14] MEDS: ceFAZolin SODIUM 1 GM in D5W 50 ML IV SCH ×2 (08:57→20:36)
[2017-06-14] MEDS: AMIODARONE HCL 200 MG TABLET PO SCH (08:59)
[2017-06-14] MEDS: FUROSEMIDE 40 MG/4 ML VIAL IVP SCH ×2 (09:00→20:36)
[2017-06-14] MEDS: MENTHOL/ZINC OXIDE 113 GM OINT. TP SCH ×4 (09:00→20:39)
[2017-06-14] MEDS: LEVOTHYROXINE SODIUM 0.1 MG VIAL IVP SCH (09:00)
[2017-06-14] MEDS: BALSAM PERU/CASTOR OIL 60 GM OINT...G. TP SCH (09:01)
[2017-06-14] MEDS: ANTIFUNGAL CLEAR OINTMENT TP SCH ×2 (09:03→20:38)
[2017-06-14] MEDS ORDERED: MORPHINE 2 MG/ML INJ. SYRINGE IVP PRN (15:15)
[2017-06-14] MEDS ORDERED: ENOXAPARIN SODIUM 60 MG/0.6 ML SYRINGE SUBCUT ONE (16:45)
[2017-06-14] MEDS: FAT EMULSIONS 250 ML IV SCH (17:50)
[2017-06-14] MEDS: K PHOS IV SCH ×11 (17:52)
[2017-06-14] MEDS: [UNRECOGNIZED DRUG - OTHER] IV SCH ×11 (17:52)
[2017-06-14] MEDS: TPN CENTRAL IV SCH ×11 (17:52)
[2017-06-14] MEDS: POTASSIUM CHLORIDE IV SCH ×11 (17:52)
[2017-06-14] MEDS: SODIUM CHLORIDE IV SCH ×11 (17:52)
[2017-06-14] MEDS: ENOXAPARIN SODIUM 60 MG/0.6 ML SYRINGE SUBCUT SCH (20:37)
[2017-06-15] VITALS (29 sets, daily range): BP systolic 101–142
[2017-06-15] MEDS: INSULIN REGULAR, HUMAN 100 UNITS/ML, 10 ML VIAL (novoLIN R) SUBCUT PRN ×4 (00:49→17:38)
[2017-06-15] MEDS: LevALBUTEROL HCL 1.25 MG/0.5 ML *CONC.* VIAL.NEB (XOPENEX CONC.) INH SCH ×6 (04:17→23:48)
[2017-06-15 06:40] LABS: ANION GAP 6 (5-15); CALCIUM 8.6 mg/dL (8.4-11.0); CHLORIDE 113 mmol/L (98-107); CREATININE 1.32 mg/dL (0.55-1.30); GLUCOSE 227 mg/dL (70-99); PHOSPHORUS 4.6 mg/dL (2.7-4.5); POTASSIUM 3.6 mmol/L (3.5-5.1); SODIUM SERUM 147 mmol/L (136-145); UREA NITROGEN, BLOOD 53 mg/dL (8-21)
[2017-06-15 06:55] LABS: BASOPHILS % (AUTO) 0.3 % (0.0-2.0); EOSINOPHILS % (AUTO) 0.1 % (0.0-4.0); HEMATOCRIT 28.4 % (36-48); HEMOGLOBIN 9.1 g/dL (12.0-16.0); LYMPHOCYTES % (AUTO) 7.8 % (20.5-51.5); MEAN CORPUSCULAR HEMOGLOBIN 30 pg (27-31); MEAN CORPUSCULAR HGB CONC 32 % (32-36); MEAN CORPUSCULAR VOLUME 92 fL (79.0-98.0); MONOCYTES % (AUTO) 7.8 % (1.7-9.3); NEUTROPHILS # (AUTO) 11.1 K/uL (1.8-7.7); PLATELET COUNT (AUTO) 327 K/uL (130-430); RED BLOOD CELL COUNT(AUTO) 3.09 MIL/uL (4.2-6.2); RED CELL DISTRIBUTION WIDTH 17.8 % (9.0-15.0); WHITE BLOOD COUNT (AUTO) 13.1 K/uL (4.8-10.8)
[2017-06-15] MEDS: ERGOCALCIFEROL 8000 UNITS/ML ORAL SOLUTION, 60 ML BOTTLE GT SCH ×2 (09:00→13:14)
[2017-06-15] MEDS: ceFAZolin SODIUM 1 GM in D5W 50 ML IV SCH ×2 (09:32→20:36)
[2017-06-15] MEDS: FERROUS SULFATE 300 MG/5 ML UDC GT SCH ×2 (09:32→20:35)
[2017-06-15] MEDS: ENOXAPARIN SODIUM 60 MG/0.6 ML SYRINGE SUBCUT SCH (09:32)
[2017-06-15] MEDS: LACTOBACILLUS RHAMNOSUS GG 1 CAP CAPSULE PO SCH ×2 (09:33→20:36)
[2017-06-15] MEDS: POTASSIUM CHLORIDE 20 MEQ/PKT PACKET PO SCH (09:33)
[2017-06-15] MEDS: AMIODARONE HCL 200 MG TABLET PO SCH (09:33)
[2017-06-15] MEDS: NAPH,MB-DB/K PH,MBDB 250 MG TAB PO SCH ×4 (09:33→20:35)
[2017-06-15] MEDS: LEVOTHYROXINE SODIUM 0.1 MG VIAL IVP SCH (09:34)
[2017-06-15] MEDS: FAMOTIDINE PF 20 MG/2 ML VIAL IVP SCH (09:34)
[2017-06-15] MEDS: FUROSEMIDE 40 MG/4 ML VIAL IVP SCH ×2 (09:34→20:35)
[2017-06-15] MEDS: NEPHROVITE, (FOLIC ACID/VITAMIN B COMP W-C 1 TAB) PO SCH (09:39)
[2017-06-15] MEDS: VANCOMYCIN HCL ORAL SOLUTION 250 MG/5 ML, 80 ML NG SCH ×3 (09:40→21:00)
[2017-06-15] MEDS ORDERED: *HEPARIN PER PHARMACY XX ONE (09:45)
[2017-06-15] MEDS ORDERED: HEPARIN SODIUM,PORCINE 5000 UNITS/ML VIAL SUBCUT ONE (10:30)
[2017-06-15] MEDS ORDERED: FLUCONAZOLE 200 mg/ NS 100 ML IV ONE (10:30)
[2017-06-15] MEDS ORDERED: HEPARIN SODIUM,PORCINE 2000 UNITS/0.4 ML BOLUS IVP PRN (10:30)
[2017-06-15] MEDS ORDERED: HEPARIN SODIUM,PORCINE 3000 UNITS/0.6 ML BOLUS IVP PRN (10:30)
[2017-06-15] MEDS ORDERED: LOPERAMIDE HCL 2 MG CAPSULE PO PRN (10:30)
[2017-06-15] MEDS: HEPARIN 25,000 UNITS in 250 ML PREMIX IV PRN (12:29)
[2017-06-15] MEDS: BALSAM PERU/CASTOR OIL 60 GM OINT...G. TP PRN (16:51)
[2017-06-15] MEDS: BALSAM PERU/CASTOR OIL 60 GM OINT...G. TP SCH (16:56)
[2017-06-15] MEDS: MENTHOL/ZINC OXIDE 113 GM OINT. TP SCH ×4 (16:57→20:39)
[2017-06-15] MEDS: MORPHINE 2 MG/ML INJ. SYRINGE IVP PRN ×2 (17:00→22:10)
[2017-06-15] MEDS: ANTIFUNGAL CLEAR OINTMENT TP SCH ×2 (17:29→21:26)
[2017-06-15] MEDS: LORazepam 2 MG/ML VIAL IVP PRN ×2 (20:29→23:04)
[2017-06-16] VITALS (27 sets, daily range): BP systolic 99–149
[2017-06-16] MEDS: INSULIN REGULAR, HUMAN 100 UNITS/ML, 10 ML VIAL (novoLIN R) SUBCUT PRN ×4 (01:20→17:24)
[2017-06-16] MEDS: LORazepam 2 MG/ML VIAL IVP PRN ×4 (02:34→13:48)
[2017-06-16 03:48] LABS: RED BLOOD CELL COUNT(AUTO) 3.08 MIL/uL (4.2-6.2); WHITE BLOOD COUNT (AUTO) 11.9 K/uL (4.8-10.8)
[2017-06-16 03:49] LABS: BASOPHILS % (AUTO) 0.3 % (0.0-2.0); EOSINOPHILS % (AUTO) 0.1 % (0.0-4.0); HEMATOCRIT 28.1 % (36-48); HEMOGLOBIN 9.2 g/dL (12.0-16.0); LYMPHOCYTES % (AUTO) 7.7 % (20.5-51.5); MEAN CORPUSCULAR HEMOGLOBIN 30 pg (27-31); MEAN CORPUSCULAR HGB CONC 33 % (32-36); MEAN CORPUSCULAR VOLUME 91 fL (79.0-98.0); NEUTROPHILS # (AUTO) 9.8 K/uL (1.8-7.7); NEUTROPHILS % (AUTO) 81.9 % (40.0-70.0); PLATELET COUNT (AUTO) 316 K/uL (130-430); RED CELL DISTRIBUTION WIDTH 17.8 % (9.0-15.0)
[2017-06-16 03:50] LABS: LYMPHOCYTES # (AUTO) 0.9 K/uL (1.0-5.5); MONOCYTES # (AUTO) 1.2 K/uL (0.0-1.0)
[2017-06-16 03:58] LABS: ALANINE AMINOTRANSFERASE 20 U/L (12-78); ALBUMIN 1.8 g/dL (3.4-4.8); ANION GAP 8 (5-15); ASPARTATE AMINOTRANSFERASE 29 U/L (10-37); CALCIUM 8.6 mg/dL (8.4-11.0); CHLORIDE 112 mmol/L (98-107); CREATININE 1.54 mg/dL (0.55-1.30); GLUCOSE 280 mg/dL (70-99); POTASSIUM 3.2 mmol/L (3.5-5.1); SODIUM SERUM 149 mmol/L (136-145); TOTAL BILIRUBIN 0.4 mg/dL (0.0-1.0); UREA NITROGEN, BLOOD 55 mg/dL (8-21)
[2017-06-16] MEDS: LevALBUTEROL HCL 1.25 MG/0.5 ML *CONC.* VIAL.NEB (XOPENEX CONC.) INH SCH ×5 (04:12→22:54)
[2017-06-16] MEDS: MORPHINE 2 MG/ML INJ. SYRINGE IVP PRN ×6 (08:05→23:02)
[2017-06-16] MEDS: ceFAZolin SODIUM 1 GM in D5W 50 ML IV SCH ×2 (09:26→21:28)
[2017-06-16] MEDS: FERROUS SULFATE 300 MG/5 ML UDC GT SCH ×2 (09:26→21:27)
[2017-06-16] MEDS: NEPHROVITE, (FOLIC ACID/VITAMIN B COMP W-C 1 TAB) PO SCH (09:27)
[2017-06-16] MEDS: LACTOBACILLUS RHAMNOSUS GG 1 CAP CAPSULE PO SCH ×2 (09:27→21:27)
[2017-06-16] MEDS: NAPH,MB-DB/K PH,MBDB 250 MG TAB PO SCH ×4 (09:27→21:27)
[2017-06-16] MEDS: POTASSIUM CHLORIDE 20 MEQ/PKT PACKET PO SCH ×2 (09:28→13:34)
[2017-06-16] MEDS: AMIODARONE HCL 200 MG TABLET PO SCH (09:28)
[2017-06-16] MEDS: FAMOTIDINE PF 20 MG/2 ML VIAL IVP SCH (09:29)
[2017-06-16] MEDS: LEVOTHYROXINE SODIUM 0.1 MG VIAL IVP SCH (09:29)
[2017-06-16] MEDS ORDERED: POTASSIUM CHLORIDE 20 MEQ/PKT PACKET PO ONE (09:30)
[2017-06-16] MEDS: BALSAM PERU/CASTOR OIL 60 GM OINT...G. TP PRN ×2 (09:32→09:34)
[2017-06-16] MEDS: MENTHOL/ZINC OXIDE 113 GM OINT. TP SCH ×4 (09:33→21:33)
[2017-06-16] MEDS: BALSAM PERU/CASTOR OIL 60 GM OINT...G. TP SCH (09:34)
[2017-06-16] MEDS: ERGOCALCIFEROL 8000 UNITS/ML ORAL SOLUTION, 60 ML BOTTLE GT SCH (10:09)
[2017-06-16] MEDS: ANTIFUNGAL CLEAR OINTMENT TP SCH ×2 (10:10→21:32)
[2017-06-16] MEDS: VANCOMYCIN HCL ORAL SOLUTION 250 MG/5 ML, 80 ML NG SCH ×3 (11:29→21:31)
[2017-06-16] MEDS: FUROSEMIDE 40 MG/4 ML VIAL IVP SCH (11:40)
[2017-06-16] MEDS: HEPARIN 25,000 UNITS in 250 ML PREMIX IV PRN (15:45)
[2017-06-17] VITALS (27 sets, daily range): BP systolic 88–153
[2017-06-17] MEDS: INSULIN REGULAR, HUMAN 100 UNITS/ML, 10 ML VIAL (novoLIN R) SUBCUT PRN ×4 (00:44→18:24)
[2017-06-17] MEDS: MORPHINE 2 MG/ML INJ. SYRINGE IVP PRN ×6 (02:13→18:29)
[2017-06-17] MEDS: LevALBUTEROL HCL 1.25 MG/0.5 ML *CONC.* VIAL.NEB (XOPENEX CONC.) INH SCH ×5 (04:01→19:41)
[2017-06-17] MEDS ORDERED: DILTIAZEM HCL 25 MG/5 ML VIAL ONE (05:43)
[2017-06-17 06:05] LABS: ALANINE AMINOTRANSFERASE 14 U/L (12-78); ALBUMIN 1.9 g/dL (3.4-4.8); ANION GAP 10 (5-15); ASPARTATE AMINOTRANSFERASE 20 U/L (10-37); CALCIUM 8.7 mg/dL (8.4-11.0); CHLORIDE 115 mmol/L (98-107); CREATININE 1.53 mg/dL (0.55-1.30); GLUCOSE 262 mg/dL (70-99); PHOSPHORUS 5.4 mg/dL (2.7-4.5); SODIUM SERUM 153 mmol/L (136-145); TOTAL BILIRUBIN 0.4 mg/dL (0.0-1.0); UREA NITROGEN, BLOOD 58 mg/dL (8-21)
[2017-06-17 06:25] LABS: BASOPHILS % (AUTO) 0.1 % (0.0-2.0); EOSINOPHILS % (AUTO) 0.1 % (0.0-4.0); HEMATOCRIT 30.4 % (36-48); HEMOGLOBIN 9.7 g/dL (12.0-16.0); LYMPHOCYTES % (AUTO) 6.7 % (20.5-51.5); MEAN CORPUSCULAR HEMOGLOBIN 30 pg (27-31); MEAN CORPUSCULAR HGB CONC 32 % (32-36); MEAN CORPUSCULAR VOLUME 93 fL (79.0-98.0); MONOCYTES # (AUTO) 1.2 K/uL (0.0-1.0); MONOCYTES % (AUTO) 8.3 % (1.7-9.3); NEUTROPHILS # (AUTO) 12.1 K/uL (1.8-7.7); NEUTROPHILS % (AUTO) 84.8 % (40.0-70.0); PLATELET COUNT (AUTO) 377 K/uL (130-430); RED BLOOD CELL COUNT(AUTO) 3.28 MIL/uL (4.2-6.2); RED CELL DISTRIBUTION WIDTH 18.1 % (9.0-15.0)
[2017-06-17 07:58] LABS: WHITE BLOOD COUNT (AUTO) 14.3 K/uL (4.8-10.8)
[2017-06-17] MEDS: POTASSIUM CHLORIDE 20 MEQ/PKT PACKET PO SCH (08:57)
[2017-06-17] MEDS: NAPH,MB-DB/K PH,MBDB 250 MG TAB PO SCH ×3 (08:57→18:07)
[2017-06-17] MEDS: NEPHROVITE, (FOLIC ACID/VITAMIN B COMP W-C 1 TAB) PO SCH (08:57)
[2017-06-17] MEDS: FAMOTIDINE PF 20 MG/2 ML VIAL IVP SCH (08:58)
[2017-06-17] MEDS: LACTOBACILLUS RHAMNOSUS GG 1 CAP CAPSULE PO SCH (08:58)
[2017-06-17] MEDS: AMIODARONE HCL 200 MG TABLET PO SCH (08:58)
[2017-06-17] MEDS: FUROSEMIDE 40 MG/4 ML VIAL IVP SCH (08:59)
[2017-06-17] MEDS: ceFAZolin SODIUM 1 GM in D5W 50 ML IV SCH (08:59)
[2017-06-17] MEDS: MENTHOL/ZINC OXIDE 113 GM OINT. TP SCH ×3 (09:00→16:48)
[2017-06-17] MEDS: LEVOTHYROXINE SODIUM 0.1 MG VIAL IVP SCH (09:00)
[2017-06-17] MEDS ORDERED: SILVER 44.4 ML GEL.ER.ML. TP SCH (09:00)
[2017-06-17] MEDS: ERGOCALCIFEROL 8000 UNITS/ML ORAL SOLUTION, 60 ML BOTTLE GT SCH (09:03)
[2017-06-17] MEDS: VANCOMYCIN HCL ORAL SOLUTION 250 MG/5 ML, 80 ML NG SCH ×2 (10:22→14:48)
[2017-06-17] MEDS: ANTIFUNGAL CLEAR OINTMENT TP SCH (10:26)
[2017-06-17] MEDS: FERROUS SULFATE 300 MG/5 ML UDC GT SCH (12:33)
[2017-06-17] MEDS ORDERED: D5W 500 ML IV ONE (13:30)
[2017-06-17] MEDS ORDERED: QUEtiapine FUMARATE 25 MG TABLET PO ONE (13:45)
[2017-06-17] MEDS ORDERED: PIPERACILLIN/TAZO 2.25G/DEX-IS 50 ML IV SCH (18:00)
[2017-06-17] MEDS ORDERED: WARFARIN SODIUM 5 MG TABLET PO SCH (18:00)
[2017-06-17] MEDS: HEPARIN 25,000 UNITS in 250 ML PREMIX IV PRN (18:30)
[2017-06-17] MEDS ORDERED: QUEtiapine FUMARATE 25 MG TABLET PO SCH (21:00)
== END 2017-06-17 23:18 | DRG 4 ==
LOC: SED 15:53 → STU 17:32 → SIC 05-24 23:34
PROVIDERS: ADMIT Internal Medicine; ATTEND Internal Medicine
PROC: 02HV33Z Insertion of Infusion Device into Superior Vena Cava, Percutaneous Approach (ICD-10-PCS; 2017-05-27)
PROC: 5A09357 Assistance with Respiratory Ventilation, Less than 24 Consecutive Hours, Continuous Positive Airway Pressure (ICD-10-PCS; 2017-05-30)
PROC: 5A1955Z Respiratory Ventilation, Greater than 96 Consecutive Hours (ICD-10-PCS; principal; 2017-05-31)
PROC: 0BH17EZ Insertion of Endotracheal Airway into Trachea, Via Natural or Artificial Opening (ICD-10-PCS; 2017-05-31)
PROC: 30233N1 Transfusion of Nonautologous Red Blood Cells into Peripheral Vein, Percutaneous Approach (ICD-10-PCS; 2017-06-04)
PROC: 0B110F4 Bypass Trachea to Cutaneous with Tracheostomy Device, Open Approach (ICD-10-PCS; 2017-06-14)
DX: A41.9 Sepsis, unspecified organism (principal); R65.21 Severe sepsis with septic shock; I21.3 ST elevation (STEMI) myocardial infarction of unspecified site; E43 Unspecified severe protein-calorie malnutrition; J18.9 Pneumonia, unspecified organism; I11.0 Hypertensive heart disease with heart failure; D68.59 Other primary thrombophilia; N17.9 Acute kidney failure, unspecified; E11.65 Type 2 diabetes mellitus with hyperglycemia; A04.7 Enterocolitis due to Clostridium difficile; I50.9 Heart failure, unspecified; J96.00 Acute respiratory failure, unspecified whether with hypoxia or hypercapnia; I48.92 Unspecified atrial flutter; K56.7 Ileus, unspecified; E87.1 Hypo-osmolality and hyponatremia; N39.0 Urinary tract infection, site not specified; I95.9 Hypotension, unspecified; E83.51 Hypocalcemia; E83.42 Hypomagnesemia; D63.8 Anemia in other chronic diseases classified elsewhere; I48.0 Paroxysmal atrial fibrillation; B96.5 Pseudomonas (aeruginosa) (mallei) (pseudomallei) as the cause of diseases classified elsewhere; E03.9 Hypothyroidism, unspecified; K21.9 Gastro-esophageal reflux disease without esophagitis; E78.5 Hyperlipidemia, unspecified; I25.10 Atherosclerotic heart disease of native coronary artery without angina pectoris; Z68.23 Body mass index [BMI] 23.0-23.9, adult; Z78.9 Other specified health status; Z86.718 Personal history of other venous thrombosis and embolism; Z79.4 Long term (current) use of insulin; Z79.82 Long term (current) use of aspirin; Z79.899 Other long term (current) drug therapy; Z95.5 Presence of coronary angioplasty implant and graft
CPT/HCPCS: 36415; 36600; 71010; 74000-TC; 78580-TC; 80048; 80053; 80061; 80076; 80307; 81000-TC; 82140-TC; 82306; 82803-TC; 82962; 83540-TC; 83550-TC; 83605; 83690-TC; 83735-TC; 83880; 84100-TC; 84439; 84478-TC; 84484; 85007; 85025; 85027; 85044-TC; 85610-TC; 85730-TC; 86886; 86900; 86901; 86920; 87040-TC; 87070-TC; 87081; 87086; 87186-TC; 87205-TC; 87230-TC; 93005; 93306; 93970; 94002; 94003; 94640; 94660; 96365; 99285; 99291; A6209; A6261; A9540; C1751; G0482; J0282; J0330; J0610; J0690; J0885; J1160; J1450; J1630; J1644; J1650; J1815; J1940; J2060; J2175; J2250; J2270; J2543; J3370; J3475; J3480; J3490; J7030; J7040; J7042; J7050; J7060; J7120; J7131; P9021